=== PATIENT | male | born 1935 | race Caucasian/White ===

== ENCOUNTER 2016-06-27 08:00 | Outpatient (CLI) | payer MEDICARE, OTHER | END 2016-06-27 08:01 | disposition home or self-care (01) | DX: E78.5 Hyperlipidemia, unspecified (principal); I25.10 Atherosclerotic heart disease of native coronary artery without angina pectoris ==

== ENCOUNTER 2017-01-13 10:49 | Outpatient (CLI) | payer MEDICARE, OTHER ==
--- NOTE | 2017-01-13 15:14 | XRAY Report ---
PELVIS AND LEFT HIP: 01/13/2017 COMPARISON: Reformatted images from an abdomen and pelvic CT of 10/03/2014. FINDINGS: There is advanced left hip degenerative change with joint space narrowing, subchondral scl erosis, spurring, and cyst formation. Mild degenerative change in the right hip. Vascular calcificati on present. No fracture or malalignment. IMPRESSION: SEVERE LEFT HIP DEGENERATIVE CHANGE. MILD RIGHT HIP DEGENERATIVE CHANGE. NO SUPERIMPOSED ACUTE FINDINGS. JOB #: [id number] EXT JOB #:[id number]
== END 2017-01-13 10:50 | disposition home or self-care (01) ==
LOC: DI.S 10:49
PROVIDERS: ATTEND Internal Medicine
DX: M16.0 Bilateral primary osteoarthritis of hip (principal)

== ENCOUNTER 2017-03-14 10:26 | Outpatient (CLI) | payer MEDICARE, OTHER ==
[2017-03-14 17:54] LABS: CHOL/HDL RATIO 2.8 (<5.0); CHOLESTEROL 113 mg/dL; HDL CHOLESTEROL 40 mg/dL; LDL CHOLESTEROL,DIRECT 57 mg/dL; LDL/HDL RATIO 1.3 (<3.6); TRIGLYCERIDES 110 mg/dL; VLDL CHOLESTEROL 22 mg/dL
== END 2017-03-14 10:27 | disposition home or self-care (01) ==
LOC: LAB.F 10:26
PROVIDERS: ATTEND Internal Medicine Cardiovascular Disease
DX: I10 Essential (primary) hypertension (principal); E78.5 Hyperlipidemia, unspecified
CPT/HCPCS: 36415; 80061; 84450; 84460

== ENCOUNTER 2017-08-14 08:00 | Outpatient (CLI) | payer MEDICARE, OTHER ==
[2017-08-14 18:06] LABS: ALT ALANINE AMINOTRANSFERASE 21 IU/L (10-60); AST ASPARTATE AMINOTRANSFERASE 19 IU/L (10-42); CHOL/HDL RATIO 3.7 (<5.0); CHOLESTEROL 131 mg/dL; HDL CHOLESTEROL 35 mg/dL; LDL CHOLESTEROL,CALCULATED 64 mg/dL; LDL CHOLESTEROL,DIRECT 55 mg/dL; LDL/HDL RATIO 1.8 (<3.6); VLDL CHOLESTEROL 32 mg/dL
== END 2017-08-14 23:59 ==
LOC: LAB.S 08:00
PROVIDERS: ATTEND Internal Medicine Cardiovascular Disease
DX: I11.0 Hypertensive heart disease with heart failure (principal); I50.32 Chronic diastolic (congestive) heart failure; E78.5 Hyperlipidemia, unspecified
CPT/HCPCS: 36415; 80061; 83721; 84450; 84460

== ENCOUNTER 2017-08-18 09:11 | Day surgery (SDC) | payer MEDICARE, OTHER ==
[2017-08-18] MEDS ORDERED: LACTATED RINGERS 1,000 ML IV ONE (09:17)
[2017-08-18] MEDS ORDERED: GLYCOPYRROLATE 1 MG/5 ML VIAL IVP ONE (11:30)
[2017-08-18] MEDS ORDERED: MIDAZOLAM 2 MG/2 ML VIAL IVP ONE (11:30)
[2017-08-18] MEDS ORDERED: PROPOFOL 200 MG/20 ML VIAL IVP ONE (11:30)
[2017-08-18] MEDS ORDERED: KETAMINE 500 MG/10 ML VIAL IVP ONE (11:30)
[2017-08-18 12:02] VITALS: BP 145/57
== END 2017-08-18 09:12 | disposition home or self-care (01) ==
LOC: SDS 09:11
PROVIDERS: ATTEND Surgery
PROC: 0DJD8ZZ Inspection of Lower Intestinal Tract, Via Natural or Artificial Opening Endoscopic (ICD-10-PCS; principal; 2017-08-18 10:15)
DX: R19.7 Diarrhea, unspecified (principal); D50.9 Iron deficiency anemia, unspecified; K62.5 Hemorrhage of anus and rectum; K64.8 Other hemorrhoids; Z85.038 Personal history of other malignant neoplasm of large intestine; I11.0 Hypertensive heart disease with heart failure; I50.9 Heart failure, unspecified; E78.00 Pure hypercholesterolemia, unspecified; Z87.891 Personal history of nicotine dependence; G47.30 Sleep apnea, unspecified; Z90.49 Acquired absence of other specified parts of digestive tract
CPT/HCPCS: 45378; J7120

== ENCOUNTER 2017-11-10 19:14 | Outpatient (CLI) | payer MEDICARE, OTHER ==
--- NOTE | 2017-11-10 20:45 | XRAY Report ---
Procedure Date: 11/10/2017 Accession Number: [id number] / [id number] Procedure: XR - Ankle 3 View LT CPT Code: FULL RESULT: EXAM: LEFT ANKLE RADIOGRAPHY EXAM DATE: 11/10/2017 07:24 PM. CLINICAL HISTORY: Left ankle swelling, pain medial edema of foot. COMPARISON: None. TECHNIQUE: 3 views. FINDINGS: Distal tibia screws for internal fixation. Old healed distal tibia and fibula diaphyseal fractures. Mild tibiotalar degenerative joint disease. No subluxation. The bones are demineralized. No evidence for acute fracture. Mild diffuse ankle soft tissue swelling. Arterial calcifications are noted. Calcaneal bone spurs. IMPRESSION: Mild diffuse ankle soft tissue swelling. Chronic, degenerative and postsurgical changes as above. No acute bone findings are seen. RADIA
--- NOTE | 2017-11-10 20:49 | Ultrasound Report ---
Procedure Date: 11/10/2017 Accession Number: [id number] / [id number] Procedure: US - Duplex Ext Veins Left CPT Code: FULL RESULT: EXAM: LEFT LOWER EXTREMITY VENOUS ULTRASOUND EXAM DATE: 11/10/2017 07:52 PM. CLINICAL HISTORY: L ANKLE SWELLING PAIN MEDIAL EDEMA OF FOOT. COMPARISON: None. TECHNIQUE: Real-time sonographic vascular imaging was performed by the box truck owner operator through the lower extremity utilizing both color-flow and Doppler spectral analysis. Multiple fuels sales representative static images were saved for review. FINDINGS: Common Femoral Vein (CFV): Normal. CFV-GSV Junction: Normal. Profunda Femoral Vein (PFV): Normal. Femoral Vein (FV) Prox: Normal. Femoral Vein (FV) Mid: Normal. Femoral Vein (FV) Dist: Normal. Popliteal Vein: Normal. Posterior Tibial Veins: The visualized segments appear normal. Peroneal Veins: The visualized segments appear normal. Contralateral Side CFV: Normal. Other: None. IMPRESSION: No evidence for deep venous thrombosis. RADIA
--- NOTE | 2017-11-10 22:37 | XRAY Report ---
Procedure Date: 11/10/2017 Accession Number: [id number] / [id number] Procedure: XR - Foot 3 View LT CPT Code: FULL RESULT: EXAM: LEFT FOOT RADIOGRAPHY EXAM DATE: 11/10/2017 07:46 PM. CLINICAL HISTORY: Left ankle swelling, pain, medial edema of foot. COMPARISON: None. TECHNIQUE: 3 views. FINDINGS: No acute fracture or dislocation is seen and alignment is within normal limits. No lytic lesions or periosteal reaction seen. Small calcaneal bone spurs. Tibiotalar degenerative joint disease. Moderate dorsal talonavicular osteophytes. Arterial calcifications are noted. No definite acute soft tissue findings are seen in the left foot. IMPRESSION: No acute findings are seen in the left foot. Degenerative changes as above. RADIA
== END 2017-11-10 19:15 | disposition home or self-care (01) ==
LOC: DI 19:14
PROVIDERS: ATTEND Nurse Practitioner Family
DX: M19.072 Primary osteoarthritis, left ankle and foot (principal); R22.42 Localized swelling, mass and lump, left lower limb; M77.32 Calcaneal spur, left foot

== ENCOUNTER 2017-11-28 17:23 | Emergency (ER) | payer MEDICARE, OTHER ==
[2017-11-28 18:34] LABS: ALBUMIN 3.5 g/dL (3.2-5.5); ALBUMIN/GLOBULIN RATIO 0.9 (1.0-2.2); BILIRUBIN,TOTAL 0.7 mg/dL (0.2-1.0); CALCIUM 9.5 mg/dL (8.5-10.3); CREATININE 2.4 mg/dL (0.6-1.2); MAGNESIUM 1.7 mg/dL (1.7-2.8); TOTAL PROTEIN 7.6 g/dL (6.7-8.2)
[2017-11-28] MEDS ORDERED: SODIUM CHLORIDE 0.9% 1,000 ML IV ONE ×2 (19:37→19:40)
[2017-11-28] MEDS ORDERED: SODIUM POLYSTYRENE SULFONATE 15 GM/60 ML BOTTLE PO STA (19:40)
[2017-11-28] MEDS ORDERED: FUROSEMIDE 40 MG/4 ML VIAL IVP STA (19:40)
[2017-11-28] MEDS ORDERED: SODIUM BICARBONATE ABBOJECT 50 MEQ/50 ML SYRINGE IVP STA (19:40)
[2017-11-28 20:58] LABS: CALCIUM 9.3 mg/dL (8.5-10.3); CREATININE 2.3 mg/dL (0.6-1.2)
--- NOTE | 2017-11-28 21:53 | ED Physician Documentation ---
PD HPI DYSPNEA - Stated complaint Stated Complaint: SENT BY DOC/POTASSIUM LEVEL - Chief complaint Chief Complaint: Cardiac - History obtained from History obtained from: Patient - History of Present Illness Timing - onset: Today (he had nuclear stress test done today, and had labs done this mryina as part of that. Did okay with the test part. Was called by the office to come to ER as his labs from this morning showed creatinine 2.5 and potassium 6.1. The office person I talked to who called here with the info for us di dnot have other prior labs so did not know baseline for him. the patient had been fasting since yesterday (and had not drank fluid either as part of that ) per directions for the test.) Timing - details: Other (no chest pain nor worse dyspnea per se, but is feeling thirsty and some hungry, having fasted since yesterday after dinner. He has had some exertional dyspnea for months, which has led to the current nuclear stress test.) Inciting event(s): No: Immobilization/travel Improved by: Rest Associated symptoms: Bilateral edema (chronic). No: Fever, Cough, Wheezing, Chest pain / discomfort Recently seen: Clinic (had first part of nuclear stress test done today.) Review of Systems Constitutional: denies: Fever, Chills Nose: denies: Rhinorrhea / runny nose, Congestion Throat: denies: Sore throat Cardiac: reports: Pedal edema. denies: Chest pain / pressure, Palpitations, Calf pain Respiratory: reports: Dyspnea (ongoing for months, with stress test being done to evaluate that.). denies: Cough GI: denies: Nausea, Vomiting, Diarrhea PD PAST MEDICAL HISTORY - Past Medical History Past Medical History: Yes Cardiovascular: Hypertension, High cholesterol, [place] Respiratory: Pneumonia, CPAP use GI: GI bleed : Incontinence HEENT: Chronic hearing loss Musculoskeletal: Gout - Past Surgical History Past Surgical History: Yes General: Bowel surgery Cardiovascular: CABG - Present Medications Home Medications: Ambulatory Orders Medication Instructions Recorded Confirmed Ascorbic Acid [Vitamin C] 500 mg PO DAILY 10/03/14 08/18/17 Citalopram [CeleXA] 20 mg PO DAILY 10/03/14 08/18/17 Ferrous Sulfate, Dried [Iron] 65 mg PO TID 10/03/14 08/18/17 Finasteride 5 mg PO DAILY 10/03/14 08/18/17 Furosemide [Lasix] 40 mg PO DAILY 10/03/14 08/18/17 Metoprolol Succinate 25 mg PO DAILY 10/03/14 08/18/17 [place]-3 Fatty Acids/Fish Oil [Fish 1,000 mg PO DAILY 10/03/14 08/18/17 Oil 1,000 mg Capsule] Simvastatin 40 mg PO DAILY 10/03/14 08/18/17 Tamsulosin HCl [Flomax] 0.4 mg PO DAILY 10/03/14 08/18/17 Glucosamine HCl/Chondroitin [place] 2 each PO DAILY 08/18/17 08/18/17 [Endur-Flex Sr Tablet] Multivitamin [Multivitamins] 1 each PO DAILY 08/18/17 08/18/17 Oxybutynin Chloride [Ditropan Xl] 10 mg PO DAILY 08/18/17 08/18/17 Potassium Chloride 10 meq PO DAILY 08/18/17 08/18/17 Turmeric Root Extract [Turmeric] 500 mg PO DAILY 08/18/17 08/18/17 Sod Polystyrene Sulf. [Kayexalate] 15 gm PO BID #1 bottle 11/28/17 - Allergies Allergies/Adverse Reactions: Allergies Allergy/AdvReac Type Severity Reaction Status Date / Time No Known Drug Allergies Allergy Verified 11/28/17 19:31 - Social History Does the pt smoke?: No Smoking Status: Never smoker Does the pt drink ETOH?: Yes Does the pt have substance abuse?: No - Immunizations Immunizations are current?: Yes - POLST Patient has POLST: No PD ED PE NORMAL - Vitals Vital signs reviewed: Yes - General General: Alert and oriented X 3, No acute distress, Well developed/nourished, Other (obese) - Neck Neck: Supple, no meningeal sign, No adenopathy - Cardiac Cardiac: RRR, No murmur - Respiratory Respiratory: Clear bilaterally - Abdomen Abdomen: Normal bowel sounds, Soft, Non tender - Back Back: No CVA TTP - Derm Derm: Normal color, Warm and dry - Extremities Extremities: No calf tenderness / cord, Other (1+ edema in both legs and ankles. Some chronic stasis changes noted. ) - Neuro Neuro: Alert and oriented X 3, No motor deficit, Normal speech - Psych Psych: Normal mood, Normal affect Results - Vitals Vitals: Vital Signs - 24 hr 11/28/17 11/28/17 11/28/17 17:48 18:22 19:25 Temperature 36.4 C L 36.4 C L Heart Rate 69 60 60 Respiratory 20 14 14 Rate Blood Pressure 102/54 L 139/64 H 147/67 H O2 Saturation 96 97 99 11/28/17 11/28/17 11/28/17 20:05 20:54 21:20 Temperature 36.0 C L Heart Rate 62 65 65 Respiratory 19 14 19 Rate Blood Pressure 151/73 H 166/75 H 147/76 H O2 Saturation 99 100 98 11/28/17 22:01 Temperature 36.2 C L Heart Rate 64 Respiratory 16 Rate Blood Pressure 157/76 H O2 Saturation 100 Oxygen O2 Source Room air - Tele (time rhythm occurred) presentation Telemetry / rhythm strip: Rate (60s), NSR, Other (normal QRS and no conduction abnormality seen. ) - Labs Labs: Laboratory Tests 11/28/17 11/28/17 18:10 20:45 Sodium 134 L 137 Potassium 5.9 H 5.8 H Chloride 106 105 Carbon Dioxide 19 L 24 Anion Gap 9.0 8.0 BUN 37 H 37 H Creatinine 2.4 H 2.3 H Estimated GFR (MDRD) 26 L 27 L Glucose 113 H 98 Calcium 9.5 9.3 Magnesium 1.7 Total Bilirubin 0.7 AST 23 ALT 23 Alkaline Phosphatase 59 Total Protein 7.6 Albumin 3.5 Globulin 4.1 Albumin/Globulin Ratio 0.9 L Lipase 46 PD MEDICAL DECISION MAKING - ED course Complexity details: reviewed results (potassium is lowering slowly (was 6.1 this morning, then 5.9, and 5.8) and creatinine 2.5, 2.4, 2.3. He feels okay and ECG normal. Seems related to recent underhydration atop chronic renal insufficiency (similar creatinine in 2016). I don't feel he needs hospitalization. ), considered differential (likely underhydration atop chronic renal insufficiency. ), d/w patient - Sepsis Event Vital Signs: Vital Signs - 24 hr 11/28/17 11/28/17 11/28/17 17:48 18:22 19:25 Temperature 36.4 C L 36.4 C L Heart Rate 69 60 60 Respiratory 20 14 14 Rate Blood Pressure 102/54 L 139/64 H 147/67 H O2 Saturation 96 97 99 11/28/17 11/28/17 11/28/17 20:05 20:54 21:20 Temperature 36.0 C L Heart Rate 62 65 65 Respiratory 19 14 19 Rate Blood Pressure 151/73 H 166/75 H 147/76 H O2 Saturation 99 100 98 11/28/17 22:01 Temperature 36.2 C L Heart Rate 64 Respiratory 16 Rate Blood Pressure 157/76 H O2 Saturation 100 Oxygen O2 Source Room air Departure - Departure Disposition: 01 Home, Self Care Clinical Impression: Acute hyperkalemia, Dehydration Chronic renal insufficiency Qualifiers: Chronic kidney disease stage: unspecified stage Qualified Code(s): N18.9 - Chronic kidney disease, unspecified Condition: Stable Record reviewed to determine appropriate education?: Yes Instructions: Hyperkalemia Dc Follow-Up: Wiliam Perez MD [Primary Care Provider] - Prescriptions: Sod Polystyrene Sulf. [Kayexalate] 15 gm PO BID #1 bottle Comments: Your creatinine which is a measure of kidney function and your potassium level were both elevated. These are likely elevated chronically to some degree but were worsened because of the under hydration of the last day or two. Continue with your nuclear stress test tomorrow as planned. Do the food restrictions as needed for the test. However make sure you stay well hydrated for water. I would hold your Lasix dose tomorrow. Add Kayexalate to help lower the potassium level over the next 2 days. Follow-up with your primary care to have your kidney function and potassium level rechecked on . Return if problems. Be sure you are not taking any potassium supplements nor high potassium rich foods. Discharge Date/Time: 11/28/17 22:10
[2017-11-28 22:02] VITALS: BP 157/76
== END 2017-11-28 22:10 | disposition home or self-care (01) ==
LOC: ED 17:23
DX: E87.5 Hyperkalemia (principal); E86.0 Dehydration; I12.9 Hypertensive chronic kidney disease with stage 1 through stage 4 chronic kidney disease, or unspecified chronic kidney disease; N18.9 Chronic kidney disease, unspecified; E78.00 Pure hypercholesterolemia, unspecified; I25.2 Old myocardial infarction; Z95.1 Presence of aortocoronary bypass graft
CPT/HCPCS: 36415; 80048; 80053; 83690; 83735; 96361; 96374; 96375; 99284; A9270

== ENCOUNTER 2018-12-26 12:15 | Outpatient (CLI) | payer MEDICARE, OTHER ==
[2018-12-26 17:40] LABS: BASOPHILS # (AUTO) 0.1 10^3/uL (0.0-0.1); BASOPHILS % (AUTO) 0.6 %; EOSINOPHILS # (AUTO) 0.1 10^3/uL (0.0-0.7); EOSINOPHILS % (AUTO) 1.2 %; HGB - HEMOGLOBIN 13.1 g/dL (14.0-18.0); LYMPHOCYTES # (AUTO) 1.4 10^3/uL (1.5-3.5); LYMPHOCYTES % (AUTO) 15.7 %; MEAN CORPUSCULAR HEMOGLOBIN 29.4 pg (27.0-31.0); MEAN CORPUSCULAR VOLUME 92.1 fL (80.0-94.0); MEAN PLATELET VOLUME 10.8 fL (7.4-11.4); MONOCYTES # (AUTO) 0.8 10^3/uL (0.0-1.0); MONOCYTES % (AUTO) 8.7 %; NEUTROPHILS # (AUTO) 6.5 10^3/uL (1.5-6.6); NEUTROPHILS % (AUTO) 73.2 %; PLT - PLATELET COUNT 198 10^3/uL (130-450); RED BLOOD COUNT 4.45 10^6/uL (4.70-6.10); WHITE BLOOD COUNT 8.9 x10^3/uL (4.8-10.8)
[2018-12-26 17:53] LABS: ALBUMIN 3.9 g/dL (3.2-5.5); ALKALINE PHOSPHATASE 86 IU/L (42-121); ALT ALANINE AMINOTRANSFERASE 18 IU/L (10-60); AST ASPARTATE AMINOTRANSFERASE 21 IU/L (10-42); BILIRUBIN,TOTAL 0.9 mg/dL (0.2-1.0); BUN - BLOOD UREA NITROGEN 26 mg/dL (6-20); CALCIUM 9.5 mg/dL (8.5-10.3); CARBON DIOXIDE - CO2 24 mmol/L (21-32); CHLORIDE 105 mmol/L (101-111); CHOL/HDL RATIO 2.6 (<5.0); CHOLESTEROL 114 mg/dL; CK- CREATINE KINASE 60 IU/L (22-269); CREATININE 1.8 mg/dL (0.6-1.2); GFR - MDRD 36 (>89); GLUCOSE 118 mg/dL (70-100); HDL CHOLESTEROL 44 mg/dL; LDL CHOLESTEROL,CALCULATED 49 mg/dL; LDL CHOLESTEROL,DIRECT 55 mg/dL; LDL/HDL RATIO 1.1 (<3.6); SODIUM 140 mmol/L (135-145); TOTAL PROTEIN 7.7 g/dL (6.7-8.2); VLDL CHOLESTEROL 21 mg/dL
== END 2018-12-26 12:16 | disposition home or self-care (01) ==
LOC: LAB.S 12:15
PROVIDERS: ATTEND Internal Medicine Cardiovascular Disease
DX: I11.0 Hypertensive heart disease with heart failure (principal); I50.32 Chronic diastolic (congestive) heart failure; I25.10 Atherosclerotic heart disease of native coronary artery without angina pectoris; E78.5 Hyperlipidemia, unspecified; I48.0 Paroxysmal atrial fibrillation; M10.9 Gout, unspecified
CPT/HCPCS: 36415; 80053; 80061; 82550; 83721; 83880; 84550; 85025

== ENCOUNTER 2019-01-25 09:44 | Outpatient (CLI) | payer MEDICARE, OTHER | END 2019-01-25 09:45 | disposition critical access hospital (66) | LOC: EMS 09:44 | PROVIDERS: ATTEND Surgery | DX: R06.02 Shortness of breath (principal) | CPT/HCPCS: A0425; A0427 ==

== ENCOUNTER 2019-01-25 10:27 | Emergency (ER) | payer MEDICARE, OTHER ==
[2019-01-25] MEDS ORDERED: LORazepam 2 MG/ML VIAL IVP STA (10:52)
[2019-01-25 11:02] LABS: BASOPHILS % (AUTO) 0.4 %; EOSINOPHILS # (AUTO) 0.1 10^3/uL (0.0-0.7); HGB - HEMOGLOBIN 12.7 g/dL (14.0-18.0); LYMPHOCYTES # (AUTO) 1.1 10^3/uL (1.5-3.5); LYMPHOCYTES % (AUTO) 11.5 %; MEAN CORPUSCULAR HEMOGLOBIN 29.6 pg (27.0-31.0); MEAN CORPUSCULAR VOLUME 92.5 fL (80.0-94.0); MEAN PLATELET VOLUME 9.8 fL (7.4-11.4); MONOCYTES # (AUTO) 0.8 10^3/uL (0.0-1.0); MONOCYTES % (AUTO) 8.1 %; NEUTROPHILS # (AUTO) 7.5 10^3/uL (1.5-6.6); NEUTROPHILS % (AUTO) 78.7 %; PLT - PLATELET COUNT 144 10^3/uL (130-450); RED BLOOD COUNT 4.29 10^6/uL (4.70-6.10); RED CELL DISTRIBUTION WIDTH 15.9 % (12.0-15.0); WHITE BLOOD COUNT 9.6 x10^3/uL (4.8-10.8)
--- NOTE | 2019-01-25 11:16 | ED Physician Documentation ---
PD HPI DYSPNEA - Stated complaint Stated Complaint: SOA - Chief complaint Chief Complaint: Resp - History obtained from History obtained from: Patient, EMS - History of Present Illness Timing - onset: Today Timing - onset during: Rest Timing - duration: Hours (1) Timing - details: Abrupt onset Pain level max: 0 Pain level now: 0 Inciting event(s): Other (states felt like he couldn't catch his breath today.) Improved by: BiPAP / CPAP, Sitting up Worsened by: Laying flat (lies flat at night with one small pillow) Associated symptoms: No: Fever, Cough, Hemoptysis, Wheezing, Chest pain / discomfort, Palpitations, Diaphoresis, Bilateral edema Similar symptoms before: Diagnosis (sleep apnea) - Additional information Additional information: feels better now. Recently started on omperazole and metoprolol increased. Review of Systems Ten Systems: 10 systems reviewed and negative Constitutional: denies: Fever, Chills Ears: denies: Ear pain Nose: denies: Rhinorrhea / runny nose, Congestion Throat: denies: Sore throat Cardiac: denies: Chest pain / pressure Respiratory: denies: Cough GI: denies: Nausea, Vomiting, Diarrhea Skin: denies: Rash Musculoskeletal: denies: Neck pain, Back pain Neurologic: denies: Headache PD PAST MEDICAL HISTORY - Past Medical History Cardiovascular: Hypertension, High cholesterol, [place] Respiratory: Pneumonia, CPAP use GI: GI bleed : Incontinence HEENT: Chronic hearing loss Musculoskeletal: Gout - Past Surgical History Past Surgical History: Yes General: Bowel surgery Cardiovascular: CABG - Present Medications Home Medications: Ambulatory Orders Medication Instructions Recorded Confirmed Ascorbic Acid [Vitamin C] 500 mg PO DAILY 10/03/14 08/18/17 Citalopram [CeleXA] 20 mg PO DAILY 10/03/14 08/18/17 Ferrous Sulfate, Dried [Iron] 65 mg PO TID 10/03/14 08/18/17 Finasteride 5 mg PO DAILY 10/03/14 08/18/17 Furosemide [Lasix] 40 mg PO DAILY 10/03/14 08/18/17 Metoprolol Succinate 25 mg PO DAILY 10/03/14 08/18/17 [place]-3 Fatty Acids/Fish Oil [Fish 1,000 mg PO DAILY 10/03/14 08/18/17 Oil 1,000 mg Capsule] Simvastatin 40 mg PO DAILY 10/03/14 08/18/17 Tamsulosin HCl [Flomax] 0.4 mg PO DAILY 10/03/14 08/18/17 Glucosamine HCl/Chondroitin [place] 2 each PO DAILY 08/18/17 08/18/17 [Endur-Flex Sr Tablet] Multivitamin [Multivitamins] 1 each PO DAILY 08/18/17 08/18/17 Oxybutynin Chloride [Ditropan Xl] 10 mg PO DAILY 08/18/17 08/18/17 Potassium Chloride 10 meq PO DAILY 08/18/17 08/18/17 Turmeric Root Extract [Turmeric] 500 mg PO DAILY 08/18/17 08/18/17 Sod Polystyrene Sulf. [Kayexalate] 15 gm PO BID #1 bottle 11/28/17 - Allergies Allergies/Adverse Reactions: Allergies Allergy/AdvReac Type Severity Reaction Status Date / Time lisinopril Allergy Unknown Verified 01/25/19 10:32 - Social History Does the pt smoke?: No Smoking Status: Never smoker Does the pt drink ETOH?: Yes ETOH Use: Wine Does the pt have substance abuse?: No - Immunizations Immunizations are current?: Yes - POLST Patient has POLST: Yes PD ED PE NORMAL - Vitals Vital signs reviewed: Yes - General General: Alert and oriented X 3, No acute distress, Other (obese male) - HEENT HEENT: PERRL, Moist mucous membranes - Neck Neck: Supple, no meningeal sign - Cardiac Cardiac: RRR, Strong equal pulses - Respiratory Respiratory: No respiratory distress, Clear bilaterally - Abdomen Abdomen: Normal bowel sounds, Soft, Non tender, Non distended - Derm Derm: Warm and dry - Extremities Extremities: Other (1+ BLE edema) - Neuro Neuro: Alert and oriented X 3 - Psych Psych: Normal mood, Normal affect Results - Vitals Vitals: Vital Signs - 24 hr 01/25/19 01/25/19 01/25/19 10:32 12:46 13:28 Temperature 37.1 C Heart Rate 62 74 79 Respiratory 17 22 22 Rate Blood Pressure 165/78 H 170/69 H 183/90 H O2 Saturation 95 99 93 Oxygen O2 Source Nasal cannula - EKG (time done) 1033 Rate: Rate (enter#) (76) Rhythm: NSR [place]: Normal Intervals: Normal DC QRS: Normal Ischemia: Normal ST segments - Labs Labs: Laboratory Tests 01/25/19 01/25/19 01/25/19 10:50 10:50 10:50 WBC 9.6 RBC 4.29 L Hgb 12.7 L Hct 39.7 L MCV 92.5 MCH 29.6 MCHC 32.0 RDW 15.9 H Plt Count 144 MPV 9.8 Neut # (Auto) 7.5 H Lymph # (Auto) 1.1 L [place] # (Auto) 0.8 Eos # (Auto) 0.1 Baso # (Auto) 0.0 Absolute Nucleated RBC 0.00 Nucleated RBC % 0.0 Sodium 140 Potassium 4.0 Chloride 107 Carbon Dioxide 23 Anion Gap 10.0 BUN 26 H Creatinine 1.5 H Estimated GFR (MDRD) 45 L Glucose 127 H Calcium 9.0 Total Bilirubin 1.5 H AST 18 ALT 17 Alkaline Phosphatase 71 B-Natriuretic Peptide 351 H Total Protein 7.5 Albumin 3.7 Globulin 3.8 Albumin/Globulin Ratio 1.0 Lipase 30 - Rads (name of study) cxr Radiology: Prelim report reviewed, EMP read contemporaneously, See rad report (pulm edema) PD MEDICAL DECISION MAKING - ED course Complexity details: reviewed results, re-evaluated patient, considered differential, d/w patient, d/w family ED course: Patient with what appears to be CHF exacerbation. He was just started on Lasix yesterday. Given extra dose of Lasix here with good urine output. He feels better after this. No hypoxia. Ambulating without difficulty. We will have him prop himself up at night. We will continue his CPAP at home. Patient has well-appearing, nontoxic. Afebrile. Patient and family counseled regarding signs and symptoms for which I believe and urgent re-evaluation would be necessary. Patient with good understanding of and agreement to plan and is comfortable going home at this time This document was made in part using voice recognition software. While efforts are made to proofread this document, sound alike and grammatical errors may occur. Departure - Departure Disposition: 01 Home, Self Care Clinical Impression: Pulmonary edema Qualifiers: Chronicity: acute Qualified Code(s): J81.0 - Acute pulmonary edema Congestive heart failure Qualifiers: Heart failure type: unspecified Heart failure chronicity: acute on chronic Qualified Code(s): I50.9 - Heart failure, unspecified Condition: Good Instructions: ED CHF General Follow-Up: Wiliam Perez MD [Primary Care Provider] - Within 3 Days Comments: Continue your Lasix at home. Return if you worsen. Follow-up with your doctor for further care. You likely will also sleep better if you are propped up on several pillows. Discharge Date/Time: 01/25/19 14:07
[2019-01-25 11:17] LABS: ALBUMIN 3.7 g/dL (3.2-5.5); BILIRUBIN,TOTAL 1.5 mg/dL (0.2-1.0); CREATININE 1.5 mg/dL (0.6-1.2); TOTAL PROTEIN 7.5 g/dL (6.7-8.2)
[2019-01-25] MEDS ORDERED: FUROSEMIDE 40 MG/4 ML VIAL IVP STA (11:56)
--- NOTE | 2019-01-25 12:11 | XRAY Report ---
Reason: cough Procedure Date: 01/25/2019 Accession Number: [id number] / [id number] Procedure: XR - Chest 2 View X-Ray CPT Code: 29593 FULL RESULT: EXAM: CHEST RADIOGRAPHY EXAM DATE: 01/25/2019 11:45 AM. CLINICAL HISTORY: Cough. COMPARISON: XR CHEST PA AND LAT 10/22/2011 4:57 PM. TECHNIQUE: 2 views. FINDINGS: Lungs/Pleura: Bilateral alveolar and interstitial opacification, compatible with pulmonary edema. Minimal consolidation versus fluid at the posterior costophrenic angles. Mediastinum: Previous cardiac surgery and median sternotomy. Heart size upper limits of normal. Other: None. IMPRESSION: Findings consistent with pulmonary edema. RADIA
[2019-01-25 13:28] VITALS: BP 183/90
== END 2019-01-25 14:07 | disposition home or self-care (01) ==
LOC: EDUNIT# → ED 10:27
DX: I11.0 Hypertensive heart disease with heart failure (principal); I50.1 Left ventricular failure, unspecified
CPT/HCPCS: 36415; 71046; 80053; 83690; 83880; 85025; 93005; 96374; 96375; 99283; 99284; J2060

== ENCOUNTER 2019-02-01 11:25 | Outpatient (CLI) | payer MEDICARE, OTHER ==
[2019-02-01 18:34] LABS: ALBUMIN 3.9 g/dL (3.2-5.5); CALCIUM 9.3 mg/dL (8.5-10.3); CREATININE 1.7 mg/dL (0.6-1.2); PHOSPHORUS 3.6 mg/dL (2.5-4.6)
== END 2019-02-01 11:26 | disposition home or self-care (01) ==
LOC: LAB.S 11:25
PROVIDERS: ATTEND Internal Medicine Cardiovascular Disease
DX: I25.10 Atherosclerotic heart disease of native coronary artery without angina pectoris (principal); I50.32 Chronic diastolic (congestive) heart failure; I48.0 Paroxysmal atrial fibrillation
CPT/HCPCS: 36415; 80048; 80069

== ENCOUNTER 2019-02-19 12:04 | Outpatient (CLI) | payer MEDICARE, OTHER ==
[2019-02-19 17:38] LABS: CALCIUM 9.7 mg/dL (8.5-10.3)
== END 2019-02-19 12:05 | disposition home or self-care (01) ==
LOC: LAB.S 12:04
PROVIDERS: ATTEND Physician Assistant
DX: I25.10 Atherosclerotic heart disease of native coronary artery without angina pectoris (principal); I50.32 Chronic diastolic (congestive) heart failure; I48.0 Paroxysmal atrial fibrillation
CPT/HCPCS: 36415; 80048; 83880

== ENCOUNTER 2019-03-01 15:35 | Outpatient (CLI) | payer MEDICARE, OTHER ==
[2019-03-01 18:19] LABS: CALCIUM 9.4 mg/dL (8.5-10.3); CREATININE 2.1 mg/dL (0.6-1.2)
== END 2019-03-01 15:36 | disposition home or self-care (01) ==
LOC: LAB.S 15:35
PROVIDERS: ATTEND Physician Assistant
DX: I50.32 Chronic diastolic (congestive) heart failure (principal); I25.10 Atherosclerotic heart disease of native coronary artery without angina pectoris; I48.0 Paroxysmal atrial fibrillation
CPT/HCPCS: 36415; 80048; 83880

== ENCOUNTER 2019-04-15 13:24 | Outpatient (CLI) | payer MEDICARE, OTHER ==
[2019-04-15 17:22] LABS: CALCIUM 9.1 mg/dL (8.5-10.3); CREATININE 1.7 mg/dL (0.6-1.2)
== END 2019-04-15 13:25 | disposition home or self-care (01) ==
LOC: LAB.S 13:24
PROVIDERS: ATTEND Internal Medicine Cardiovascular Disease
DX: I11.0 Hypertensive heart disease with heart failure (principal); I50.32 Chronic diastolic (congestive) heart failure
CPT/HCPCS: 36415; 80048; 83880

== ENCOUNTER 2019-05-21 13:02 | Outpatient (CLI) | payer MEDICARE, OTHER ==
--- NOTE | 2019-05-22 10:11 | XRAY Report ---
Reason: OSTEOARTHRITIS OF LT HIP Procedure Date: 05/21/2019 Accession Number: [id number] / [id number] Procedure: XRS - Hip w/Pelvis 2-3V LT CPT Code: Final Report FULL RESULT: EXAM: LEFT HIP RADIOGRAPHY EXAM DATE: 05/21/2019 01:29 PM. CLINICAL HISTORY: OSTEOARTHRITIS OF LT HIP. COMPARISON: HIP W/PELVIS 2-3V LT 01/13/2017 11:10 AM. TECHNIQUE: 2 views. FINDINGS: Bones: Normal. No fractures or bone lesion. Joints: Normal alignment of bilateral hips. There is severe left and moderate right hip joint space narrowing with osteophytes Soft Tissues: No soft tissue swelling. Vascular calcifications noted. IMPRESSION: 1. No evidence for acute fracture or dislocation. 2. 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 RADIA
== END 2019-05-21 13:03 | disposition home or self-care (01) ==
LOC: DI.S 13:02
PROVIDERS: ATTEND Internal Medicine
DX: M16.0 Bilateral primary osteoarthritis of hip (principal)

== ENCOUNTER 2019-07-18 14:22 | Outpatient (CLI) | payer MEDICARE, OTHER ==
[2019-07-18 16:08] LABS: BASOPHILS % (AUTO) 0.7 %; EOSINOPHILS # (AUTO) 0.1 10^3/uL (0.0-0.7); EOSINOPHILS % (AUTO) 1.5 %; HGB - HEMOGLOBIN 13.9 g/dL (14.0-18.0); LYMPHOCYTES # (AUTO) 1.2 10^3/uL (1.5-3.5); LYMPHOCYTES % (AUTO) 20.2 %; MEAN CORPUSCULAR HEMOGLOBIN 29.1 pg (27.0-31.0); MEAN CORPUSCULAR HGB CONC 31.7 g/dL (32.0-36.0); MEAN CORPUSCULAR VOLUME 91.8 fL (80.0-94.0); MEAN PLATELET VOLUME 10.7 fL (7.4-11.4); MONOCYTES # (AUTO) 0.6 10^3/uL (0.0-1.0); MONOCYTES % (AUTO) 9.3 %; NEUTROPHILS # (AUTO) 4.1 10^3/uL (1.5-6.6); NEUTROPHILS % (AUTO) 68.1 %; PLT - PLATELET COUNT 213 10^3/uL (130-450); RED BLOOD COUNT 4.77 10^6/uL (4.70-6.10); RED CELL DISTRIBUTION WIDTH 14.7 % (12.0-15.0); WHITE BLOOD COUNT 6.1 x10^3/uL (4.8-10.8)
[2019-07-18 16:20] LABS: BILIRUBIN,URINE NEGATIVE (NEGATIVE); GLUCOSE, URINE (UA) NEGATIVE (NEGATIVE); KETONES,URINE (UA) NEGATIVE (NEGATIVE); LEUKOCYTE ESTERASE, URINE NEGATIVE (NEGATIVE); NITRITE,URINE NEGATIVE (NEGATIVE); OCCULT BLOOD,URINE NEGATIVE (NEGATIVE); PH,URINE 6.5 PH (5.0-7.5); PROTEIN,URINE NEGATIVE (NEGATIVE); UROBILINOGEN,URINE 0.2 (NORMAL) E.U./dL (NORMAL)
[2019-07-18 16:24] LABS: ALBUMIN 3.9 g/dL (3.2-5.5); CALCIUM 9.7 mg/dL (8.5-10.3); CREATININE 1.7 mg/dL (0.6-1.2)
[2019-07-18 16:29] LABS: BACTERIA,URINE None Seen /HPF (None Seen); CLARITY,URINE CLEAR (CLEAR); RBC,URINE None Seen /HPF (0-5); SQUAMOUS EPITHELIAL CELL,UR NONE SEEN (<= Few)
== END 2019-07-18 14:23 | disposition home or self-care (01) ==
LOC: LAB.S 14:22
PROVIDERS: ATTEND Internal Medicine
DX: R44.1 Visual hallucinations (principal)
CPT/HCPCS: 36415; 80053; 81001; 82607; 82746; 84443; 85025; 87086

== ENCOUNTER 2019-07-19 09:05 | Outpatient (CLI) | payer MEDICARE, OTHER ==
--- NOTE | 2019-07-19 10:04 | CT Report ---
Reason: VISUAL HALLUCINATIONS Procedure Date: 07/19/2019 Accession Number: [id number] / [id number] Procedure: CT - HEAD WO CPT Code: Final Report FULL RESULT: EXAM: CT HEAD EXAM DATE: 07/19/2019 09:52 AM. CLINICAL HISTORY: VISUAL HALLUCINATIONS. COMPARISON: None. TECHNIQUE: Multiaxial CT images were obtained from the foramen magnum to the vertex. Reformats: Sagittal and coronal. IV contrast: None. In accordance with CT protocol optimization, one or more of the following dose reduction techniques were utilized for this exam: automated exposure control, adjustment of mA and/or KV based on patient size, or use of iterative reconstructive technique. FINDINGS: Parenchyma: Evidence of diffuse parenchymal volume loss. Mild low attenuation in the periventricular white matter. No acute hemorrhage, mass-effect, or midline shift. Andrea-white differentiation appears maintained. Extraaxial Spaces: No acute extra-axial collection. Ventricles: Appropriate in size and configuration. Sinuses and Orbits: Imaged paranasal sinuses with minimal thickening. Orbits and mastoids show no significant abnormality. Bones: No depressed skull fracture. Other: Atherosclerotic vascular calcification. IMPRESSION: No acute intracranial abnormal abnormality identified. Probable age-related diffuse parenchymal volume loss and chronic microvascular ischemic change. RADIA
== END 2019-07-19 09:06 | disposition home or self-care (01) ==
LOC: DI 09:05
PROVIDERS: ATTEND Internal Medicine
DX: R44.1 Visual hallucinations (principal)
CPT/HCPCS: 70450

== ENCOUNTER 2020-05-18 08:00 | Outpatient (CLI) | payer MEDICARE, OTHER ==
--- NOTE | 2020-05-18 15:57 | XRAY Report ---
PROCEDURE: Chest 2 View X-Ray INDICATIONS: SHORTNESS OF BREATH TECHNIQUE: 2 view(s) of the chest. COMPARISON: 01/25/2019. FINDINGS: Surgical changes and devices: Median sternotomy wires and surgical clips are again seen.. Lungs and pleura: No pleural effusions or pneumothorax. Increased opacity in right infrahilar region is noted, concerning for developing right lower lobe infiltrate. Mediastinum: Mediastinal contours are normal. Heart size is enlarged. Bones and chest wall: No suspicious bony abnormalities. Soft tissues appear unremarkable. IMPRESSION: Ill-defined increased opacity in right infrahilar region concerning for developing right lower lobe infiltrate. No pleural effusion or pneumothorax. Reviewed by: Alan Kelley MD on 05/18/2020 3:55 PM PST Approved by: Alan Kelley MD on 05/18/2020 3:55 PM PST Station ID: [id number]
[2020-05-18 19:54] LABS: BASOPHILS # (AUTO) 0.1 10^3/uL (0.0-0.1); BASOPHILS % (AUTO) 0.8 %; EOSINOPHILS # (AUTO) 0.2 10^3/uL (0.0-0.7); EOSINOPHILS % (AUTO) 2.3 %; HGB - HEMOGLOBIN 14.1 g/dL (14.0-18.0); LYMPHOCYTES # (AUTO) 1.5 10^3/uL (1.5-3.5); LYMPHOCYTES % (AUTO) 19.4 %; MEAN CORPUSCULAR HEMOGLOBIN 30.5 pg (27.0-31.0); MEAN CORPUSCULAR HGB CONC 32.3 g/dL (32.0-36.0); MEAN CORPUSCULAR VOLUME 94.4 fL (80.0-94.0); MEAN PLATELET VOLUME 10.3 fL (7.4-11.4); MONOCYTES # (AUTO) 0.7 10^3/uL (0.0-1.0); MONOCYTES % (AUTO) 9.5 %; NEUTROPHILS # (AUTO) 5.2 10^3/uL (1.5-6.6); NEUTROPHILS % (AUTO) 67.7 %; PLT - PLATELET COUNT 159 10^3/uL (130-450); RED BLOOD COUNT 4.62 10^6/uL (4.70-6.10); RED CELL DISTRIBUTION WIDTH 16.3 % (12.0-15.0); WHITE BLOOD COUNT 7.7 x10^3/uL (4.8-10.8)
[2020-05-18 20:18] LABS: ALBUMIN 3.2 g/dL (3.2-5.5); ALBUMIN/GLOBULIN RATIO 0.9 (1.0-2.2); BILIRUBIN,TOTAL 0.9 mg/dL (0.2-1.0); CREATININE 1.6 mg/dL (0.6-1.2); TOTAL PROTEIN 6.6 g/dL (6.7-8.2)
== END 2020-05-18 23:59 | disposition home or self-care (01) ==
LOC: DI.S 08:00
PROVIDERS: ATTEND Physician Assistant Medical
DX: R91.8 Other nonspecific abnormal finding of lung field (principal); R06.02 Shortness of breath; R05 Cough; Z20.822 Contact with and (suspected) exposure to COVID-19
CPT/HCPCS: 36415; 71046; 80053; 83880; 85025; 87275; 87276; U0004

== ENCOUNTER 2020-05-19 16:21 | Emergency (ER) | payer MEDICARE, OTHER ==
--- NOTE | 2020-05-19 16:49 | ED Physician Documentation ---
PD HPI CHEST PAIN - Stated complaint Stated Complaint: IRREGULAR HEARTBEAT/SOA - Chief complaint Chief Complaint: Cardiac - History obtained from History obtained from: Patient - Additional information Additional information: 85-year-old gentleman with history of coronary disease, CABG presents with shortness of breath which been ongoing and chronic. More recently yesterday was seen in urgent care. He does not remember for what. He said that his heart rate there was 195. Now presents feeling anxious. His wfe clarified that he's has been sick x 2 week with cough/sneezing. No fevers. Seen for that yesterday and rx doxycycline for CXR showing small RLL pna. Review of Systems Ten Systems: 10 systems reviewed and negative Constitutional: reports: Reviewed and negative Nose: denies: Rhinorrhea / runny nose, Congestion Throat: reports: Reviewed and negative Cardiac: reports: Palpitations. denies: Chest pain / pressure, Pedal edema, Calf pain Respiratory: reports: Dyspnea PD PAST MEDICAL HISTORY - Past Medical History Cardiovascular: Hypertension, High cholesterol, [place] Respiratory: Pneumonia, CPAP use GI: GI bleed : Incontinence HEENT: Chronic hearing loss Musculoskeletal: Gout - Past Surgical History Past Surgical History: Yes General: Bowel surgery Cardiovascular: CABG - Present Medications Home Medications: Ambulatory Orders Medication Instructions Recorded Confirmed Ascorbic Acid [Vitamin C] 500 mg PO DAILY 10/03/14 08/18/17 Citalopram [CeleXA] 20 mg PO DAILY 10/03/14 08/18/17 Ferrous Sulfate, Dried [Iron] 65 mg PO TID 10/03/14 08/18/17 Finasteride 5 mg PO DAILY 10/03/14 08/18/17 Furosemide [Lasix] 40 mg PO DAILY 10/03/14 08/18/17 Metoprolol Succinate 25 mg PO DAILY 10/03/14 08/18/17 [place]-3 Fatty Acids/Fish Oil [Fish 1,000 mg PO DAILY 10/03/14 08/18/17 Oil 1,000 mg Capsule] Simvastatin 40 mg PO DAILY 10/03/14 08/18/17 Tamsulosin HCl [Flomax] 0.4 mg PO DAILY 10/03/14 08/18/17 Glucosamine HCl/Chondroitin [place] 2 each PO DAILY 08/18/17 08/18/17 [Endur-Flex Sr Tablet] Multivitamin [Multivitamins] 1 each PO DAILY 08/18/17 08/18/17 Oxybutynin Chloride [Ditropan Xl] 10 mg PO DAILY 08/18/17 08/18/17 Potassium Chloride 10 meq PO DAILY 08/18/17 08/18/17 Turmeric Root Extract [Turmeric] 500 mg PO DAILY 08/18/17 08/18/17 Sod Polystyrene Sulf. [Kayexalate] 15 gm PO BID #1 bottle 11/28/17 - Allergies Allergies/Adverse Reactions: Allergies Allergy/AdvReac Type Severity Reaction Status Date / Time lisinopril Allergy Unknown Verified 05/19/20 16:36 - Social History Does the pt smoke?: No Smoking Status: Never smoker Does the pt drink ETOH?: Yes Does the pt have substance abuse?: No - Immunizations Immunizations are current?: Yes - POLST Patient has POLST: Yes PD ED PE NORMAL - Vitals Vital signs reviewed: Yes - General General: No acute distress, Well developed/nourished, Other (mild confusion) - HEENT HEENT: PERRL, EOMI - Neck Neck: Supple, no meningeal sign, No bony TTP - Cardiac Cardiac: Other (irreg, no murmur) - Respiratory Respiratory: No respiratory distress, Clear bilaterally - Abdomen Abdomen: Soft, Non tender - Back Back: No CVA TTP, No spinal TTP - Derm Derm: Normal color, Warm and dry - Extremities Extremities: No edema, No calf tenderness / cord - Neuro Eye Opening: Spontaneous Motor: Obeys Commands Verbal: Confused GCS Score: 14 Results - Vitals Vitals: Vital Signs - 24 hr 05/19/20 16:29 Temperature 36.5 C Heart Rate 65 Respiratory 20 Rate Blood Pressure 156/60 H Oxygen O2 Source Nasal cannula - EKG (time done) 1630 Rate: Rate (enter#) (61) Rhythm: Atrial fibrillation (with pvc) Intervals: LBBB Computer interpretation: Agree with computer - Labs Labs: Laboratory Tests 05/19/20 05/19/20 05/19/20 17:06 17:06 17:06 WBC 6.8 RBC 4.57 L Hgb 14.1 Hct 42.8 MCV 93.7 MCH 30.9 MCHC 32.9 RDW 15.9 H Plt Count 143 MPV 9.2 Neut # (Auto) 4.6 Lymph # (Auto) 1.2 L [place] # (Auto) 0.8 Eos # (Auto) 0.2 Baso # (Auto) 0.1 Absolute Nucleated RBC 0.00 Nucleated RBC % 0.0 PT 13.2 H INR 1.2 Sodium 140 Potassium 4.3 Chloride 103 Carbon Dioxide 28 Anion Gap 9.0 BUN 31 H Creatinine 1.5 H Estimated GFR (MDRD) 45 L Glucose 84 Calcium 9.2 Magnesium 2.0 Total Bilirubin 0.9 AST 28 ALT 21 Alkaline Phosphatase 114 Troponin I High Sens Total Protein 6.7 Albumin 3.3 Globulin 3.4 Albumin/Globulin Ratio 1.0 05/19/20 17:06 WBC RBC Hgb Hct MCV MCH MCHC RDW Plt Count MPV Neut # (Auto) Lymph # (Auto) [place] # (Auto) Eos # (Auto) Baso # (Auto) Absolute Nucleated RBC Nucleated RBC % PT INR Sodium Potassium Chloride Carbon Dioxide Anion Gap BUN Creatinine Estimated GFR (MDRD) Glucose Calcium Magnesium Total Bilirubin AST ALT Alkaline Phosphatase Troponin I High Sens 18.1 Total Protein Albumin Globulin Albumin/Globulin Ratio PD MEDICAL DECISION MAKING - ED course ED course: 85-year-old gentleman with atrial fibrillation presents with known pneumonia right lower lobe on antibiotic was referred here by PCP, sounds like yesterday during the walk test developed significant tachycardia. Here today his labs look good. His EKG showed A. fib without ischemic findings. We walked him up and down the hallway without significant desaturations or tachycardia. He was eager to go home. Departure - Departure Disposition: 01 Home, Self Care Clinical Impression: Pneumonia Qualifiers: Pneumonia type: due to unspecified organism Laterality: right Lung location: lower lobe of lung Qualified Code(s): J18.9 - Pneumonia, unspecified organism Atrial fibrillation Qualifiers: Atrial fibrillation type: unspecified Qualified Code(s): I48.91 - Unspecified atrial fibrillation Condition: Good Record reviewed to determine appropriate education?: Yes Instructions: Atrial Fibrillation Dc, ED Pneumonia Adult Comments: Continue the antibiotics prescribed to you yesterday. Return for new or worsening symptoms. Follow Dr. Perez's plan for following up with pulmonology as well as cardiology. Continue current medications.
[2020-05-19 17:17] LABS: BASOPHILS # (AUTO) 0.1 10^3/uL (0.0-0.1); BASOPHILS % (AUTO) 0.7 %; EOSINOPHILS # (AUTO) 0.2 10^3/uL (0.0-0.7); EOSINOPHILS % (AUTO) 2.9 %; HGB - HEMOGLOBIN 14.1 g/dL (14.0-18.0); LYMPHOCYTES # (AUTO) 1.2 10^3/uL (1.5-3.5); LYMPHOCYTES % (AUTO) 17.5 %; MEAN CORPUSCULAR HEMOGLOBIN 30.9 pg (27.0-31.0); MEAN CORPUSCULAR HGB CONC 32.9 g/dL (32.0-36.0); MEAN CORPUSCULAR VOLUME 93.7 fL (80.0-94.0); MEAN PLATELET VOLUME 9.2 fL (7.4-11.4); MONOCYTES # (AUTO) 0.8 10^3/uL (0.0-1.0); MONOCYTES % (AUTO) 11.2 %; NEUTROPHILS # (AUTO) 4.6 10^3/uL (1.5-6.6); NEUTROPHILS % (AUTO) 67.4 %; PLT - PLATELET COUNT 143 10^3/uL (130-450); RED BLOOD COUNT 4.57 10^6/uL (4.70-6.10); RED CELL DISTRIBUTION WIDTH 15.9 % (12.0-15.0); WHITE BLOOD COUNT 6.8 x10^3/uL (4.8-10.8)
[2020-05-19 17:25] LABS: INR 1.2 (0.8-1.2); PT - PROTHROMBIN TIME 13.2 secs (9.9-12.6)
[2020-05-19 17:29] LABS: ALBUMIN 3.3 g/dL (3.2-5.5); BILIRUBIN,TOTAL 0.9 mg/dL (0.2-1.0); CALCIUM 9.2 mg/dL (8.5-10.3); CREATININE 1.5 mg/dL (0.6-1.2); TOTAL PROTEIN 6.7 g/dL (6.7-8.2)
[2020-05-19 18:00] VITALS: BP 183/76
== END 2020-05-19 18:21 | disposition home or self-care (01) ==
LOC: ED 16:21
DX: I48.91 Unspecified atrial fibrillation (principal); I49.3 Ventricular premature depolarization; I44.7 Left bundle-branch block, unspecified; J18.9 Pneumonia, unspecified organism; I25.10 Atherosclerotic heart disease of native coronary artery without angina pectoris; Z95.1 Presence of aortocoronary bypass graft; I10 Essential (primary) hypertension
CPT/HCPCS: 36415; 80053; 83735; 84484; 85025; 85610; 93005; 99283; 99284

== ENCOUNTER 2021-01-25 15:17 | Outpatient (CLI) | payer MEDICARE, OTHER ==
[2021-01-25 20:08] LABS: BASOPHILS % (AUTO) 0.7 %; EOSINOPHILS # (AUTO) 0.1 10^3/uL (0.0-0.7); HCT - HEMATOCRIT 41.9 % (42.0-52.0); HGB - HEMOGLOBIN 13.9 g/dL (14.0-18.0); LYMPHOCYTES # (AUTO) 1.1 10^3/uL (1.5-3.5); LYMPHOCYTES % (AUTO) 17.6 %; MEAN CORPUSCULAR HEMOGLOBIN 31.7 pg (27.0-31.0); MEAN CORPUSCULAR HGB CONC 33.2 g/dL (32.0-36.0); MEAN CORPUSCULAR VOLUME 95.7 fL (80.0-94.0); MEAN PLATELET VOLUME 10.6 fL (7.4-11.4); MONOCYTES # (AUTO) 0.5 10^3/uL (0.0-1.0); MONOCYTES % (AUTO) 7.5 %; NEUTROPHILS # (AUTO) 4.5 10^3/uL (1.5-6.6); NEUTROPHILS % (AUTO) 72.9 %; PLT - PLATELET COUNT 151 10^3/uL (130-450); RED BLOOD COUNT 4.38 10^6/uL (4.70-6.10); WHITE BLOOD COUNT 6.1 x10^3/uL (4.8-10.8)
[2021-01-25 20:21] LABS: ALBUMIN/GLOBULIN RATIO 1.1 (1.0-2.2); BILIRUBIN,TOTAL 1.2 mg/dL (0.2-1.0); CALCIUM 9.4 mg/dL (8.5-10.3); CREATININE 1.9 mg/dL (0.6-1.2); POTASSIUM 4.1 mmol/L (3.5-5.0); TOTAL PROTEIN 7.7 g/dL (6.7-8.2)
[2021-01-25 20:34] LABS: THYROID STIMULATING HORMONE 2.41 uIU/mL (0.34-5.60)
[2021-01-25 21:24] LABS: FOLATE > 49.60 ng/mL (5.90 - >24.8)
== END 2021-01-25 15:18 | disposition home or self-care (01) ==
LOC: LAB.S 15:17
PROVIDERS: ATTEND Internal Medicine
DX: R41.3 Other amnesia (principal)
CPT/HCPCS: 36415; 80053; 82607; 82746; 84443; 85025

== ENCOUNTER 2021-04-08 16:29 | Outpatient (CLI) | payer MEDICARE, OTHER | END 2021-04-08 16:30 | disposition critical access hospital (66) | LOC: EMS 16:29 | DX: R11.10 Vomiting, unspecified (principal); R19.7 Diarrhea, unspecified; R55 Syncope and collapse | CPT/HCPCS: A0425; A0429 ==

== ENCOUNTER 2021-04-08 17:16 | Emergency (ER) | payer MEDICARE, OTHER ==
[2021-04-08 18:20] LABS: BASOPHILS % (AUTO) 0.5 %; EOSINOPHILS # (AUTO) 0.1 10^3/uL (0.0-0.7); HCT - HEMATOCRIT 42.3 % (42.0-52.0); LYMPHOCYTES # (AUTO) 0.9 10^3/uL (1.5-3.5); LYMPHOCYTES % (AUTO) 10.5 %; MEAN CORPUSCULAR HEMOGLOBIN 32.2 pg (27.0-31.0); MEAN CORPUSCULAR HGB CONC 33.1 g/dL (32.0-36.0); MEAN CORPUSCULAR VOLUME 97.2 fL (80.0-94.0); MEAN PLATELET VOLUME 9.9 fL (7.4-11.4); MONOCYTES # (AUTO) 0.7 10^3/uL (0.0-1.0); MONOCYTES % (AUTO) 8.8 %; NEUTROPHILS # (AUTO) 6.4 10^3/uL (1.5-6.6); PLT - PLATELET COUNT 130 10^3/uL (130-450); RED BLOOD COUNT 4.35 10^6/uL (4.70-6.10); RED CELL DISTRIBUTION WIDTH 14.1 % (12.0-15.0); WHITE BLOOD COUNT 8.1 x10^3/uL (4.8-10.8)
[2021-04-08 18:31] LABS: ALBUMIN 3.8 g/dL (3.2-5.5); ALBUMIN/GLOBULIN RATIO 0.9 (1.0-2.2); CALCIUM 9.5 mg/dL (8.5-10.3); CREATININE 1.9 mg/dL (0.6-1.2); POTASSIUM 4.8 mmol/L (3.5-5.0); TOTAL PROTEIN 7.9 g/dL (6.7-8.2)
--- NOTE | 2021-04-08 18:47 | XRAY Report ---
PROCEDURE: Chest 1 View X-Ray INDICATIONS: Chest Pain TECHNIQUE: One view of the chest was acquired. COMPARISON: CXR 05/18/2020. FINDINGS: Surgical changes and devices: Is made of sternotomy and CABG.. Lungs and pleura: No significant pleural effusions or pneumothorax. Comment perihilar markings bilat erally. This is increased compared to the prior exam. Mediastinum: Mediastinal contours appear unchanged. Heart size is prominent. Bones and chest wall: No suspicious bony lesions. Overlying soft tissues appear unremarkable. IMPRESSION: Mild to moderate fluid overload/CHF. Reviewed by: Geovanni Anderson MD on 04/08/2021 6:46 PM PST Approved by: Geovanni Anderson MD on 04/08/2021 6:46 PM PST Station ID: [id number]
--- NOTE | 2021-04-08 19:08 | ED Physician Documentation ---
History of Present Illness - Stated complaint Stated Complaint: SYNCOPE - Chief complaint Chief Complaint: Neuro - History obtained from History obtained from: Patient, Family - History of Present Illness Timing: Today Pain level max: 0 Pain level now: 0 - Additonal information Additional information: Patient is a 86-year-old male who presents to the emergency department stating that he felt lightheaded and dizzy today like the room was spinning. He felt nauseated as well. He states that his pulled out a chair for him to sit on and he sat down. Reportedly he had a syncopal event but patient denies this. Patient denies any chest pain, shortness of breath. He states he feels normal now. history of CABG and multiple stents. Review of Systems Ten Systems: 10 systems reviewed and negative Constitutional: denies: Fever, Chills Ears: denies: Ear pain Nose: denies: Rhinorrhea / runny nose, Congestion Throat: denies: Sore throat Cardiac: denies: Chest pain / pressure Respiratory: denies: Dyspnea, Cough GI: denies: Vomiting, Diarrhea Skin: denies: Rash Musculoskeletal: denies: Neck pain, Back pain Neurologic: denies: Headache PD PAST MEDICAL HISTORY - Past Medical History Past Medical History: Yes Cardiovascular: Hypertension, High cholesterol, [place] Respiratory: Pneumonia, CPAP use GI: GI bleed : Incontinence HEENT: Chronic hearing loss Musculoskeletal: Gout - Past Surgical History Past Surgical History: Yes General: Bowel surgery Cardiovascular: CABG - Present Medications Home Medications: Ambulatory Orders Medication Instructions Recorded Confirmed Ascorbic Acid [Vitamin C] 500 mg PO DAILY 10/03/14 08/18/17 Citalopram [CeleXA] 20 mg PO DAILY 10/03/14 08/18/17 Ferrous Sulfate, Dried [Iron] 65 mg PO TID 10/03/14 08/18/17 Finasteride 5 mg PO DAILY 10/03/14 08/18/17 Furosemide [Lasix] 40 mg PO DAILY 10/03/14 08/18/17 Metoprolol Succinate 25 mg PO DAILY 10/03/14 08/18/17 [place]-3 Fatty Acids/Fish Oil [Fish 1,000 mg PO DAILY 10/03/14 08/18/17 Oil 1,000 mg Capsule] Simvastatin 40 mg PO DAILY 10/03/14 08/18/17 Tamsulosin HCl [Flomax] 0.4 mg PO DAILY 10/03/14 08/18/17 Glucosamine HCl/Chondroitin [place] 2 each PO DAILY 08/18/17 08/18/17 [Endur-Flex Sr Tablet] Multivitamin [Multivitamins] 1 each PO DAILY 08/18/17 08/18/17 Oxybutynin Chloride [Ditropan Xl] 10 mg PO DAILY 08/18/17 08/18/17 Potassium Chloride 10 meq PO DAILY 08/18/17 08/18/17 Turmeric Root Extract [Turmeric] 500 mg PO DAILY 08/18/17 08/18/17 Sod Polystyrene Sulf. [Kayexalate] 15 gm PO BID #1 bottle 11/28/17 - Allergies Allergies/Adverse Reactions: Allergies Allergy/AdvReac Type Severity Reaction Status Date / Time lisinopril Allergy Unknown Verified 05/19/20 16:36 - Social History Does the pt smoke?: No Smoking Status: Never smoker Does the pt drink ETOH?: Yes Does the pt have substance abuse?: No - Immunizations Immunizations are current?: Yes - POLST Patient has POLST: Yes PD ED PE NORMAL - Vitals Vital signs reviewed: Yes - General General: Alert and oriented X 3, No acute distress - HEENT HEENT: Moist mucous membranes - Neck Neck: Supple, no meningeal sign - Cardiac Cardiac: RRR, Strong equal pulses - Respiratory Respiratory: No respiratory distress, Clear bilaterally - Abdomen Abdomen: Soft, Non tender, Non distended - Derm Derm: Warm and dry - Extremities Extremities: No edema, No calf tenderness / cord - Neuro Neuro: Alert and oriented X 3 - Psych Psych: Normal mood, Normal affect Results - Vitals Vitals: Vital Signs - 24 hr 04/08/21 04/08/21 04/08/21 17:27 18:41 19:00 Temperature 37.0 C 36.5 C Heart Rate 60 77 Respiratory 22 24 22 Rate Blood Pressure 169/81 H 126/77 163/101 H O2 Saturation 98 97 98 04/08/21 04/08/21 04/08/21 20:00 20:30 21:14 Temperature Heart Rate 69 80 70 Respiratory 21 19 23 Rate Blood Pressure 166/81 H 140/96 H 163/94 H O2 Saturation 96 96 95 04/08/21 21:34 Temperature Heart Rate 71 Respiratory 18 Rate Blood Pressure 165/101 H O2 Saturation 98 Oxygen O2 Source Room air - EKG (time done) 1832 Rate: Rate (enter#) (77) Rhythm: Atrial fibrillation [place]: Normal QRS: Normal Ischemia: Normal ST segments - Labs Labs: Laboratory Tests 04/08/21 04/08/21 04/08/21 18:13 18:13 18:13 WBC 8.1 RBC 4.35 L Hgb 14.0 Hct 42.3 MCV 97.2 H MCH 32.2 H MCHC 33.1 RDW 14.1 Plt Count 130 MPV 9.9 Neut # (Auto) 6.4 Lymph # (Auto) 0.9 L [place] # (Auto) 0.7 Eos # (Auto) 0.1 Baso # (Auto) 0.0 Absolute Nucleated RBC 0.00 Nucleated RBC % 0.0 PT INR APTT Sodium 140 Potassium 4.8 Chloride 103 Carbon Dioxide 25 Anion Gap 12.0 BUN 31 H Creatinine 1.9 H Estimated GFR (MDRD) 34 L Glucose 97 Calcium 9.5 Total Bilirubin 1.0 AST 24 ALT 23 Alkaline Phosphatase 135 H Troponin I High Sens 95.4 H* B-Natriuretic Peptide Total Protein 7.9 Albumin 3.8 Globulin 4.1 Albumin/Globulin Ratio 0.9 L Lipase 41 Urine Color Urine Clarity Urine pH Ur Specific [place] Urine Protein Urine Glucose (UA) Urine Ketones Urine Occult Blood Urine Nitrite Urine Bilirubin Urine Urobilinogen Ur Leukocyte Esterase Urine RBC Urine WBC Ur Squamous Epith Cells Urine Bacteria Urine Casts Urine Culture Comments Nasal Adenovirus (PCR) Nasal B. parapertussis DNA (PCR) Nasal Coronavir 229E PCR Nasal Coronavir HKU1 PCR Nasal Coronavir NL63 PCR Nasal Coronavir OC43 PCR Nasal Enterovir/Rhinovir PCR Nasal Influenza B PCR Nasal Influenza A PCR Nasal Parainfluen 1 PCR Nasal Parainfluen 2 PCR Nasal Parainfluen 3 PCR Nasal Parainfluen 4 PCR Nasal RSV (PCR) Nasal B.pertussis DNA PCR Nasal C.pneumoniae (PCR) Riki Human Metapneumo PCR Nasal M.pneumoniae (PCR) Nasal SARS-CoV-2 (PCR) 04/08/21 04/08/21 04/08/21 18:50 20:00 20:00 WBC RBC Hgb Hct MCV MCH MCHC RDW Plt Count MPV Neut # (Auto) Lymph # (Auto) [place] # (Auto) Eos # (Auto) Baso # (Auto) Absolute Nucleated RBC Nucleated RBC % PT INR APTT Sodium Potassium Chloride Carbon Dioxide Anion Gap BUN Creatinine Estimated GFR (MDRD) Glucose Calcium Total Bilirubin AST ALT Alkaline Phosphatase Troponin I High Sens 141.5 H* B-Natriuretic Peptide 432 H Total Protein Albumin Globulin Albumin/Globulin Ratio Lipase Urine Color YELLOW Urine Clarity CLEAR Urine pH 5.5 Ur Specific [place] 1.020 Urine Protein TRACE Urine Glucose (UA) NEGATIVE Urine Ketones NEGATIVE Urine Occult Blood NEGATIVE Urine Nitrite NEGATIVE Urine Bilirubin NEGATIVE Urine Urobilinogen 0.2 (NORMAL) Ur Leukocyte Esterase NEGATIVE Urine RBC None Seen Urine WBC 0-3 Ur Squamous Epith Cells NONE SEEN Urine Bacteria None Seen Urine Casts 0-2 Hyaline Casts Urine Culture Comments NOT INDICATED Nasal Adenovirus (PCR) Nasal B. parapertussis DNA (PCR) Nasal Coronavir 229E PCR Nasal Coronavir HKU1 PCR Nasal Coronavir NL63 PCR Nasal Coronavir OC43 PCR Nasal Enterovir/Rhinovir PCR Nasal Influenza B PCR Nasal Influenza A PCR Nasal Parainfluen 1 PCR Nasal Parainfluen 2 PCR Nasal Parainfluen 3 PCR Nasal Parainfluen 4 PCR Nasal RSV (PCR) Nasal B.pertussis DNA PCR Nasal C.pneumoniae (PCR) Riki Human Metapneumo PCR Nasal M.pneumoniae (PCR) Nasal SARS-CoV-2 (PCR) 04/08/21 04/08/21 21:14 21:30 WBC RBC Hgb Hct MCV MCH MCHC RDW Plt Count MPV Neut # (Auto) Lymph # (Auto) [place] # (Auto) Eos # (Auto) Baso # (Auto) Absolute Nucleated RBC Nucleated RBC % PT 14.0 H INR 1.3 H APTT 32.3 Sodium Potassium Chloride Carbon Dioxide Anion Gap BUN Creatinine Estimated GFR (MDRD) Glucose Calcium Total Bilirubin AST ALT Alkaline Phosphatase Troponin I High Sens B-Natriuretic Peptide Total Protein Albumin Globulin Albumin/Globulin Ratio Lipase Urine Color Urine Clarity Urine pH Ur Specific [place] Urine Protein Urine Glucose (UA) Urine Ketones Urine Occult Blood Urine Nitrite Urine Bilirubin Urine Urobilinogen Ur Leukocyte Esterase Urine RBC Urine WBC Ur Squamous Epith Cells Urine Bacteria Urine Casts Urine Culture Comments Nasal Adenovirus (PCR) NOT DETECTED Nasal B. parapertussis DNA (PCR) NOT DETECTED Nasal Coronavir 229E PCR NOT DETECTED Nasal Coronavir HKU1 PCR NOT DETECTED Nasal Coronavir NL63 PCR NOT DETECTED Nasal Coronavir OC43 PCR NOT DETECTED Nasal Enterovir/Rhinovir PCR NOT DETECTED Nasal Influenza B PCR NOT DETECTED Nasal Influenza A PCR NOT DETECTED Nasal Parainfluen 1 PCR NOT DETECTED Nasal Parainfluen 2 PCR NOT DETECTED Nasal Parainfluen 3 PCR NOT DETECTED Nasal Parainfluen 4 PCR NOT DETECTED Nasal RSV (PCR) NOT DETECTED Nasal B.pertussis DNA PCR NOT DETECTED Nasal C.pneumoniae (PCR) NOT DETECTED Riki Human Metapneumo PCR NOT DETECTED Nasal M.pneumoniae (PCR) NOT DETECTED Nasal SARS-CoV-2 (PCR) NOT DETECTED - Rads (name of study) cxr Radiology: Final report received, EMP read contemporaneously, See rad report (Mild to moderate fluid overload/CHF. ) PD MEDICAL DECISION MAKING - ED course Complexity details: reviewed results, re-evaluated patient, considered differential, d/w patient, d/w loan consultant ED course: 86-year-old male with a NSTEMI. Started on a heparin drip and given aspirin. Asymptomatic here. Long history of cardiac disease including CABG and multiple stents. No beds are available currently in the region. He is on several waiting list. I did discuss the case with Anisha, the transfer center RN at the [facility], she will have a paper mill manager call back and we will continue looking for a bed placement. Patient signed out to Dr. Galvin for further care. This document was made in part using voice recognition software. While efforts are made to proofread this document, sound alike and grammatical errors may occur. Departure - Departure Disposition: 02 Transfer Acute Care Hosp Clinical Impression: NSTEMI (non-ST elevated myocardial infarction) Pulmonary edema Qualifiers: Chronicity: acute Qualified Code(s): J81.0 - Acute pulmonary edema Congestive heart failure Qualifiers: Heart failure type: unspecified Heart failure chronicity: acute on chronic Qualified Code(s): I50.9 - Heart failure, unspecified Condition: Stable
[2021-04-08 19:09] LABS: BILIRUBIN,URINE NEGATIVE (NEGATIVE); GLUCOSE, URINE (UA) NEGATIVE (NEGATIVE); KETONES,URINE (UA) NEGATIVE (NEGATIVE); LEUKOCYTE ESTERASE, URINE NEGATIVE (NEGATIVE); NITRITE,URINE NEGATIVE (NEGATIVE); OCCULT BLOOD,URINE NEGATIVE (NEGATIVE); PH,URINE 5.5 PH (5.0-7.5); PROTEIN,URINE TRACE mg/dL (NEGATIVE); UROBILINOGEN,URINE 0.2 (NORMAL) E.U./dL (NORMAL)
[2021-04-08 19:16] LABS: CLARITY,URINE CLEAR (CLEAR)
[2021-04-08 19:34] LABS: BACTERIA,URINE None Seen /HPF (None Seen); RBC,URINE None Seen /HPF (0-5); SQUAMOUS EPITHELIAL CELL,UR NONE SEEN (<= Few); WBC,URINE 0-3 /HPF (0-3)
[2021-04-08] MEDS ORDERED: ASPIRIN CHEW 81 MG TABLET PO STA (20:51)
[2021-04-08] MEDS: HEPARIN 25000UNITS/500ML (D5W) 25,000 UNIT/500 ML BAG IV SCH (21:08)
[2021-04-08 21:25] LABS: INR 1.3 (0.8-1.2)
[2021-04-08 21:32] LABS: PARTIAL THROMBOPLASTIN TIME 32.3 secs (24.9-33.3)
[2021-04-08 22:26] LABS: B. PARAPERTUSSIS- RESP PCR PAN NOT DETECTED; B. PERTUSSIS- RESP PCR PANEL NOT DETECTED; C. PNEUMONIAE- RESP PCR PANEL NOT DETECTED; CORONAVIRUS 229E-RESP PCR NOT DETECTED; CORONAVIRUS HKU1-RESP PCR NOT DETECTED; CORONAVIRUS NL63-RESP PCR NOT DETECTED; CORONAVIRUS OC43-RESP PCR NOT DETECTED; HUMAN METAPNEUMOVIRUS NOT DETECTED; INFLUENZA A- RESP PCR PANEL NOT DETECTED; INFLUENZA B - RESP PCR PANEL NOT DETECTED; M. PNEUMONIAE- RESP PCR PANEL NOT DETECTED; PARAINFLUENZA VIRUS 1 NOT DETECTED; PARAINFLUENZA VIRUS 2 NOT DETECTED; PARAINFLUENZA VIRUS 3 NOT DETECTED; PARAINFLUENZA VIRUS 4 NOT DETECTED; RHINOVIRUS/ENTEROVIRUS NOT DETECTED; RSV- RESP PCR PANEL NOT DETECTED; SARS-CoV-2 -RESP PCR PANEL NOT DETECTED
[2021-04-08] MEDS ORDERED: FUROSEMIDE 40 MG/4 ML VIAL IVP STA (22:34)
[2021-04-09] MEDS ORDERED: FUROSEMIDE 40 MG/4 ML VIAL IVP STA (13:33)
[2021-04-09] MEDS: HEPARIN 25000UNITS/500ML (D5W) 25,000 UNIT/500 ML BAG IV SCH (18:00)
--- NOTE | 2021-04-09 18:02 | ED Physician Documentation ---
ED Addendum - Addendum Addendum: 04/09/21 17:58The patient had remained stable through the day. He has remained on the heparin drip. He did have an echocardiogram this morning which showed an enlarged ventricles consistent with still likely fluid overload. There was no focal or asymmetric wall activity. Ejection fraction approximately 50%. He was given a repeat dose of Lasix today as well. The patient did not have any chest pain during the day. We contacted several hospitals to see on their bed status. Subsequently scheduled hospital was able to have a bed available. I talked with Dr. Soria the hourly team members on-call who says he would consult on the patient and referred to the hospitalist service. I talked with Dr. Chavez who is on as the hospitalist. He did ask for the echo report which I did not have in writing at the time I talked to him but subsequently I did update him when the official report became available. He talked with Dr. Soria and concurred with excepting the patient. The patient did have a D-dimer done as well which was elevated above our lab normal range but if age-adjusted would actually be within normal given his age of 86. He is already on heparin and has a somewhat elevated creatinine of 1.9. At this point I decided not to do a angio for the contrast load concern but keeping in reserve in case cardiology wants to do a heart cath. He is being treated with a heparin drip for potential of clots anyway. The patient is being transferred by ground ALS ambulance in stable condition. Disposition: The patient is transferred to acute care hospital in stable condition. Diagnoses: 1. Dyspnea 2. Acute syncopal episode 3. History of coronary disease with bypass surgery. 4. Elevated troponin consistent with myocardial injury acutely 5. Chronic renal insufficiency
[2021-04-09 18:04] VITALS: BP 162/85
== END 2021-04-09 18:32 | disposition short-term general hospital (02) ==
LOC: EDUNIT# → ED 17:16
DX: I21.4 Non-ST elevation (NSTEMI) myocardial infarction (principal); I13.0 Hypertensive heart and chronic kidney disease with heart failure and stage 1 through stage 4 chronic kidney disease, or unspecified chronic kidney disease; I50.1 Left ventricular failure, unspecified; N18.9 Chronic kidney disease, unspecified; R55 Syncope and collapse; I48.91 Unspecified atrial fibrillation; I25.10 Atherosclerotic heart disease of native coronary artery without angina pectoris; Z95.5 Presence of coronary angioplasty implant and graft; Z95.1 Presence of aortocoronary bypass graft; Z20.822 Contact with and (suspected) exposure to COVID-19
CPT/HCPCS: 36415; 71045; 80053; 81001; 83690; 83880; 84484; 85025; 85379; 85610; 85730; 87631; 93005; 93306; 96365; 96366; 96375; 96376; 99285; A9270; 0202U; 87086

== ENCOUNTER 2021-04-09 18:25 | Outpatient (CLI) | payer MEDICARE, OTHER | END 2021-04-09 18:26 | disposition short-term general hospital (02) | LOC: EMS 18:25 | PROVIDERS: ATTEND Emergency Medicine | DX: I21.4 Non-ST elevation (NSTEMI) myocardial infarction (principal) | CPT/HCPCS: A0425; A0428 ==

== ENCOUNTER 2021-05-11 12:56 | Outpatient (CLI) | payer MEDICARE, OTHER | END 2021-05-11 12:57 | disposition short-term general hospital (02) | LOC: EMS 12:56 | DX: R42 Dizziness and giddiness (principal); R07.89 Other chest pain; R11.2 Nausea with vomiting, unspecified; I25.2 Old myocardial infarction | CPT/HCPCS: A0425; A0427 ==

== ENCOUNTER 2021-06-29 12:47 | Outpatient (CLI) | payer MEDICARE, OTHER ==
[2021-06-29 15:08] LABS: ALBUMIN 3.7 g/dL (3.2-5.5); CALCIUM 9.2 mg/dL (8.5-10.3); CREATININE 1.8 mg/dL (0.6-1.2); PHOSPHORUS 4.2 mg/dL (2.5-4.6); POTASSIUM 3.9 mmol/L (3.5-5.0)
== END 2021-06-29 12:48 | disposition home or self-care (01) ==
LOC: LAB.S 12:47
PROVIDERS: ATTEND Internal Medicine Cardiovascular Disease
DX: R55 Syncope and collapse (principal); I11.0 Hypertensive heart disease with heart failure; I50.32 Chronic diastolic (congestive) heart failure; I50.22 Chronic systolic (congestive) heart failure; I25.10 Atherosclerotic heart disease of native coronary artery without angina pectoris; E78.5 Hyperlipidemia, unspecified
CPT/HCPCS: 36415; 80048; 80069

== ENCOUNTER 2021-07-15 13:44 | Outpatient (CLI) | payer MEDICARE, OTHER ==
--- NOTE | 2021-07-15 16:54 | XRAY Report ---
PROCEDURE: Knee 2 View RT INDICATIONS: OSTEOARTHRITIS OF RIGHT KNEE TECHNIQUE: 2 views of the right knee(s) were acquired. COMPARISON: None. FINDINGS: Bones: No fractures or dislocations. No suspicious bony lesions. Mild tricompartment periarticular osteophyte formation. Soft tissues: No joint effusion. No suspicious soft tissue calcifications. IMPRESSION: Osteoarthritis. No acute fracture. No osseous lesion. If symptoms and/or clinical suspici on for pathology continue, further assessment with repeat plain films, or advanced imaging (e.g., CT, MRI, or bone scan) is recommended for further assessment. Reviewed by: Hasmukh Shrestha MD on 07/15/2021 4:53 PM PDT Approved by: Hasmukh Shrestha MD on 07/15/2021 4:53 PM PDT Station ID: [id number]
== END 2021-07-15 13:45 | disposition home or self-care (01) ==
LOC: DI.S 13:44
PROVIDERS: ATTEND Internal Medicine
DX: M17.11 Unilateral primary osteoarthritis, right knee (principal)

== ENCOUNTER 2021-07-22 11:38 | Outpatient (CLI) | payer MEDICARE, OTHER | END 2021-07-22 11:39 | disposition critical access hospital (66) | LOC: EMS 11:38 | DX: R42 Dizziness and giddiness (principal) | CPT/HCPCS: A0425; A0429 ==

== ENCOUNTER 2021-07-22 12:21 | Emergency (ER) | payer MEDICARE, OTHER ==
--- NOTE | 2021-07-22 12:36 | ED Physician Documentation ---
PD HPI Fall - Stated complaint Stated Complaint: FALL - History obtained from History obtained from: Patient - History of Present Illness Mechanism of injury: Lost balance (he says he has had pain right knee for over a week. He had prior Rx for prednisone and took 60 mg. few days ago without improvement. Has had balance problems due to knee pain with walking. He says he fell last night against wall due to knee giving out. SLid to ground. Has also had chronic vertigo.) Fall distance: Standing position Where injury occurred: Home Timing - onset: Last night Injury(ies) location: Other (already with knee pain prior to fall. Not worse.). No: Head, Neck, Chest, Abdomen Associated symptoms: Other (vertigo with quick head movement ongoing chronic.). No: LOC, AMS, Weakness, Paresthesias Worsens with: Movement (of right knee), Palpation (anteriorly) Contributing factors: No: Anticoagulated, Intoxicated Similar symptoms before: Diagnosis (history of gout in the past and steroids usually help.) Recently seen: Not recently seen Review of Systems Psychiatric: reports: Hallucinations (he thought he had some visual hallucinations last night of objects in wrong places but then were in right place when looked again.) PD PAST MEDICAL HISTORY - Past Medical History Cardiovascular: Hypertension, High cholesterol, [place] Respiratory: Pneumonia, CPAP use GI: GI bleed : Incontinence HEENT: Chronic hearing loss Musculoskeletal: Gout - Past Surgical History Past Surgical History: Yes General: Bowel surgery Cardiovascular: CABG - Present Medications Home Medications: Ambulatory Orders Medication Instructions Recorded Confirmed Citalopram [CeleXA] 40 mg PO DAILY 10/03/14 04/08/21 Ferrous Sulfate, Dried [Iron] 65 mg PO TID 10/03/14 04/08/21 Finasteride 5 mg PO DAILY 10/03/14 04/08/21 Metoprolol Succinate 50 mg PO DAILY 10/03/14 04/08/21 [place]-3 Fatty Acids/Fish Oil [Fish 1,000 mg PO DAILY 10/03/14 04/08/21 Oil 1,000 mg Capsule] Simvastatin 40 mg PO DAILY 10/03/14 04/08/21 Tamsulosin HCl [Flomax] 0.4 mg PO DAILY 10/03/14 04/08/21 Glucosamine HCl/Chondroitin [place] 2 each PO DAILY 08/18/17 04/08/21 [Endur-Flex Sr Tablet] Multivitamin [Multivitamins] 1 each PO DAILY 08/18/17 04/08/21 Aspirin [[place] Aspirin] 81 mg PO DAILY 04/08/21 04/08/21 Melatonin 3 mg PO DAILY PM 04/08/21 04/08/21 Torsemide 10 mg PO DAILY 04/08/21 04/08/21 Zolpidem Tartrate [Ambien] 10 mg PO DAILY 04/08/21 04/08/21 allopurinoL [Allopurinol] 100 mg PO DAILY 04/08/21 04/08/21 buPROPion HCL [Bupropion Xl] 150 mg PO DAILY 04/08/21 04/08/21 Meclizine [Antivert] 12.5 mg PO Q6H PRN #30 tablet 07/22/21 dexAMETHasone [Decadron] 4 mg PO DAILY #6 tablet 07/22/21 - Allergies Allergies/Adverse Reactions: Allergies Allergy/AdvReac Type Severity Reaction Status Date / Time lisinopril Allergy Unknown Verified 07/22/21 12:29 - Social History Does the pt smoke?: No Smoking Status: Never smoker Does the pt drink ETOH?: Yes Does the pt have substance abuse?: No - Immunizations Immunizations are current?: Yes - POLST Patient has POLST: Yes PD ED PE NORMAL - Vitals Vital signs reviewed: Yes - General General: Alert and oriented X 3, No acute distress, Well developed/nourished - HEENT HEENT: Atraumatic - Neck Neck: Supple, no meningeal sign, No bony TTP, No bruit - Cardiac Cardiac: RRR, No murmur - Respiratory Respiratory: Clear bilaterally - Derm Derm: Normal color, Warm and dry - Extremities Extremities: Other (right knee is markedly tender anteriorly with redness over patellar area. No skin sores. No effusion. LAteral and posterior knee not tender. NO gross laxity on stress testing. ) - Neuro Neuro: Alert and oriented X 3, No motor deficit, No sensory deficit, Normal speech Results - Vitals Vitals: Vital Signs - 24 hr 07/22/21 07/22/21 07/22/21 12:30 12:37 14:37 Temperature 36.6 C 36.6 C Heart Rate 77 77 72 Respiratory 18 18 16 Rate Blood Pressure 155/76 H 155/76 H 161/65 H O2 Saturation 94 94 96 07/22/21 15:07 Temperature Heart Rate 72 Respiratory 16 Rate Blood Pressure 185/91 H O2 Saturation 96 Oxygen O2 Source Room air - Labs Labs: Laboratory Tests 07/22/21 07/22/21 12:45 12:45 WBC 8.1 RBC 3.79 L Hgb 12.0 L Hct 36.1 L MCV 95.3 H MCH 31.7 H MCHC 33.2 RDW 14.8 Plt Count 213 MPV 9.2 Neut # (Auto) 6.3 Lymph # (Auto) 1.0 L Clark # (Auto) 0.6 Eos # (Auto) 0.1 Baso # (Auto) 0.0 Absolute Nucleated RBC 0.00 Nucleated RBC % 0.0 Sodium 137 Potassium 4.2 Chloride 103 Carbon Dioxide 22 Anion Gap 12.0 BUN 21 H Creatinine 1.5 H Estimated GFR (MDRD) 45 L Glucose 93 Calcium 9.3 Magnesium 2.1 Total Bilirubin 1.0 AST 22 ALT 25 Alkaline Phosphatase 132 H Total Protein 7.5 Albumin 3.3 Globulin 4.2 Albumin/Globulin Ratio 0.8 L Lipase 33 PD MEDICAL DECISION MAKING - ED course Complexity details: reviewed results, re-evaluated patient (Recent x-ray of the knee showed arthritis. His exam is most consistent with gout or bursitis. We can try different anti-inflammatory and regular Tylenol. He otherwise appears well. his visual misperceptions last night might have been the higher prednisone dose he had taken day prior.), considered differential (Had pain in the right knee which caused his leg to give out and fall. needed help from EMS to get him up. Recent pain in the right knee from apparent gout. Medics urged the patient to come in for evaluation. He denies any local pains or injuries aside from the knee.), d/w patient Departure - Departure Disposition: 01 Home, Self Care Clinical Impression: Vertigo Knee pain, acute Qualifiers: Laterality: right Qualified Code(s): M25.561 - Pain in right knee Fall Qualifiers: Encounter type: initial encounter Qualified Code(s): W19.XXXA - Unspecified fall, initial encounter Condition: Stable Record reviewed to determine appropriate education?: Yes Instructions: ED Dizziness UKO, ED Arthritis Gout Follow-Up: Wiliam Perez MD [Primary Care Provider] - Prescriptions: Meclizine [Antivert] 12.5 mg PO Q6H PRN #30 tablet PRN Reason: Vertigo dexAMETHasone [Decadron] 4 mg PO DAILY #6 tablet Comments: Your knee exam is suggestive of gout or bursitis. Your recent x-ray does show some arthritis in the knee but I think that is more reflective of age related changes and not the cause of the pain per se. I would have you try a dexamethasone steroid daily for 6 more days combined with Tylenol regularly 4 times a day and see if that helps better. Given your vertigo and general weakness, I would be reluctant to add any opioid pain medicines. Regarding your dizziness, you could use meclizine every 8 hours or so if needed for the vertigo and see if that helps. I transmitted your prescriptions to [facility] pharmacy in [place]. Discharge Date/Time: 07/22/21 15:07
[2021-07-22] MEDS ORDERED: DEXAMETHASONE 10 MG/ML VIAL IVP STA (12:37)
[2021-07-22] MEDS ORDERED: KETOROLAC 15 MG/ML VIAL IVP STA (12:37)
[2021-07-22] MEDS ORDERED: ACETAMINOPHEN 325 MG TABLET PO STA (12:37)
[2021-07-22] MEDS ORDERED: MECLIZINE 12.5 MG TABLET PO STA (12:38)
[2021-07-22 12:50] LABS: BASOPHILS % (AUTO) 0.5 %; EOSINOPHILS # (AUTO) 0.1 10^3/uL (0.0-0.7); EOSINOPHILS % (AUTO) 1.2 %; HCT - HEMATOCRIT 36.1 % (42.0-52.0); LYMPHOCYTES % (AUTO) 12.9 %; MEAN CORPUSCULAR HEMOGLOBIN 31.7 pg (27.0-31.0); MEAN CORPUSCULAR HGB CONC 33.2 g/dL (32.0-36.0); MEAN CORPUSCULAR VOLUME 95.3 fL (80.0-94.0); MEAN PLATELET VOLUME 9.2 fL (7.4-11.4); MONOCYTES # (AUTO) 0.6 10^3/uL (0.0-1.0); MONOCYTES % (AUTO) 7.7 %; NEUTROPHILS # (AUTO) 6.3 10^3/uL (1.5-6.6); NEUTROPHILS % (AUTO) 77.5 %; PLT - PLATELET COUNT 213 10^3/uL (130-450); RED BLOOD COUNT 3.79 10^6/uL (4.70-6.10); RED CELL DISTRIBUTION WIDTH 14.8 % (12.0-15.0); WHITE BLOOD COUNT 8.1 x10^3/uL (4.8-10.8)
--- OUTSIDE RECORDS SUMMARY | 2021-07-22 13:03 | EXTERNAL MEDICAL SUMMARY RPT | Continuity of Care Document ---
:1935 Author Organization [facility] Address [address] [place] [address] Phone Allergies No information. Encounters No information. Medications No information. Problems date description facility [id number] Unspecified hearing loss, unspecified [facility] ear [id number] Syncope and collapse [facility] [id number] Spinal stenosis, site unspecified [facility] [id number] Sleep apnea, unspecified [facility] [id number] Presence of aortocoronary bypass graft [facility] [id number] Personal history of malignant neoplasm [facility] of bladder [id number] Paroxysmal atrial fibrillation [facility] [id number] Other specified erythematous conditions [facility] [id number] Other specified depressive episodes [facility] [id number] Mild cognitive impairment, so stated [facility] [id number] Hypoxemia [facility] [id number] Hyperlipidemia, unspecified [facility] [id number] Essential (primary) hypertension [facility] [id number] Dizziness and giddiness [facility] [id number] Chronic kidney disease, stage 3 [facility] unspecified [id number] Benign prostatic hyperplasia without [facility] lower urinary tract symptoms [id number] Benign paroxysmal vertigo, unspecified [facility] ear [id number] 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
[2021-07-22 13:10] LABS: ALBUMIN 3.3 g/dL (3.2-5.5); ALBUMIN/GLOBULIN RATIO 0.8 (1.0-2.2); CALCIUM 9.3 mg/dL (8.5-10.3); CREATININE 1.5 mg/dL (0.6-1.2); MAGNESIUM 2.1 mg/dL (1.7-2.8); POTASSIUM 4.2 mmol/L (3.5-5.0); TOTAL PROTEIN 7.5 g/dL (6.7-8.2)
[2021-07-22 15:08] VITALS: BP 185/91
== END 2021-07-22 15:07 | disposition home or self-care (01) ==
LOC: EDUNIT# → ED 12:21
DX: M25.561 Pain in right knee (principal); W19.XXXA Unspecified fall, initial encounter; I10 Essential (primary) hypertension; R42 Dizziness and giddiness
CPT/HCPCS: 36415; 80053; 83690; 83735; 85025; 99283; A9270

== ENCOUNTER 2021-08-31 14:33 | Outpatient (CLI) | payer MEDICARE, OTHER ==
--- NOTE | 2021-08-31 15:09 | SLEEP CARE CONSULTATION ---
Information from patient questionnaire entered by Izabela Rider MA. I have reviewed and concur with the information entered by Izabela Rider MA. This document represents the service I personally performed and the decisions made by , Adina Tai ARNP. History of Present Illness Service Date and Time: 08/31/2021 1433 Reason for Visit: New patient (last seen 2015, on CPAP), Previously diagnosed sleep apnea, sleep apnea on CPAP therapy Accompanied by: Spouse Chief Complaint: reports: Other (Cpap) Usual bedtime: 9 pm Time it takes to fall asleep: 20 minutes Snores at night: Yes (sometimes) Number of times waking at night: none Toss, Turn, or Twitch while sleeping: No Recalls having dreams: No Usually gets out of bed at: 10 am plus Feels refreshed in the morning: No Morning headache: No Sleepy or fatigued during the day: No Ever fallen asleep while driving: No Takes day naps: Yes (sometimes) Dreams during day naps: No Year and Where: [employer], 6 years ago Additional HPI information: SHELIA DASH was previously diagnosed to have extremely severe, 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 - Parasomnia Symptoms Ever been unable to move upon waking from sleep: No Walks in sleep: No Talks in sleep: Yes Ever acted out dreams in sleep: Yes Ever felt weak in the knees when startled or emotional: No Bothered by creepy, crawly, restless sensations in legs: No Problems with memory or concentration: Yes CPAP Compliance Data - Data Reviewed with Patient Average duration of nightly device use: 14 hours 2 minutes Compliance rate %: 96.7 Current pressure setting (cmH2O): 19.0 Average residual AHI: 10.5 Central apnea: 0.4 Obstructive apnea: 0.8 Hypopnea: 9.3 Average large leak: 5 hours 10 minutes Compliance data discussion: He has been using [employer] for his supplies but hasn't need to order for a long time. He needs a new headgear but has a lot of Dreamwear Wisp cushions that go with the fabric frame headgear. He states he wears it religiously. His CPAP stopped working about a month and he is using an old CPAP that he had at home. Subjective Patient concerns: reports: air blowing in eyes, mask leak noise (mask headgear needs replaced). denies: aerophagia, mask discomfort, condensation in mask/hose, nasal congestion, dry mouth, nose, throat, epistaxis, other Observed to snore while using device: No Current pressure setting perceived as: comfortable On therapy, patient: reports: sleeping better, awakening more refreshed, being more awake and alert during the day, more rested overall. denies: drowsiness while driving Initial [place] Sleepiness Scale score: 4 (in 2021) Past Medical History Past Medical History: reports: Hypertension, Congestive Heart Failure, Arthritis, Coronary Heart Disease (has heart stents), Gout, Mood disorder (Depression) Social History The patient's occupation is a RE. Patient is and lives in [place]. Have you smoked in the past 12 months: No Cigarettes per day (20/pack): 10 Years of smokin Quit date: 40 years ago Smoking Pack Years: 2.0 Alcohol use: Yes Alcohol amount and frequency: 1 glass per day Caffeine use: No Family History Family history of sleep disordered breathing: Yes (Daughter) Family Hx Sleep Apnea: Mother: Snoring, Father: Snoring, Sibling: Snoring, Grandparent: Snoring Allergies and Home Medications Drug allergies reviewed: Yes (lisinopril) Home medication list reviewed: Yes Allergy and home medication list: Allergies lisinopril Allergy (Verified 07/22/21 12:29) Unknown Review of Systems Weight loss over past 5 years: 50 lb Cardiovascular: reports: high blood pressure, irregular heart rate or pulse Respiratory: reports: shortness of breath Urinary: reports: incontinence Neurological: reports: gait or balance problems Psychiatric: reports: depression Endocrine: reports: sluggishness, too hot or cold (cold) Musculoskeletal: reports: joint pain, mobility problems Physical Exam Vital signs obtained and entered by: Maggy RIDER CMA [place] Blood Pressure: 132/71 Cuff size: wrist Heart Rate: 72 O2 Saturation: 96 (paper mask) Height: 5 ft 10 in Weight: 220 lb Body Mass Index: 31.5 BMI Classification: Obese Heart: regular rate and rhythm Lungs: clear bilaterally Impression and Plan 1. Obstructive Sleep Apnea-Hypopnea Syndrome, extremely severe, with good treatment compliance and fair apnea control with elevated residual AHI. On CPAP therapy, the patient has better sleep quality and is more rested overall. The patients CPAP is over 5 years old and of reasonable use. Thus, the CPAP will be updated. A DWO prescription will be made. Compliance guidelines for new device and follow up discussed. Patient's apnea severity and rationale for treatment to reduce apnea, improve sleep quality and reduce cardiovascular and cerebrovascular events was reviewed. I also reviewed the benefit of consistent device use of CPAP for hypertension, cardiac disease (CAD, [place], CHF), depression and anxiety. * Continue auto CPAP pressure at 19 cmH2O * Update device * Update supplies as needed * Notify me if snoring with mask or feeling that the pressure is too much or too little * Attempt to lose weight * Call this office if any problems using CPAP * Return for follow up one month after obtaining new device, or sooner if concerns arise Counseling Topics: Spare mask, Weight loss health impact Visit Type: In Office Other Participants: Spouse/Significant Other Time Spent with Patient (minutes): 25 Provider Statement: I spent 100% of the Face to Face Visit with the patient with greater than 50% spent counseling the patient and coordination of care.
[2021-08-31 15:10] VITALS: BP 132/71
== END 2021-08-31 14:34 | disposition home or self-care (01) ==
LOC: SC 14:33
PROVIDERS: ATTEND Nurse Practitioner Family
DX: G47.33 Obstructive sleep apnea (adult) (pediatric) (principal); Z87.891 Personal history of nicotine dependence; E66.9 Obesity, unspecified; Z68.31 Body mass index [BMI] 31.0-31.9, adult
CPT/HCPCS: 99202; G0463; 99212

== ENCOUNTER 2022-11-02 09:03 | Outpatient (CLI) | payer MEDICARE, OTHER | END 2022-11-02 23:59 | disposition EMS.NT | LOC: EMS 09:03 | DX: R06.02 Shortness of breath (principal) ==

== ENCOUNTER 2023-03-23 13:05 | Outpatient (CLI) | payer MEDICARE, OTHER ==
[2023-03-23 19:42] LABS: BASOPHILS % (AUTO) 0.5 %; EOSINOPHILS # (AUTO) 0.1 10^3/uL (0.0-0.7); EOSINOPHILS % (AUTO) 1.3 %; HCT - HEMATOCRIT 45.2 % (42.0-52.0); HGB - HEMOGLOBIN 14.6 g/dL (14.0-18.0); LYMPHOCYTES # (AUTO) 1.4 10^3/uL (1.5-3.5); LYMPHOCYTES % (AUTO) 18.3 %; MEAN CORPUSCULAR HEMOGLOBIN 31.5 pg (27.0-31.0); MEAN CORPUSCULAR HGB CONC 32.3 g/dL (32.0-36.0); MEAN CORPUSCULAR VOLUME 97.6 fL (80.0-94.0); MEAN PLATELET VOLUME 10.7 fL (7.4-11.4); MONOCYTES # (AUTO) 0.7 10^3/uL (0.0-1.0); MONOCYTES % (AUTO) 8.9 %; NEUTROPHILS # (AUTO) 5.5 10^3/uL (1.5-6.6); NEUTROPHILS % (AUTO) 70.9 %; PLT - PLATELET COUNT 175 10^3/uL (130-450); RED BLOOD COUNT 4.63 10^6/uL (4.70-6.10); RED CELL DISTRIBUTION WIDTH 14.6 % (12.0-15.0); WHITE BLOOD COUNT 7.8 x10^3/uL (4.8-10.8)
[2023-03-23 20:16] LABS: % IRON SATURATION 17 % (20-50); ALBUMIN 4.2 g/dL (3.2-5.5); IRON 60 ug/dL (50-212); TOTAL IRON BINDING CAPACITY 347 ug/dL (250-450); TRANSFERRIN 248 mg/dL (203-362)
[2023-03-23 20:24] LABS: THYROID STIMULATING HORMONE 2.17 uIU/mL (0.34-5.60)
[2023-03-23 20:31] LABS: FERRITIN 374.5 ng/mL (23.9-336.2)
[2023-03-23 21:19] LABS: ALBUMIN/GLOBULIN RATIO 1.2 (1.0-2.2); ALKALINE PHOSPHATASE 128 IU/L (42-121); ALT ALANINE AMINOTRANSFERASE 20 IU/L (10-60); AST ASPARTATE AMINOTRANSFERASE 29 IU/L (10-42); BILIRUBIN,TOTAL 1.3 mg/dL (0.2-1.0); BUN - BLOOD UREA NITROGEN 28 mg/dL (6-20); CALCIUM 9.8 mg/dL (8.5-10.3); CARBON DIOXIDE - CO2 24 mmol/L (21-32); CHLORIDE 105 mmol/L (101-111); CREATININE 1.6 mg/dL (0.6-1.3); GFR - MDRD 41 (>89); GLUCOSE 98 mg/dL (74-104); POTASSIUM 4.3 mmol/L (3.5-4.5); SODIUM 137 mmol/L (135-145); TOTAL PROTEIN 7.7 g/dL (6.4-8.9)
--- NOTE | 2023-03-24 09:30 | XRAY Report ---
PROCEDURE: Chest 2 View X-Ray INDICATIONS: DYSPNEA TECHNIQUE: 2 views of the chest were acquired. COMPARISON: 11/28/2022 FINDINGS: Surgical changes and devices: Median sternotomy changes. Lungs and pleura: Mixed interstitial and alveolar opacities are again seen, right worse than left an d chronic compared to the prior study. Blunting of the right lateral diaphragm. No pneumothorax. Mediastinum: Mediastinal contours appear normal. Heart size is normal. Bones and chest wall: No suspicious bony lesions. Overlying soft tissues appear unremarkable. IMPRESSION: Chronic interstitial thickening with superimposed increased right infrahilar alveolar opacity. Findin gs are likely acute on chronic interstitial edema although underlying infection cannot be excluded. The heart size has normalized compared to the prior study. Reviewed by: Mercy Le MD on 03/24/2023 9:28 AM PST Approved by: Mercy Le MD on 03/24/2023 9:28 AM PST Station ID: [id number]
== END 2023-03-23 13:06 | disposition home or self-care (01) ==
LOC: DI.S 13:05
PROVIDERS: ATTEND Registered Nurse
DX: R06.00 Dyspnea, unspecified (principal); Z86.39 Personal history of other endocrine, nutritional and metabolic disease; R41.89 Other symptoms and signs involving cognitive functions and awareness; I50.42 Chronic combined systolic (congestive) and diastolic (congestive) heart failure; R91.8 Other nonspecific abnormal finding of lung field
CPT/HCPCS: 36415; 80053; 82607; 82728; 82746; 83540; 83880; 84443; 84466; 85025

== ENCOUNTER 2023-07-02 03:51 | Outpatient (CLI) | payer MEDICARE, OTHER | END 2023-07-02 03:52 | disposition EMS.NT | LOC: EMS 03:51 | DX: U07.1 COVID-19 (principal) ==

== ENCOUNTER 2023-07-03 06:57 | Outpatient (CLI) | payer MEDICARE, OTHER | END 2023-07-03 23:59 | disposition critical access hospital (66) | LOC: EMS 06:57 | DX: R53.1 Weakness (principal); R63.0 Anorexia | CPT/HCPCS: A0425; A0427 ==

== ENCOUNTER 2023-07-03 07:43 | Inpatient (IN) | payer MEDICARE, OTHER ==
--- NOTE | 2023-07-03 08:23 | ED Physician Documentation ---
History of Present Illness - Stated complaint Stated Complaint: COVID+/WEAKNESS - Chief complaint Chief Complaint: Resp - Additonal information Additional information: Patient 88-year-old male with past medical history significant for coronary artery disease, CABG, congestive heart failure presented to the emergency department with shortness of breath. Reports tested positive for COVID 3-4 days ago. Progressively worsening shortness of breath and weakness at home. States never received any of the vaccines for COVID. Denies chest or abdominal pain. Reports has been so weak he has not been able to get out of bed. Review of Systems Constitutional: reports: Myalgias, Fatigue. denies: Fever Eyes: denies: Loss of vision Ears: denies: Loss of hearing Nose: denies: Rhinorrhea / runny nose Throat: denies: Sore throat Respiratory: reports: Dyspnea, Cough GI: denies: Abdominal Pain : denies: Dysuria Skin: denies: Rash Musculoskeletal: denies: Neck pain Neurologic: reports: Generalized weakness PD PAST MEDICAL HISTORY - Past Medical History Past Medical History: Yes Cardiovascular: Hypertension, High cholesterol, [place] Respiratory: Pneumonia, CPAP use GI: GI bleed : Incontinence HEENT: Chronic hearing loss Musculoskeletal: Gout - Past Surgical History Past Surgical History: Yes General: Bowel surgery Cardiovascular: CABG - Present Medications Home Medications: Ambulatory Orders Medication Instructions Recorded Confirmed Citalopram [CeleXA] 40 mg PO DAILY 10/03/14 04/08/21 Ferrous Sulfate, Dried [Iron] 65 mg PO TID 10/03/14 04/08/21 Finasteride 5 mg PO DAILY 10/03/14 04/08/21 Metoprolol Succinate 50 mg PO DAILY 10/03/14 04/08/21 [place]-3 Fatty Acids/Fish Oil [Fish 1,000 mg PO DAILY 10/03/14 04/08/21 Oil 1,000 mg Capsule] Simvastatin 40 mg PO DAILY 10/03/14 04/08/21 Tamsulosin HCl [Flomax] 0.4 mg PO DAILY 10/03/14 04/08/21 Glucosamine HCl/Chondroitin [place] 2 each PO DAILY 08/18/17 04/08/21 [Endur-Flex Sr Tablet] Multivitamin [Multivitamins] 1 each PO DAILY 08/18/17 04/08/21 Aspirin [[place] Aspirin] 81 mg PO DAILY 04/08/21 04/08/21 Melatonin 3 mg PO DAILY PM 04/08/21 04/08/21 Torsemide 10 mg PO DAILY 04/08/21 04/08/21 Zolpidem Tartrate [Ambien] 10 mg PO DAILY 04/08/21 04/08/21 allopurinoL [Allopurinol] 100 mg PO DAILY 04/08/21 04/08/21 buPROPion HCL [Bupropion Xl] 150 mg PO DAILY 04/08/21 04/08/21 Meclizine [Antivert] 12.5 mg PO Q6H PRN #30 tablet 07/22/21 dexAMETHasone [Decadron] 4 mg PO DAILY #6 tablet 07/22/21 - Allergies Allergies/Adverse Reactions: Allergies Allergy/AdvReac Type Severity Reaction Status Date / Time lisinopril Allergy Unknown Verified 07/03/23 07:55 - Social History Does the pt smoke?: No Smoking Status: Never smoker Does the pt drink ETOH?: Yes Does the pt have substance abuse?: No - Immunizations Immunizations are current?: Yes - POLST Patient has POLST: Yes PD ED PE NORMAL - Vitals Vital signs reviewed: Yes (Patient hypoxic on arrival, initial oxygen saturation 81%.) - General General: Alert and oriented X 3, No acute distress, Other (Patient is extremely hard of hearing) - HEENT HEENT: Atraumatic, PERRL, EOMI, Ears normal, Moist mucous membranes, Pharynx benign, Dentition benign - Neck Neck: Supple, no meningeal sign, No bony TTP, No adenopathy, Thyroid normal, No JVD - Cardiac Cardiac: RRR - Respiratory Respiratory: No respiratory distress - Abdomen Abdomen: Normal bowel sounds, Non tender - Male Male : Deferred - Rectal Rectal: Deferred - Back Back: No CVA TTP - Derm Derm: Normal color - Extremities Extremities: No deformity - Neuro Neuro: Alert and oriented X 3, keeper helper 2-12 intact, No motor deficit - Psych Psych: Normal mood Results - Vitals Vitals: Vital Signs - 24 hr 07/03/23 07:47 Temperature 37.7 C Heart Rate 67 Respiratory 26 H Rate Blood Pressure 155/85 H O2 Saturation 81 L Oxygen O2 Source Room air Oxygen Flow Rate 4 - EKG (time done) 0818 EKG releavant findings:: EKG personally interpreted by author of this note. Relevant findings are: Atrial fibrillation with rate 75 bpm. Left axis deviation. Left bundle branch block morphology. No concordant ST segment elevations, concordant ST segment depressions or excessive discordance in any lead. No significant change in comparison to previous 2020. - Labs Labs: Laboratory Tests 07/03/23 07/03/23 07/03/23 08:15 08:30 08:30 WBC 6.0 RBC 3.99 L Hgb 12.6 L Hct 38.3 L MCV 96.0 H MCH 31.6 H MCHC 32.9 RDW 14.4 Plt Count 135 MPV 9.4 Neut # (Auto) 4.6 Lymph # (Auto) 0.5 L Weakley # (Auto) 0.8 Eos # (Auto) 0.0 Baso # (Auto) 0.0 Absolute Nucleated RBC 0.00 Nucleated RBC % 0.0 VBG pH VBG pCO2 VBG pO2 VBG HCO3 VBG Total CO2 VBG O2 Saturation VBG Base Excess Sodium Potassium Chloride Carbon Dioxide Anion Gap BUN Creatinine Estimated GFR (MDRD) Glucose Calcium Magnesium 1.8 Total Bilirubin AST ALT Alkaline Phosphatase Total Creatine Kinase 498 H B-Natriuretic Peptide Total Protein Albumin Globulin Albumin/Globulin Ratio Nasal Adenovirus (PCR) NOT DETECTED Nasal B. parapertussis DNA (PCR) NOT DETECTED Nasal Coronavir 229E PCR NOT DETECTED Nasal Coronavir HKU1 PCR NOT DETECTED Nasal Coronavir NL63 PCR NOT DETECTED Nasal Coronavir OC43 PCR NOT DETECTED Nasal Enterovir/Rhinovir PCR NOT DETECTED Nasal Influenza B PCR NOT DETECTED Nasal Influenza A PCR NOT DETECTED Nasal Parainfluen 1 PCR NOT DETECTED Nasal Parainfluen 2 PCR NOT DETECTED Nasal Parainfluen 3 PCR NOT DETECTED Nasal Parainfluen 4 PCR NOT DETECTED Nasal RSV (PCR) NOT DETECTED Nasal B.pertussis DNA PCR NOT DETECTED Nasal C.pneumoniae (PCR) NOT DETECTED Riki Human Metapneumo PCR NOT DETECTED Nasal M.pneumoniae (PCR) NOT DETECTED Nasal SARS-CoV-2 (PCR) DETECTED A 07/03/23 07/03/23 07/03/23 08:30 08:30 08:30 WBC RBC Hgb Hct MCV MCH MCHC RDW Plt Count MPV Neut # (Auto) Lymph # (Auto) Weakley # (Auto) Eos # (Auto) Baso # (Auto) Absolute Nucleated RBC Nucleated RBC % VBG pH 7.372 VBG pCO2 36.5 L VBG pO2 51.3 H VBG HCO3 20.7 L VBG Total CO2 21.8 L VBG O2 Saturation 83.9 H VBG Base Excess -3.9 L Sodium 132 L Potassium 3.8 Chloride 100 L Carbon Dioxide 22 Anion Gap 10.0 BUN 34 H Creatinine 2.0 H Estimated GFR (MDRD) 32 L Glucose 76 Calcium 9.1 Magnesium Total Bilirubin 1.0 AST 36 ALT 20 Alkaline Phosphatase 139 H Total Creatine Kinase B-Natriuretic Peptide 493 H Total Protein 7.3 Albumin 3.7 Globulin 3.6 Albumin/Globulin Ratio 1.0 Nasal Adenovirus (PCR) Nasal B. parapertussis DNA (PCR) Nasal Coronavir 229E PCR Nasal Coronavir HKU1 PCR Nasal Coronavir NL63 PCR Nasal Coronavir OC43 PCR Nasal Enterovir/Rhinovir PCR Nasal Influenza B PCR Nasal Influenza A PCR Nasal Parainfluen 1 PCR Nasal Parainfluen 2 PCR Nasal Parainfluen 3 PCR Nasal Parainfluen 4 PCR Nasal RSV (PCR) Nasal B.pertussis DNA PCR Nasal C.pneumoniae (PCR) Riki Human Metapneumo PCR Nasal M.pneumoniae (PCR) Nasal SARS-CoV-2 (PCR) PD Medical Decision Making - ED course Complexity details: reviewed old records, reviewed results, re-evaluated genesis chen, considered differential, d/w patient, d/w [employer] operations consultant ED course: Patient 88-year-old male presenting to the emergency department with shortness of breath. This is in setting of known history of atrial fibrillation, CHF, recent home diagnosis of SARS COVID virus. Patient endorsed for being unvaccinated to the SARS COVID virus. Presents hypoxic with oxygen saturation 81%. Respiratory rate 26. Otherwise hemodynamically stable. Started on supplemental oxygen 3-4 L via nasal cannula. Generally clear aeration in all lung frausto. Abdominal exam benign. Labs generally reassuring although he does have a very mild hyponatremia with sodium 132 as well as an elevation from his baseline creatinine at 2.0. Chart review demonstrates baseline is 1.4-1.6. This is consistent with a very mild early prerenal azotemia. Chest x-ray demonstrates cardiomegaly with pulmonary vascular congestion, query superimposed pneumonia. He is positive for the COVID virus here. Given 6 mg Decadron, covered with Rocephin, azithromycin for community-acquired pneumonia. Additionally given dose of Lasix. Informed by nursing staff that he has been having progressive increased urge to urinate but has been unable to urinate. Endorses for history of frequent nocturnal micturition consistent with an enlarged prostate. Da Silva catheter placed here in the emergency department for outlet obstruction. Care discussed with the hospitalist service who graciously agrees to hospitalize for further evaluation and treatment. Departure - Departure Disposition: 66 [facility] DC/Xfer Clinical Impression: Respiratory failure, COVID-19, CHF exacerbation, PNA (pneumonia)
[2023-07-03 08:39] LABS: BASOPHILS % (AUTO) 0.2 %; HCT - HEMATOCRIT 38.3 % (42.0-52.0); HGB - HEMOGLOBIN 12.6 g/dL (14.0-18.0); LYMPHOCYTES # (AUTO) 0.5 10^3/uL (1.5-3.5); MEAN CORPUSCULAR HEMOGLOBIN 31.6 pg (27.0-31.0); MEAN CORPUSCULAR HGB CONC 32.9 g/dL (32.0-36.0); MEAN PLATELET VOLUME 9.4 fL (7.4-11.4); MONOCYTES # (AUTO) 0.8 10^3/uL (0.0-1.0); MONOCYTES % (AUTO) 13.8 %; NEUTROPHILS # (AUTO) 4.6 10^3/uL (1.5-6.6); NEUTROPHILS % (AUTO) 76.5 %; PLT - PLATELET COUNT 135 10^3/uL (130-450); RED BLOOD COUNT 3.99 10^6/uL (4.70-6.10); RED CELL DISTRIBUTION WIDTH 14.4 % (12.0-15.0)
[2023-07-03 08:43] LABS: VBG BASE EXCESS -3.9 mmol/L (-2 - +2); VBG HCO3 20.7 mmol/L (23-28); VBG PCO2 36.5 mmHg (41-51); VBG PH 7.372 (7.31-7.41); VBG PO2 51.3 mmHg (25-47); VBG TOTAL CO2 21.8 mmol/L (24-29)
[2023-07-03 08:44] LABS: VBG OXYGEN SATURATION 83.9 % (60-80)
[2023-07-03 08:49] LABS: ALBUMIN 3.7 g/dL (3.2-5.5); CALCIUM 9.1 mg/dL (8.5-10.3); POTASSIUM 3.8 mmol/L (3.5-4.5); TOTAL PROTEIN 7.3 g/dL (6.4-8.9)
--- NOTE | 2023-07-03 09:00 | XRAY Report ---
PROCEDURE: Chest 1V INDICATIONS: COVID + Requires O2 TECHNIQUE: One view of the chest was acquired. COMPARISON: 03/23/2023. FINDINGS: Surgical changes and devices: Midline sternotomy. Lungs and pleura: Pulmonary edema, probable right pleural fluid versus superimposed right-sided pneu monia. Mediastinum: Mediastinal contours appear normal. Cardiomegaly. Bones and chest wall: No suspicious bony lesions. Overlying soft tissues appear unremarkable. IMPRESSION: Congestive heart failure with question of superimposed pneumonia. Reviewed by: Robb Brito MD on 07/03/2023 8:58 AM PDT Approved by: Robb Brito MD on 07/03/2023 8:58 AM PDT Station ID: [id number]
[2023-07-03 09:07] LABS: MAGNESIUM 1.8 mg/dL (1.7-2.3)
[2023-07-03 09:19] LABS: B. PARAPERTUSSIS- RESP PCR PAN NOT DETECTED; B. PERTUSSIS- RESP PCR PANEL NOT DETECTED; C. PNEUMONIAE- RESP PCR PANEL NOT DETECTED; CORONAVIRUS 229E-RESP PCR NOT DETECTED; CORONAVIRUS HKU1-RESP PCR NOT DETECTED; CORONAVIRUS NL63-RESP PCR NOT DETECTED; CORONAVIRUS OC43-RESP PCR NOT DETECTED; HUMAN METAPNEUMOVIRUS NOT DETECTED; INFLUENZA A- RESP PCR PANEL NOT DETECTED; INFLUENZA B - RESP PCR PANEL NOT DETECTED; M. PNEUMONIAE- RESP PCR PANEL NOT DETECTED; PARAINFLUENZA VIRUS 1 NOT DETECTED; PARAINFLUENZA VIRUS 2 NOT DETECTED; PARAINFLUENZA VIRUS 3 NOT DETECTED; PARAINFLUENZA VIRUS 4 NOT DETECTED; RHINOVIRUS/ENTEROVIRUS NOT DETECTED; RSV- RESP PCR PANEL NOT DETECTED
[2023-07-03 09:24] LABS: SARS-CoV-2 -RESP PCR PANEL DETECTED
[2023-07-03] MEDS: FUROSEMIDE 40 MG/4 ML VIAL IVP STA ×2 (10:29→12:48)
[2023-07-03] MEDS: DEXAMETHASONE 10 MG/ML VIAL IVP STA ×2 (10:29→12:48)
[2023-07-03] MEDS: cefTRIAXone 1 GM in SODIUM CHLORIDE 0.9% MINIBAG 100 ML IV STA (10:35)
[2023-07-03] MEDS: AZITHROMYCIN INJ 500 MG in SODIUM CHLORIDE 0.9% 250 ML IV STA (10:53)
[2023-07-03] MEDS ORDERED: HYDROcod/ACETAM 5/325 MG TABLET PO PRN (10:58)
[2023-07-03] MEDS ORDERED: ONDANSETRON ODT 4 MG TABLET TL PRN (10:58)
[2023-07-03] MEDS ORDERED: ACETAMINOPHEN 325 MG TABLET PO PRN (10:58)
[2023-07-03] MEDS ORDERED: ONDANSETRON 4 MG/2 ML VIAL IVP PRN (10:58)
--- NOTE | 2023-07-03 11:10 | HISTORY & PHYSICAL EXAMINATION ---
Chief Complaint - Chief Complaint Chief Complaint: SOB History of Present Illness - Admitted From Admitted From:: ED, came from home - History Obtained From Records Reviewed: Yes History obtained from: ED provider, patient Exam Limitations: No - History of Present Illness HPI Comment/Other: An 88 years old male with history of CAD s/p CABG, CHF, atrial fibrillation on Eliquis, BPH, iron deficient anemia presented to the ED with complaints of increasing shortness of breath, Generalized weakness, and home COVID test + four days ago. Patient reports he was not vaccinated against COVID. He started to feel ill about 4 days ago, shortness of breath and generalized weakness becomes profound today, he was too weak even to get out out of bed. Denies fever, or chills, no cough, no sputum production. Denies runny nose. No nausea vomiting. No diarrhea no dysuria or frequency. In the ED, Patient was tachypneic, hypoxia with oxygen saturation down to 81% on room air was improved with 3 L of oxygen. Afebrile, mild elevated blood pressure. Labs significant with normal white count, sodium 132, BMP 493, CK4 98, creatinine 2.0 worsened than baseline. Chest x-ray shows patchy opacity. COVID-19 positive. Patient was given Decadron, ceftriaxone and azithromycin in the ED History - Past Medical History Cardiovascular: reports: Hypertension, High cholesterol, [place] Respiratory: reports: Pneumonia, CPAP use GI: reports: GI bleed : reports: Incontinence HEENT: reports: Chronic hearing loss Musculoskeletal: reports: Gout MRSA Hx?: No - Past Surgical History General: reports: Bowel surgery Cardiovascular: reports: CABG - POLST Patient has POLST: Yes Meds/Allgy - Home Medications Home Medications: Ambulatory Orders Medication Instructions Recorded Confirmed Citalopram [CeleXA] 40 mg PO DAILY 10/03/14 04/08/21 Ferrous Sulfate, Dried [Iron] 65 mg PO TID 10/03/14 04/08/21 Finasteride 5 mg PO DAILY 10/03/14 04/08/21 Metoprolol Succinate 50 mg PO DAILY 10/03/14 04/08/21 [place]-3 Fatty Acids/Fish Oil [Fish 1,000 mg PO DAILY 10/03/14 04/08/21 Oil 1,000 mg Capsule] Simvastatin 40 mg PO DAILY 10/03/14 04/08/21 Tamsulosin HCl [Flomax] 0.4 mg PO DAILY 10/03/14 04/08/21 Glucosamine HCl/Chondroitin [place] 2 each PO DAILY 08/18/17 04/08/21 [Endur-Flex Sr Tablet] Multivitamin [Multivitamins] 1 each PO DAILY 08/18/17 04/08/21 Aspirin [[place] Aspirin] 81 mg PO DAILY 04/08/21 04/08/21 Melatonin 3 mg PO DAILY PM 04/08/21 04/08/21 Torsemide 10 mg PO DAILY 04/08/21 04/08/21 Zolpidem Tartrate [Ambien] 10 mg PO DAILY 04/08/21 04/08/21 allopurinoL [Allopurinol] 100 mg PO DAILY 04/08/21 04/08/21 buPROPion HCL [Bupropion Xl] 150 mg PO DAILY 04/08/21 04/08/21 Meclizine [Antivert] 12.5 mg PO Q6H PRN #30 tablet 07/22/21 dexAMETHasone [Decadron] 4 mg PO DAILY #6 tablet 07/22/21 - Allergies Allergies/Adverse Reactions: Allergies Allergy/AdvReac Type Severity Reaction Status Date / Time lisinopril Allergy Unknown Verified 07/03/23 07:55 Review of Systems - Constitutional Constitutional: reports: Weakness - Ears, Nose & Throat Ears, Nose & Throat: reports: Other (Very hard of hearing) - Cardiovascular Cariovascular: denies: Palpitations, Chest pain - Respiratory Respiratory: reports: SOB at rest, SOB with exertion. denies: Sputum production, Wheezing - Gastrointestinal Gastrointestinal: denies: Abdominal pain, Constipation, Diarrhea - Genitourinary Genitourinary: denies: Dysuria, Frequency, Urgency - Musculoskeletal Musculoskeletal: reports: Gout (Stable) - Neurological Neurological: reports: General weakness. denies: Focal weakness - Hematologic/Lymphatic Hematologic/Lymphatic: reports: Anemia Prior Level of Functionality: ADLs with assist Exam - Vital Signs Vital Signs: Vital Signs x48h Temp Pulse Resp BP Pulse Ox 07/03/23 07:47 37.7 C 67 26 H 155/85 H 81 L - Physical Exam General Appearance: positive: Alert, Mild distress Eyes Bilateral: positive: PERRL, EOMI ENT: positive: ENT inspection nml, Other (Very hard of hearing) Respiratory: positive: Chest non-tender, Rhonchi. negative: Wheezes, Rales Cardiovascular: positive: Irregularly irregular Abdomen: positive: Non-tender. negative: Guarding, Rebound Skin: positive: Warm, Dry Extremities: positive: Non-tender Neurologic/Psychiatric: positive: CN's nml (2-12) Sepsis Event Note (H) - Evaluation Current Stage of Sepsis: Ruled out Conclusion/Plan - Problem List (1) COVID-19 Conclusion/Plan: Start remdesivir, continue Decadron Droplet contact isolation (2) Respiratory failure Conclusion/Plan: Hypoxemic respiratory failure secondary to COVID-pneumonia, cannot rule out bacterial pneumonia, and component of CHF Oxygen treatment Give remdesivir and Steroid Continue ceftriaxone and azithromycin Give IV Lasix 40 mg 1 dose Qualifiers: Chronicity: acute Respiratory failure complication: hypoxia Qualified Code(s): J96.01 - Acute respiratory failure with hypoxia (3) Chronic renal insufficiency Conclusion/Plan: Creatinine 2, worsened than baseline renal function On torsemide 10 mg daily for CHF at home Plans to give Lasix IV, closely monitoring renal function Qualifiers: Chronic kidney disease stage: unspecified stage Qualified Code(s): N18.9 - Chronic kidney disease, unspecified (4) Congestive heart failure Conclusion/Plan: History of CAD and CHF With worsening shortness of breath, BNP 493,Chest x-ray showed pulmonary congestion Give diuretics Strict ins and O Fluid restriction 1.8 L/day Qualifiers: Heart failure type: unspecified Heart failure chronicity: acute on chronic Qualified Code(s): I50.9 - Heart failure, unspecified (5) Atrial fibrillation Conclusion/Plan: Persistent A-fib, rate controlled Continue metoprolol and Eliquis Telemetry - Lab Results Lab results reviewed: Yes Fish Bones: 07/03/23 08:30 07/03/23 08:30 - Diagnostic Imaging Results Diagnostic Imaging Results: positive: Final report reviewed
[2023-07-03 12:06] LABS: BILIRUBIN,URINE NEGATIVE (NEGATIVE); GLUCOSE, URINE (UA) NEGATIVE (NEGATIVE); KETONES,URINE (UA) NEGATIVE (NEGATIVE); LEUKOCYTE ESTERASE, URINE NEGATIVE (NEGATIVE); NITRITE,URINE NEGATIVE (NEGATIVE); OCCULT BLOOD,URINE NEGATIVE (NEGATIVE); PH,URINE 5.5 PH (5.0-7.5); PROTEIN,URINE NEGATIVE (NEGATIVE); UROBILINOGEN,URINE 0.2 (NORMAL) E.U./dL (NORMAL)
[2023-07-03 12:08] LABS: CLARITY,URINE CLEAR (CLEAR)
[2023-07-03] MEDS: ENOXAPARIN 40 MG/0.4 ML SYRINGE SUBQ SCH (13:25)
[2023-07-03] MEDS: REMDESIVIR 200 MG in SODIUM CHLORIDE 0.9% 250 ML IV ONE (14:38)
[2023-07-03] MEDS: SODIUM CHLORIDE FLUSH 0.9% 10 ML SYRINGE IVP PRN (14:38)
[2023-07-03] MEDS: SODIUM CHLORIDE FLUSH 0.9% 10 ML SYRINGE IVP SCH (18:04)
[2023-07-03] MEDS ORDERED: ZOLPIDEM 5 MG TABLET PO PRN (18:59)
[2023-07-03] MEDS: POTASSIUM CHLORIDE 20 MEQ TABLET PO SCH (21:09)
[2023-07-03] MEDS: ATORVASTATIN 40 MG TABLET PO SCH (21:09)
[2023-07-04 05:43] LABS: HCT - HEMATOCRIT 39.2 % (42.0-52.0); HGB - HEMOGLOBIN 12.7 g/dL (14.0-18.0); LYMPHOCYTES # (AUTO) 0.6 10^3/uL (1.5-3.5); LYMPHOCYTES % (AUTO) 12.2 %; MEAN CORPUSCULAR HGB CONC 32.4 g/dL (32.0-36.0); MEAN CORPUSCULAR VOLUME 95.6 fL (80.0-94.0); MEAN PLATELET VOLUME 9.8 fL (7.4-11.4); MONOCYTES # (AUTO) 0.5 10^3/uL (0.0-1.0); MONOCYTES % (AUTO) 8.9 %; NEUTROPHILS % (AUTO) 78.5 %; PLT - PLATELET COUNT 137 10^3/uL (130-450); RED CELL DISTRIBUTION WIDTH 14.1 % (12.0-15.0); WHITE BLOOD COUNT 5.1 x10^3/uL (4.8-10.8)
[2023-07-04] MEDS: ZINC OXIDE 20% OINT 30 GM TUBE TOP PRN (05:50)
[2023-07-04 05:51] LABS: CALCIUM 8.9 mg/dL (8.5-10.3); CREATININE 1.7 mg/dL (0.6-1.3); POTASSIUM 3.6 mmol/L (3.5-4.5)
[2023-07-04] MEDS ORDERED: POTASSIUM CHLORIDE 20 MEQ TABLET PO SCH (08:00)
[2023-07-04] MEDS ORDERED: cefTRIAXone 1 GM VIAL IVP SCH (09:00)
[2023-07-04] MEDS ORDERED: FUROSEMIDE 40 MG/4 ML VIAL IVP SCH (09:00)
[2023-07-04] MEDS: FUROSEMIDE 40 MG/4 ML VIAL IV SCH (09:02)
[2023-07-04] MEDS: buPROPion XL 150 MG TABLET PO SCH (09:03)
[2023-07-04] MEDS: AZITHROMYCIN 250 MG TABLET PO SCH (09:04)
[2023-07-04] MEDS: FERROUS SULFATE 325 MG TABLET PO SCH (09:04)
[2023-07-04] MEDS: FINASTERIDE 5 MG TABLET PO SCH (09:04)
[2023-07-04] MEDS: METOPROLOL SUCCINATE 50 MG TABLET PO SCH (09:04)
[2023-07-04] MEDS: TAMSULOSIN 0.4 MG CAPSULE PO SCH (09:04)
[2023-07-04] MEDS: allopurinoL 100 MG TABLET PO SCH (09:25)
[2023-07-04] MEDS: cefTRIAXone 1 GM in SODIUM CHLORIDE 0.9% MINIBAG 100 ML IV SCH (09:25)
[2023-07-04] MEDS: DEXAMETHASONE 4 MG/ML VIAL IVP SCH (09:35)
[2023-07-04] MEDS: ASPIRIN 325 MG TABLET PO SCH (10:38)
--- NOTE | 2023-07-04 12:26 | PHARMACY PROGRESS NOTE ---
- Best Possible Medication History Admit Date and Time: 07/03/23 1058 Processed by: Pharmacy Medications reviewed in ED?: Yes Medication History completed: Yes Patient Interview: Completed Secondary Source(s): Written medication list, Spouse/Significant other, Insurance records As the person ultimately responsible for medication therapy, providers are able to order a medication from an existing home medication list in [facility] via the "Reconcile Routine" prior to Confirmation of that medication by network diagnostic support specialist. Such practice is discouraged except when the physician, in their clinical judgment, deems that a medical need exists for a medication without regard to previous use.
[2023-07-04] MEDS: REMDESIVIR 100 MG in SODIUM CHLORIDE 0.9% 100ML 100 ML IV SCH (14:44)
[2023-07-04] MEDS ORDERED: BENZONATATE 100 MG CAPSULE PO PRN (21:39)
[2023-07-04] MEDS: guaiFENesin/DEXTROMETHORPHAN 10 ML UDC PO PRN (22:18)
[2023-07-05 05:40] LABS: BASOPHILS % (AUTO) 0.1 %; HCT - HEMATOCRIT 39.4 % (42.0-52.0); HGB - HEMOGLOBIN 12.7 g/dL (14.0-18.0); LYMPHOCYTES # (AUTO) 0.8 10^3/uL (1.5-3.5); LYMPHOCYTES % (AUTO) 11.4 %; MEAN CORPUSCULAR HEMOGLOBIN 31.1 pg (27.0-31.0); MEAN CORPUSCULAR HGB CONC 32.2 g/dL (32.0-36.0); MEAN CORPUSCULAR VOLUME 96.6 fL (80.0-94.0); MEAN PLATELET VOLUME 10.7 fL (7.4-11.4); MONOCYTES # (AUTO) 0.5 10^3/uL (0.0-1.0); MONOCYTES % (AUTO) 7.8 %; NEUTROPHILS # (AUTO) 5.4 10^3/uL (1.5-6.6); NEUTROPHILS % (AUTO) 80.4 %; PLT - PLATELET COUNT 147 10^3/uL (130-450); RED BLOOD COUNT 4.08 10^6/uL (4.70-6.10); RED CELL DISTRIBUTION WIDTH 14.1 % (12.0-15.0); WHITE BLOOD COUNT 6.8 x10^3/uL (4.8-10.8)
[2023-07-05 06:05] LABS: CALCIUM 8.7 mg/dL (8.5-10.3); POTASSIUM 3.8 mmol/L (3.5-4.5)
--- NOTE | 2023-07-05 08:07 | PROVIDER PROGRESS NOTE ---
Progress Note July 04, 2023 1300 Patient has been stable with no new events. He has been congested and coughing but has no other complaints. He has been requiring 2 to 3 L to maintain O2 sat at 92%. Eating about 75% of his food. Various family members have been in the room with him. This afternoon his daughter requested an update. I let her know that dad is doing well. That the usual treatment for COVID is 5 days of remdesivir with 10 days of steroids. However he tested positive for COVID 4 days before admission. And as such she is not a candidate for the remdesivir. However chest x-ray showed early pneumonia and he is being treated for empiric antibiotics for bacterial pneumonia. We discussed the difference between viral pneumonia and bacterial pneumonia and why he is on the antibiotics. 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 Please see advance care planning conversation under separate dictation. Exam: Temperature 36.8, heart rate 66, blood pressure 159/81, respirations 16. 3 L nasal cannula resulting in 94% O2 sat Short statured at 5 foot 10, 102 kg. He appears to be a well-nourished well- developed elderly gentleman. While he is congested and has occasional coughing, blowing of his nose, he is comfortable and that he is calmly reading the paper. Occasionally pulling the paper down to look over his glasses to look at his daughter and I as we discussed his case and I updated her. ENT exam is remarkable for the nasal congestion, rhinorrhea, nasal tone to voice Neck is supple, shotty adenopathy Lungs have coarse whistling rhonchi but no wheezing, respiratory distress. 1 episode of coughing during my exam Regular rate and rhythm. Abdomen is obese, soft, nontender Extremities without edema Laboratory Tests 07/04/23 07/04/23 05:08 05:08 WBC 5.1 Hgb 12.7 L Hct 39.2 L Plt Count 137 Sodium 135 Potassium 3.6 Chloride 103 Carbon Dioxide 21 Anion Gap 11.0 BUN 38 H Creatinine 1.7 H Estimated GFR (MDRD) 38 L Glucose 130 H Calcium 8.9 .Conclusion/Plan - Problem List (1) COVID-19 Conclusion/Plan: Started remdesivir 3 but not dose today. i will verify with pharmacy if the patient is a candidate or not , continue Decadron and plan for 10 days. today is Day #2 Droplet contact isolation (2) Respiratory failure Conclusion/Plan: Hypoxemic respiratory failure secondary to COVID-pneumonia, cannot rule out bacterial pneumonia, and component of CHF Contine Oxygen for goal >92% 02 sat. Give remdesivir and Steroid Continue ceftriaxone and azithromycin, Today is day #2/5 ceftriazone and #2/3 azithromycin Given IV Lasix 40 mg for CHF 3, and he is on torsemide at home. I hear rhonchi but no rales and he is comfortable on exam, no edema. no JVD Qualifiers: Chronicity: acute Respiratory failure complication: hypoxia Qualified Code(s): J96.01 - Acute respiratory failure with hypoxia (3) Chronic renal insufficiency Conclusion/Plan: Baseline creatinine is between 1.5 and 1.9. On admission he was 2. Today he is 1.7. Will need to balance his need for IV fluids versus fluid overload because of our resuscitation. Continue to monitor daily. Avoid nephrotoxic agents Adjust medications as needed Qualifiers: Chronic kidney disease stage: unspecified stage Qualified Code(s): N18.9 - Chronic kidney disease, unspecified (4) Congestive heart failure Conclusion/Plan: History of CAD and CHF With worsening shortness of breath, BNP 493,Chest x-ray showed pulmonary congestion Give diuretics Strict ins and O Fluid restriction 1.8 L/day Qualifiers: Heart failure type: unspecified Heart failure chronicity: acute on chronic Qualified Code(s): I50.9 - Heart failure, unspecified (5) Atrial fibrillation Conclusion/Plan: Persistent A-fib, rate controlled Continue metoprolol and Eliquis Telemetry
--- NOTE | 2023-07-05 08:13 | ADVANCE CARE PLANNING NOTE ---
Advance Care Planning - Planning Encounter Date: 07/04/23 Time: 13:10 Purpose: discuss code status in view of care goals Parties in Attendance: Hospitalist, Daughter, and patient Decisional Capacity of the Patient: he is alert and oriented to self, place but not time or situation, partially deaf - Diagnosis for Encounter (1) COVID-19 Summary: Elderly gentleman who lives at home with his second . Presents 4 days after becoming positive for COVID with progressive shortness of breath. Has pneumonia on chest x-ray and exam. - Encounter Subjective/Patient's Story: This blanca gentleman lives with his second . Daughter in the room states that her mother lives in [place] with her brother. The agreement in the family is that her brother has taken mom, and she is taking care of dad. She is a DPOA. However is a secondary position. Her stepmother is probably the primary DPOA. I asked about resuscitation status. I had wondered what their goals were with regards to this. With his age and comorbidities the resuscitation effort would probably be futile. I explained the difference between DO NOT RESUSCITATE and do not treat. I would anticipate that we would do everything to treat her father for any medical problem he had. If he needed to go to an ICU, be intubated, require antibiotics, blood transfusions, surgery those were all be offered in treatment for what ever disease he may have. But if all treatment was provided, and he failed and his heart were to stop, resuscitation would really not be in order. She states that she never really thought about it that way before. I asked what the plans were for the future. This elderly gentleman will continue to slowly deteriorate just due to age and disease. She states that they are already in discussions about need for placement or need for caregivers. Patient and she and stepmom and brother will have a discussion and decide if maybe is resuscitation status should change. He also has a POLST form that states both full treatment and limited intervention. She is willing for me to redo the POLST form once the family has a discussion Objective/Medical Story: An 88 years old male with history of CAD s/p CABG, CHF, atrial fibrillation on Eliquis, BPH, iron deficient anemia presented to the ED with complaints of increasing shortness of breath, Generalized weakness, and home COVID test + four days ago. Patient reports he was not vaccinated against COVID. He started to feel ill about 4 days ago, shortness of breath and generalized weakness becomes profound today, he was too weak even to get out out of bed. Denies fever, or chills, no cough, no sputum production. Denies runny nose. No nausea vomiting. No diarrhea no dysuria or frequency. In the ED, Patient was tachypneic, hypoxia with oxygen saturation down to 81% on room air was improved with 3 L of oxygen. Afebrile, mild elevated blood pressure. Labs significant with normal white count, sodium 132, BMP 493, CK4 98, creatinine 2.0 worsened than baseline. Chest x-ray shows patchy opacity. COVID-19 positive. Patient was given Decadron, ceftriaxone and azithromycin in the ED - Past Medical History Cardiovascular: reports: Hypertension, High cholesterol, [place] Respiratory: reports: Pneumonia, CPAP use GI: reports: GI bleed : reports: Incontinence HEENT: reports: Chronic hearing loss Musculoskeletal: reports: Gout MRSA Hx?: No - Past Surgical History General: reports: Bowel surgery Cardiovascular: reports: CABG So far with his hospital course the patient is doing well. Oxygen is stable on 2 to 3 L. He is comfortable, no respiratory distress. Eating about 75% of his food. Currently sitting up in bed reading the newspaper while his daughter and I talk and he interacts with us occasionally. Goals of Care: For him to remain as comfortable as possible with regards to pain and discomfort such as shortness of breath. How that goal will be achieved is still in the preliminary discussions within the family. Plan: We discussed CODE STATUS in the next 1 to 2 days. And then I will do the POLST form. By default he will remain full code until the family can have a conversation Code Status: Attempt Resuscitation Time spent on advance care plannin minutes
[2023-07-05] MEDS ORDERED: NON FORMULARY MED (Remdesivir 100 MG) IVP SCH (09:00)
[2023-07-05] MEDS: METOPROLOL SUCCINATE 50 MG TABLET PO SCH (09:09)
[2023-07-05] MEDS: ASPIRIN CHEW 81 MG TABLET PO SCH (13:54)
[2023-07-05] MEDS: polyethylene glycoL 3350 17 GM PACKET PO SCH (17:21)
[2023-07-05] MEDS: SENNA 8.6 MG TABLET PO SCH (17:22)
[2023-07-05] MEDS: DOCUSATE SODIUM 250 MG CAPSULE PO SCH (17:22)
--- NOTE | 2023-07-05 18:19 | PROVIDER PROGRESS NOTE ---
Progress Note July 05, 2023 6:17 PM Patient is continuing to improve. He is pleasantly watching TV. Has a really high volume. His daughter and are at the bedside. They pretty much stay here 14/11 to keep him company. They do want to make sure that his POLST form is redone. states that they have talked about this in the past. He was very angry when he was intubated for double pneumonia a few years ago. When he was finally himself and back to baseline, he told her that he never wanted to do that again. So she wants to make sure that he is a DO NOT RESUSCITATE with no intubation at his wishes. Currently eating more. He is at baseline a very sedentary person. 4 years ago he had his hip done. He was afraid of falling so he put himself in a wheelchair. At home he does wheel himself to where he needs to be. He will stand, transfer, and then sit again. He goes to a bathroom that way. He does not like to shower anymore because he is afraid of falling. So that happens infrequently and he will only do a sink bath. He can feed himself. He does dress himself. He has special instruments to get his socks on. He even has a s pecific way of getting pants on. He does not go outside anymore because he fell once outside a few months ago and he could not get up and they had to call the neighbors. Right now he does not have the strength to stand and transfer. As such he is not at his baseline for what he does at home. Active Medications Acetaminophen (Acetaminophen 325 Mg Tablet) 650 mg PO Q4HR PRN PRN Reason: Pain 1 to 4, or Fever Hydrocodone Bitart/Acetaminophen (Hydrocod/Acetam 5/325 Mg Tablet) 1 tab PO Q4HR PRN PRN Reason: Pain 5 to 7 Allopurinol (Allopurinol 100 Mg Tablet) 100 mg PO DAILY [facility] Last Admin: 07/05/23 09:09 Dose: 100 mg Aspirin (Aspirin Chew 81 Mg Tablet) 81 mg PO DAILYWM [facility] Last Admin: 07/05/23 13:54 Dose: 81 mg Atorvastatin Calcium (Atorvastatin 40 Mg Tablet) 40 mg PO QPM [facility] Last Admin: 07/04/23 21:11 Dose: 40 mg Azithromycin (Azithromycin 250 Mg Tablet) 500 mg PO DAILY [facility] Stop: 07/06/23 08:59 Last Admin: 07/05/23 09:09 Dose: 500 mg Benzonatate (Benzonatate 100 Mg Capsule) 100 mg PO TID PRN PRN Reason: Cough Bupropion HCl (Bupropion Xl 150 Mg Tablet) 150 mg PO DAILY [facility] Last Admin: 07/05/23 09:09 Dose: 150 mg Dexamethasone (Dexamethasone 4 Mg/Ml Vial) 6 mg IVP DAILY [facility] Last Admin: 07/05/23 09:09 Dose: 6 mg Docusate Sodium (Docusate Sodium 250 Mg Capsule) 250 - 500 mg PO DAILY [facility] Last Admin: 07/05/23 17:22 Dose: 250 mg Enoxaparin Sodium (Enoxaparin 40 Mg/0.4 Ml Syringe) 40 mg SUBQ DAILY [facility] Last Admin: 07/05/23 09:11 Dose: 40 mg Ferrous Sulfate (Ferrous Sulfate 325 Mg Tablet) 325 mg PO DAILYWM [facility] Last Admin: 07/05/23 09:10 Dose: 325 mg Finasteride (Finasteride 5 Mg Tablet) 5 mg PO DAILY [facility] Last Admin: 07/05/23 09:10 Dose: 5 mg Furosemide (Furosemide 20 Mg Tablet) 20 mg PO DAILY [facility] Guaifenesin (Guaifenesin/Dextromethorphan 10 Ml Udc) 10 ml PO Q6HR PRN PRN Reason: Cough Last Admin: 07/04/23 22:18 Dose: 10 ml Remdesivir 100 mg/ Sodium (Chloride) 100 mls @ 200 mls/hr IV 1300 [facility] Stop: 07/07/23 13:29 Last Infusion: 07/04/23 15:30 Dose: Infused Ceftriaxone Sodium 1 gm/ (Sodium Chloride) 100 mls @ 200 mls/hr IV DAILY [facility] Last Infusion: 07/05/23 10:54 Dose: Infused Metoprolol Succinate (Metoprolol Succinate 25 Mg Tablet) 25 mg PO DAILY [facility] Multi-Ingredient Ointment (Zinc Oxide 20% Oint 30 Gm Tube) 1 applic TOP PRN PRN PRN Reason: Skin Care Last Admin: 07/05/23 06:11 Dose: 1 applic Ondansetron HCl (Ondansetron Odt 4 Mg Tablet) 4 mg TL Q6HR PRN PRN Reason: Nausea / Vomiting Ondansetron HCl (Ondansetron 4 Mg/2 Ml Vial) 4 mg IVP Q6HR PRN PRN Reason: Nausea / Vomiting Polyethylene Glycol (Polyethylene Glycol 3350 17 Gm Packet) 17 gm PO DAILY [facility] Last Admin: 07/05/23 17:21 Dose: 17 gm Potassium Chloride (Potassium Chloride 20 Meq Tablet) 20 meq PO BID [facility] Last Admin: 07/05/23 09:11 Dose: 20 meq Senna (Senna 8.6 Mg Tablet) 8.6 - 17.2 mg PO DAILY [facility] Last Admin: 07/05/23 17:22 Dose: 8.6 mg Sodium Chloride (Sodium Chloride Flush 0.9% 10 Ml Syringe) 10 ml IVP 0100,0900,1700 [facility] Last Admin: 07/05/23 17:22 Dose: 10 ml Sodium Chloride (Sodium Chloride Flush 0.9% 10 Ml Syringe) 10 ml IVP PRN PRN PRN Reason: NEEDED PER PROVIDER ORDERS Last Admin: 07/03/23 14:38 Dose: 10 ml Tamsulosin HCl (Tamsulosin 0.4 Mg Capsule) 0.4 mg PO DAILY [facility] Last Admin: 07/05/23 09:10 Dose: 0.4 mg Zolpidem Tartrate (Zolpidem 5 Mg Tablet) 10 mg PO QPM PRN PRN Reason: Insomnia Exam: Temperature is 37.2. Heart rate 57. Blood pressure 142/69. Respirations 20. He is 94% on 2 L. When he was admitted he was on 4 L. Gradually coming down and has been on 2 L yesterday and today. 5 foot 10 inch band, 102 kg. Appears to be moderately overweight. But well- groomed. Hard of hearing. But he will repeat some of the conversation that we are having to let me know that he is aware of what is going on. Supple neck with shotty adenopathy Coarse upper airway sounds. Occasional cough. But no respiratory distress whatsoever. Regular rate and rhythm Abdomen is obese, soft, nontender Extremities with trace edema Laboratory Tests 07/05/23 07/05/23 05:00 05:00 WBC 6.8 Hgb 12.7 L Hct 39.4 L Plt Count 147 Sodium 136 Potassium 3.8 Chloride 103 Carbon Dioxide 23 Anion Gap 10.0 BUN 49 H Creatinine 2.0 H Estimated GFR (MDRD) 32 L Glucose 126 H .Conclusion/Plan - Problem List (1) COVID-19 Conclusion/Plan: Started remdesivir 07/02 and I thought he didnt get a dose 07/03 but he did 07/06 will be be dose #5 Continue Decadron and plan for 10 days. today is Day #3 Droplet contact isolation (2) Respiratory failure Conclusion/Plan: Hypoxemic respiratory failure secondary to COVID-pneumonia, cannot rule out bacterial pneumonia, and component of CHF Contine Oxygen for goal >92% 02 sat. Give remdesivir and Steroid Continue ceftriaxone and azithromycin, Today is day #3/5 ceftriazone and #3/3 azithromycin Given IV Lasix 40 mg for CHF 07/02, and that has been daily since he has been here. And he is on torsemide at home. I hear rhonchi but no rales and he is comfortable on exam, no edema. no JVD Qualifiers: Chronicity: acute Respiratory failure complication: hypoxia Qualified Code(s): J96.01 - Acute respiratory failure with hypoxia (3) Chronic renal insufficiency Conclusion/Plan: Baseline creatinine is between 1.5 and 1.9. On admission he was 2. Today he is 2.0. I am watching him eat and he has good po water/fluid intake.. Will need to balance his need for IV fluids versus fluid overload because of our resuscitation. Continue to monitor daily. Avoid nephrotoxic agents Adjust medications as needed and I will change to po lasix 20 mg from 40 mg IVP today since his creat is up. Qualifiers: Chronic kidney disease stage: unspecified stage Qualified Code(s): N18.9 - Chronic kidney disease, unspecified (4) Congestive heart failure Conclusion/Plan: History of CAD and CHF With worsening shortness of breath, BNP 493,Chest x-ray showed pulmonary congestion On lasix 40 IVP and I will lower to 20 mg po since his creat bumped. Strict ins and O Fluid restriction 1.8 L/day Qualifiers: Heart failure type: unspecified Heart failure chronicity: acute on chronic Qualified Code(s): I50.9 - Heart failure, unspecified (5) Atrial fibrillation Conclusion/Plan: Persistent A-fib, rate controlled Continue metoprolol and Eliquis Telemetry (6) Generalized weakness. This gentleman already has a limited endurance at home. describes him as a down tree. Wakes up at around 11 in the morning. Gets up to eat. Watching TV. Usually back in bed by 7 PM. When he is up, he uses a wheelchair. Will be able to stand and transfer on his own. When he falls the has a system. She will bring one of the wooden dining room chairs to him. He then gets on his knees and uses his elbows to launch his belly onto the chair. Then he turns around and puts his butt on the chair. She then brings in the wheelchair and he gets up. He cannot do that right now. As such I am asking PT and OT to see him and evaluate him. I do encourage nursing to get him up out of bed and into a chair. I would also like him to get a bath/shower before he leaves here. We discussed different nursing homes in the region. The patient is experienced with [facility], and [facility]. Family and he would like him to be in [place]. I am planning for dc on 07/06 once his dose #5 is done. (7) DO NOT RESUSCITATE status Long conversation with his and daughter. Patient is also participating in the conversation. They all agree jackie his POLST form should reflect that he is a DO NOT RESUSCITATE if he has no pulse and is not breathing. They want selective treatment. His legal medical decision maker/POA is his . And the second person would be his daughter Billie Kelly. I will fill out a POLST form with him tomorrow morning.
[2023-07-06 05:10] LABS: EOSINOPHILS % (AUTO) 0.1 %; HCT - HEMATOCRIT 39.6 % (42.0-52.0); HGB - HEMOGLOBIN 13.1 g/dL (14.0-18.0); LYMPHOCYTES # (AUTO) 0.8 10^3/uL (1.5-3.5); LYMPHOCYTES % (AUTO) 11.2 %; MEAN CORPUSCULAR HEMOGLOBIN 31.5 pg (27.0-31.0); MEAN CORPUSCULAR HGB CONC 33.1 g/dL (32.0-36.0); MEAN CORPUSCULAR VOLUME 95.2 fL (80.0-94.0); MEAN PLATELET VOLUME 10.3 fL (7.4-11.4); MONOCYTES # (AUTO) 0.5 10^3/uL (0.0-1.0); MONOCYTES % (AUTO) 7.5 %; NEUTROPHILS # (AUTO) 5.5 10^3/uL (1.5-6.6); NEUTROPHILS % (AUTO) 80.9 %; PLT - PLATELET COUNT 141 10^3/uL (130-450); RED BLOOD COUNT 4.16 10^6/uL (4.70-6.10); RED CELL DISTRIBUTION WIDTH 14.1 % (12.0-15.0); WHITE BLOOD COUNT 6.8 x10^3/uL (4.8-10.8)
[2023-07-06 05:25] LABS: CALCIUM 8.8 mg/dL (8.5-10.3); POTASSIUM 3.8 mmol/L (3.5-4.5)
[2023-07-06] MEDS: METOPROLOL SUCCINATE 25 MG TABLET PO SCH (08:11)
[2023-07-06] MEDS: FUROSEMIDE 20 MG TABLET PO SCH (10:50)
--- NOTE | 2023-07-06 17:49 | PROVIDER PROGRESS NOTE ---
Progress Note 09/05/2023 5:45 PM Continues to improve. He worked with PT today and was able to stand at the side of the bed. Lift up his arms to do circular movements. But he became easily winded short of breath. Dropped his O2 sats. Had to sit in a chair and get his oxygen back on. But the fact that he was able to get out of bed and stand amazed his who says that she finds it difficult to get him to do that at home. He is eating the food here. He has some chest congestion but no chest pain. Temperature is 36.8, heart rate 55. He is having 2.8-second pauses. Supine blood pressure is 137/70. Sitting blood pressure is 130/59. Standing blood pressure is 137/55. Pulse stays consistently in the 50s with this. Respirations are 18 and unlabored He is saturating 95% with 1 L. When he was working with physical therapy he dropped to O2 sat of 85% with room air. He still has a nasal tone of voice, some slight congestion Coarse crackles and occasional squeaking rhonchi but no tachypnea or respiratory distress. 1 cough. Nonproductive. Slow regular rate and rhythm Abdomen is obese, soft, nontender Extremities without edema Laboratory Tests 07/06/23 07/06/23 04:50 04:50 WBC 6.8 Hgb 13.1 L Hct 39.6 L Plt Count 141 Sodium 138 Potassium 3.8 Chloride 107 Carbon Dioxide 23 Anion Gap 8.0 BUN 56 H Creatinine 2.0 H Estimated GFR (MDRD) 32 L Glucose 134 H .Conclusion/Plan - Problem List (1) COVID-19 Conclusion/Plan: Over the last 2 to 3 days he has had slow but steady improvement. Today was a good day and that he was able to get out of bed, and work with PT. But he became hypoxic without effort. Currently eating dinner and comfortable. Started remdesivir 07/02 and I thought he didnt get a dose 3 but he did 3 will be be dose #5 Continue Decadron and plan for 10 days. today is Day #4 Droplet contact isolation (2) Respiratory failure Conclusion/Plan: Hypoxemic respiratory failure secondary to COVID-pneumonia, cannot rule out bacterial pneumonia, and component of CHF Contine Oxygen for goal >92% 02 sat. Complete 5 days of remdesivir, and 10 days of Decadron. Continue ceftriaxone and azithromycin, Today is day #4/5 ceftriazone and #3/3 azithromycin Given IV Lasix 40 mg for CHF 07/02, and that has been daily since he has been here. And he is on torsemide at home. Today I hear minimal crackles. No rhonchi. Same air movement. Plan: I will be stopping his Lasix completely and watch for fluid overload but watching his creatinine bumped today thinks he may be at dry weight now Qualifiers: Chronicity: acute Respiratory failure complication: hypoxia Qualified Code(s): J96.01 - Acute respiratory failure with hypoxia (3) Chronic renal insufficiency Conclusion/Plan: Baseline creatinine is between 1.5 and 1.9. On admission he was 2. For two days he has been at 2.0. I am watching him eat and he has good po water/fluid intake.. Will need to balance his need for IV fluids versus fluid overload because of our resuscitation. Continue to monitor daily. Avoid nephrotoxic agents Adjust medications as needed and I had already change Lasix from IV to p.o. With creatinine still staying up, I will hold his Lasix for the next day. Qualifiers: Chronic kidney disease stage: unspecified stage Qualified Code(s): N18.9 - Chronic kidney disease, unspecified (4) Congestive heart failure Conclusion/Plan: History of CAD and CHF With worsening shortness of breath, BNP 493,Chest x-ray showed pulmonary congestion Is on Lasix IV push up until yesterday. I then changed him to 20 mg p.o. I will hold his Lasix tomorrow and watch his creatinine. Strict ins and O Continue his fluid restriction at 1.8 L a day Qualifiers: Heart failure type: unspecified Heart failure chronicity: acute on chronic Qualified Code(s): I50.9 - Heart failure, unspecified (5) Atrial fibrillation Conclusion/Plan: Persistent A-fib, rate controlled Continue metoprolol and Eliquis. Fortunately he is developing occasional bradycardia with sinus pause of 2.8 seconds. Completely asymptomatic with that. Telemetry to continue. Does have occasional tachycardia that does not last very long. I am a mean to keep him on the metoprolol at this dose for right now. (6) Generalized weakness. This gentleman already has a limited endurance at home. describes him as very sedentary. Wakes up at around 11 in the morning. Gets up to eat. Watching TV. Usually back in bed by 7 PM. When he is up, he uses a wheelchair. Will be able to stand and transfer on his own. When he falls the has a system. She will bring one of the wooden dining room chairs to him. He then gets on his knees and uses his elbows to launch his belly onto the chair. Then he turns around and puts his butt on the chair. She then brings in the wheelchair and he gets up. He cannot do that right now. PT and OT saw him today. They noted that he is hard of hearing and needs those hearing aids. Barriers to learning included the hearing aids, cognitive deficits, and some type of word finding problems. Very deconditioned. Desaturates to 85% on room air with activity and needed 1 L when he was seated back in his chair. He was only able to walk a short distance from the bed to his chair which is 5 feet. Shuffling gait. states that this is pretty near his baseline. So physical therapy recommends that he actually go home with home health PT and bath aide for right now. But if he really cannot get up at home safely he will need rehab placement. (7) DO NOT RESUSCITATE status Long conversation with his and daughter on 07/04. Patient is also participating in the conversation. They all agree jackie his POLST form should reflect that he is a DO NOT RESUSCITATE if he has no pulse and is not breathing. They want selective treatment. His legal medical decision maker/POA is his . And the second person would be his daughter Billie Kelly. Plan to fill out a POLST form today. But I ran out of time. Family is okay with that and I will try again tomorrow morning with them.
[2023-07-07 05:00] LABS: HCT - HEMATOCRIT 42.4 % (42.0-52.0); HGB - HEMOGLOBIN 13.7 g/dL (14.0-18.0); LYMPHOCYTES # (AUTO) 0.6 10^3/uL (1.5-3.5); LYMPHOCYTES % (AUTO) 10.1 %; MEAN CORPUSCULAR HEMOGLOBIN 31.3 pg (27.0-31.0); MEAN CORPUSCULAR HGB CONC 32.3 g/dL (32.0-36.0); MEAN CORPUSCULAR VOLUME 96.8 fL (80.0-94.0); MEAN PLATELET VOLUME 10.2 fL (7.4-11.4); MONOCYTES # (AUTO) 0.4 10^3/uL (0.0-1.0); MONOCYTES % (AUTO) 6.2 %; NEUTROPHILS # (AUTO) 4.9 10^3/uL (1.5-6.6); NEUTROPHILS % (AUTO) 83.5 %; PLT - PLATELET COUNT 131 10^3/uL (130-450); RED BLOOD COUNT 4.38 10^6/uL (4.70-6.10); RED CELL DISTRIBUTION WIDTH 14.2 % (12.0-15.0); WHITE BLOOD COUNT 5.8 x10^3/uL (4.8-10.8)
[2023-07-07 05:13] LABS: CALCIUM 8.8 mg/dL (8.5-10.3); CREATININE 1.9 mg/dL (0.6-1.3); POTASSIUM 4.3 mmol/L (3.5-4.5)
[2023-07-07 08:16] VITALS: BP 152/75; O2SAT 94
[2023-07-07] MEDS: REMDESIVIR 100 MG in SODIUM CHLORIDE 0.9% 100ML 100 ML IV SCH (10:54)
--- NOTE | 2023-07-07 14:32 | Discharge Plan ---
Discharge Plan Problem Reviewed?: Yes Disposition: Home Health Service Condition: Fair Prescriptions: Metoprolol Succinate [Toprol Xl] 25 mg PO DAILY #30 tab Diet: Regular Activity Restrictions: Activity as Tolerated Shower Restrictions: No Driving Restrictions: Yes (no driving) Assistance Devices: Wheelchair, Walker Health Concerns: Mr. Malloy has memory loss and is taken care of by his . He has a history of congestive heart failure and chronic atrial fibrillation. He has a very sedentary lifestyle and sleeps till about 10 or 11 in the morning. Gets up with the help of his . 4 years ago he had a hip replacement and put himself in a wheelchair because he was afraid of falling. He gets up to the wheelchair, and that is what he sits in during the day. Goes to bed around 7 or 7:30 at night. Patient developed congestion of sinuses, and a mild cough with shortness of breath. Home test was positive for COVID so they brought him to the emergency room. He was identified as having very low oxygen, mild congestive heart failure, and mild pneumonia throughout his lungs. He has responded to remdesivir and steroids for the COVID. Just in case he had a bacterial pneumonia we also gave him antibiotics. He has completed 5 days of antibiotics as well. We initially thought he needed to go to a fci because of weakness. But physical therapy worked with him and he is walking 10 feet to the bathroom. Only needed a standby assist. Physical therapy feels he does not need to go to a fci and is recommending he go home with home health. He is now stable to go home. Plan of Treatment: 1. Please see your primary care provider in the next 1 to 2 weeks. 2. Try and work with the physical therapist that comes to your house so that you can get stronger. 3. You are any new medication to slow down your heart rate and lower your blood pressure. Take that once a day. Your primary care provider should take your pulse and blood pressure when you are seen in the office. Care Goals: Because of your memory loss, you really do not have very many care goals. But we would strongly, strongly, strongly encourage you to be more active. Work with your and getting up out of a chair, or out of bed. Work with the physical therapist. Aim for being able to use a walker and walking at least 10 feet at a time. Assessment: Patient has moderate memory loss. Reliant on his and daughter for complete care. Unable to participate in a meaningful way with this care plan. While here a new POLST was filled out today. He is a DO NOT RESUSCITATE. Selective treatments. DPOA is his . This conversation was also had with his daughter and she agrees to the change in pulse. Follow-Up Care: Home Health - RN, Home Health - PT, Home Health - OT, Home Health - ST No Smoking: If you smoke, Please STOP! Call for help.
--- NOTE | 2023-07-07 14:40 | DISCHARGE SUMMARY ---
"Discharge Summary Admit Date: 07/03/23 Discharge Date: 07/07/23 Discharging Provider: Lizzie Stauffer MD Primary Care Provider: Wandy Ann-Marie Code Status: Do Not Attempt Resuscitation Condition at Discharge: Fair Discharge Disposition: 06 Home Health Service - DIAGNOSES Discharge Diagnoses with Status of Each Condition: 1. COVID-19 infection 2. Acute respiratory failure with hypoxia 3. Chronic renal insufficiency 4. Acute on chronic unspecified heart failure 5. Chronic atrial fibrillation. Patient has 2.8-second sinus pauses with metoprolol 6. Generalized weakness Due to self-imposed deconditioning Acute worsening due to COVID infection 7. DO NOT RESUSCITATE status with POLST form filled out on the day of discharge 8. Moderate cognitive deficits indicative of dementia. - HPI History of Present Illness: An 88 years old male with history of CAD s/p CABG, CHF, atrial fibrillation on Eliquis, BPH, iron deficient anemia presented to the ED with complaints of increasing shortness of breath, Generalized weakness, and home COVID test + four days ago. Patient reports he was not vaccinated against COVID. He started to feel ill about 4 days ago, shortness of breath and generalized weakness becomes profound today, he was too weak even to get out out of bed. Denies fever, or chills, no cough, no sputum production. Denies runny nose. No nausea vomiting. No diarrhea no dysuria or frequency. In the ED, Patient was tachypneic, hypoxia with oxygen saturation down to 81% on room air was improved with 3 L of oxygen. Afebrile, mild elevated blood pressure. Labs significant with normal white count, sodium 132, BMP 493, CK4 98, creatinine 2.0 worsened than baseline. Chest x-ray shows patchy opacity. COVID-19 positive. Patient was given Decadron, ceftriaxone and azithromycin in the ED - Past Medical History Cardiovascular: reports: Hypertension, High cholesterol, VT Respiratory: reports: Pneumonia, CPAP use GI: reports: GI bleed : reports: Incontinence HEENT: reports: Chronic hearing loss Musculoskeletal: reports: Gout MRSA Hx?: No - Past Surgical History General: reports: Bowel surgery Cardiovascular: reports: CABG - CONSULTS | PROCEDURES Procedures: Chest x-ray with congestive heart failure and superimposed pneumonia Blood cultures negative after 2 days. However 1 bottle grew out Staphylococcus hominis that we feel is contamination. - HOSPITAL COURSE Hospital Course: (1) COVID-19 Conclusion/Plan: Over 2 to 3 days he had slow and steady improvement. On the he was able to get out of bed and work with physical therapy. Did develop temporary hypoxemia with effort but quickly recovered once in bed. He is currently 94% on room air. And uses CPAP at night. He has completed 5 days of remdesivir and 5 days of Decadron. Taking into context his baseline status, physical therapy felt he was actually better than his baseline status as described by his . As such they recommended he go home with home health PT and OT and that was ordered. (2) Respiratory failure Conclusion/Plan: He completed 5 days of remdesivir and 5 days of Decadron. He also completed 5 days of ceftriaxone and 3 days of azithromycin. He was given Lasix 40 mg IV push for congestive heart failure and fluid overload. Then changed to 20 mg daily. And Lasix was changed from IV to p.o. Lasix was held 2 days before discharge for slight rise in creatinine. Qualifiers: Chronicity: acute Respiratory failure complication: hypoxia Qualified Code(s): J96.01 - Acute respiratory failure with hypoxia (3) Chronic renal insufficiency Conclusion/Plan: Baseline creatinine is between 1.5 and 1.9. On admission he was 2.0. At discharge he is 2.2. Lasix has been stopped. He is on torsemide 10 mg daily at home. I am suggesting that he go to 5 mg every other day. When he sees his primary care provider BMP and BNP should be checked in the office.He is eating 100% of his food. Oral intake is anywhere between 150 to 400 cc with water. I would strongly encourage him to maintain that intake at home. Qualifiers: Chronic kidney disease stage: unspecified stage Qualified Code(s): N18.9 - Chronic kidney disease, unspecified (4) Congestive heart failure Conclusion/Plan: History of CAD and CHF With worsening shortness of breath, BNP 493,Chest x-ray showed pulmonary co ngestion He was on Lasix 40 mg IV push, we watched his intake and output to make sure fluid balance was not severely positive, and he was restricted to 1.8 L of fluid a day. He did not drink that amount of fluids. Lasix was eventually discontinued because of a bump in creatinine. I am asking his to decrease the torsemide from 1 tablet daily to half a tablet every other day. Encourage water intake to anywhere between 750 cc and a liter a day. Qualifiers: Heart failure type: unspecified Heart failure chronicity: acute on chronic Qualified Code(s): I50.9 - Heart failure, unspecified (5) Atrial fibrillation Conclusion/Plan: Persistent A-fib, rate controlled He was continued on metoprolol and Eliquis. He developed occasional bradycardia with sinus pause of 2.8 seconds. Completely asymptomatic with that. Was monitored on telemetry. He did have 1 episode of tachycardia which resolved quickly on its own. Not necessarily with activity or conversation. Patient was asymptomatic. On admission he was on 50 mg of metoprolol. At discharge I cut his metoprolol to 25 mg a day because of the bradycardia and 2.8-second pauses. He should be reevaluated his primary care provider office to make sure pulse rate is stable. (6) Generalized weakness. This gentleman already has a limited endurance at home. describes him as very sedentary. Wakes up at around 11 in the morning. Gets up to eat. Watching TV. Usually back in bed by 7 PM. When he is up, he uses a wheelchair. Will be able to stand and transfer on his own. When he falls the has a system. She will bring one of the wooden dining room chairs to him. He then gets on his knees and uses his elbows to launch his belly onto the chair. Then he turns around and puts his butt on the chair. She then brings in the wheelchair and he gets up. He cannot do that right now. PT and OT saw him . They noted that he is hard of hearing and needs those hearing aids. Barriers to learning included the hearing aids, cognitive deficits, and some type of word finding problems. Very deconditioned. Desaturates to 85% on room air with activity and needed 1 L when he was seated back in his chair. He was only able to walk a short distance from the bed to his chair which is 5 feet. Shuffling gait. states that this is pretty near his baseline. So physical therapy recommends that he actually go home with home health PT and bath aide for right now. (7) DO NOT RESUSCITATE status Long conversation with his and daughter on 07/04. Patient is also participating in the conversation. They all agree jackie his POLST form should re flect that he is a DO NOT RESUSCITATE if he has no pulse and is not breathing. They want selective treatment. His legal medical decision maker/POA is his . And the second person would be his daughter Billie Kelly. POLST form filled out on day of discharge for DO NOT RESUSCITATE, limited intervention.I handed the original to his , and a copy was made for our electronic medical record Exam: A very pleasant and placid elderly gentleman who is morbidly obese. Many of our conversations had to be held over the high-volume of the TV because he spent his hours watching TV or reading the paper. When , daughter and I would discuss his health, progress, or his POLST form, he would occasionally look over and listen to his but did not actively participate in the conversation. Temperature 36.5, heart rate 51, blood pressure 152/75, respirations 16, 94% on room air. Has some nasal congestion and rhinorrhea but not severe. No tachypnea and comfortable breast. Shotty neck adenopathy. But supple. No JVD. Lungs have coarse upper airway sounds. Occasional crackles. He is very se dentary. When I have him sit up, take a deep breath and hold it. Then I have him cough, crackles disappear as you have rhonchi. There is no tachypnea, comfortable at rest. No use of accessory muscles. Abdomen is obese, soft, nontender with normal bowel sounds Extremities with trace edema. Neurologically moderately deaf, moderately Very impaired. He is alert and oriented to person, place. But not time or very poor insight into situation. No focal deficits. But severe generalized weakness requiring moderate assist. Greater than 30 minutes was spent coordinating discharge This document was made in part using voice recognition software. While efforts are made to proofread this document, sound alike and grammatical errors may occur. - ALLERGIES Allergies/Adverse Reactions: Allergies Allergy/AdvReac Type Severity Reaction Status Date / Time lisinopril Allergy Unknown Verified 07/03/23 07:55 - MEDICATIONS Home Medications: Ambulatory Orders Medication Instructions Recorded Confirmed Citalopram [CeleXA] 40 mg PO DAILY 10/03/14 07/04/23 Ferrous Sulfate, Dried [Iron] See Rx Instructions .ROUTE .COMPLEX 10/03/14 07/04/23 Finasteride 5 mg PO DAILY 10/03/14 07/04/23 [place]-3 Fatty Acids/Fish Oil [Fish See Rx Instructions .ROUTE .COMPLEX 10/03/14 07/04/23 Oil 1,000 mg Capsule] Tamsulosin HCl [Flomax] 0.4 mg PO DAILY 10/03/14 07/04/23 Glucosamine HCl/Chondroitin [place] See Rx Instructions .ROUTE .COMPLEX 08/18/17 07/04/23 [Endur-Flex Sr Tablet] Multivitamin [Multivitamins] 1 each PO DAILY 08/18/17 07/04/23 Aspirin [Verdon Aspirin] 81 mg PO DAILY 04/08/21 07/04/23 Melatonin See Rx Instructions .ROUTE .COMPLEX 04/08/21 07/04/23 buPROPion HCL [Bupropion Xl] 150 mg PO DAILY 04/08/21 07/04/23 Ascorbic Acid [Vitamin C] See Rx Instructions .ROUTE .COMPLEX 07/04/23 07/04/23 Atorvastatin Calcium 40 mg PO HS 07/04/23 07/04/23 Calcium Carbonate [Calcium] See Rx Instructions .ROUTE .COMPLEX 07/04/23 07/04/23 allopurinoL [Zyloprim] 100 mg PO DAILY 07/04/23 07/04/23 Metoprolol Succinate [Toprol Xl] 25 mg PO DAILY #30 tab 07/07/23 Torsemide 10 mg PO DAILY #0 07/07/23 07/04/23 - LABS Result Diagrams: 07/07/23 04:37 07/07/23 04:37 - SEPSIS Current Stage of Sepsis: Ruled out"
== END 2023-07-07 15:08 | disposition home health service (06) | DRG 177 ==
LOC: EDUNIT# → ED 07:43 → MS3 10:58
PROVIDERS: ADMIT Internal Medicine; ATTEND Specialist
PROC: XW033E5 Introduction of Remdesivir Anti-infective into Peripheral Vein, Percutaneous Approach, New Technology Group 5 (ICD-10-PCS; principal; 2023-07-03)
PROC: 3E0333Z Introduction of Anti-inflammatory into Peripheral Vein, Percutaneous Approach (ICD-10-PCS; 2023-07-03)
PROC: 8E0ZXY6 Isolation (ICD-10-PCS; 2023-07-03)
DX: U07.1 COVID-19 (principal); J12.82 Pneumonia due to coronavirus disease 2019; J96.91 Respiratory failure, unspecified with hypoxia; J18.9 Pneumonia, unspecified organism; J96.01 Acute respiratory failure with hypoxia; I48.91 Unspecified atrial fibrillation; I11.0 Hypertensive heart disease with heart failure; J15.9 Unspecified bacterial pneumonia; E87.1 Hypo-osmolality and hyponatremia; I48.19 Other persistent atrial fibrillation; I13.0 Hypertensive heart and chronic kidney disease with heart failure and stage 1 through stage 4 chronic kidney disease, or unspecified chronic kidney disease; I50.9 Heart failure, unspecified; N18.9 Chronic kidney disease, unspecified; I25.10 Atherosclerotic heart disease of native coronary artery without angina pectoris; Z28.310 Unvaccinated for COVID-19; N40.0 Benign prostatic hyperplasia without lower urinary tract symptoms; R00.0 Tachycardia, unspecified; D50.9 Iron deficiency anemia, unspecified; I71.21 Aneurysm of the ascending aorta, without rupture; R00.1 Bradycardia, unspecified; R41.89 Other symptoms and signs involving cognitive functions and awareness; R53.1 Weakness; M10.9 Gout, unspecified; I25.2 Old myocardial infarction; E78.00 Pure hypercholesterolemia, unspecified; H91.90 Unspecified hearing loss, unspecified ear; Z87.01 Personal history of pneumonia (recurrent); Z95.1 Presence of aortocoronary bypass graft; Z79.01 Long term (current) use of anticoagulants; Z66 Do not resuscitate; Z91.81 History of falling; Z97.4 Presence of external hearing-aid
CPT/HCPCS: 36415; 71045; 80048; 80053; 81003; 82550; 82803; 83735; 83880; 84145; 85025; 87040; 87077; 87150; 87181; 87633; 93005; 96374; 96375; 97162; 97166; 99285; A9270; J1650; 81001; 87086

== ENCOUNTER 2023-07-14 15:38 | Outpatient (CLI) | payer MEDICARE, OTHER | END 2023-07-14 23:59 | disposition EMS.NT | LOC: EMS 15:38 | DX: Z03.89 Encounter for observation for other suspected diseases and conditions ruled out (principal) ==

== ENCOUNTER 2023-09-09 00:48 | Outpatient (CLI) | payer MEDICARE, OTHER | END 2023-09-09 23:59 | disposition EMS.NT | LOC: EMS 00:48 | DX: Z03.89 Encounter for observation for other suspected diseases and conditions ruled out (principal) ==

== ENCOUNTER 2023-09-11 08:00 | Outpatient (CLI) | payer MEDICARE, OTHER ==
--- NOTE | 2023-09-11 15:19 | XRAY Report ---
PROCEDURE: Lumbar Spine 2-3V INDICATIONS: FALL/LOW BACK PAIN TECHNIQUE: 3 views of the lumbar spine were acquired. COMPARISON: CT 10/03/2014 FINDINGS: Bones: Mild endplate deformities are seen in the lumbar vertebral bodies, no acute appearing fracture or traumatic subluxation. The lower thoracic vertebral bodies are not well evaluated due to obliquit y. Overall moderate degenerative changes. Soft tissues: Vascular calcifications. Hip and sacroiliac degenerative changes. Partially seen left h ip arthroplasty. Moderate to large fecal and gas burden in the bowel. Cholecystectomy clips. IMPRESSION: No acute vertebral body height loss by radiography in the lumbar spine. The lower thoracic vertebral bodies however are not well evaluated, consider dedicated thoracic imaging or cross-sectional imaging with CT or MRI if there is clinical further concern. Overall moderate degenerative changes. Limited radiograph due to obliquity. Reviewed by: Noel Sloan MD on 09/11/2023 3:18 PM PDT Approved by: Noel Sloan MD on 09/11/2023 3:18 PM PDT Station ID: [id number]
== END 2023-09-11 23:59 | disposition home or self-care (01) ==
LOC: DI.S 08:00
PROVIDERS: ATTEND Physician Assistant Medical
DX: M47.816 Spondylosis without myelopathy or radiculopathy, lumbar region (principal); R82.90 Unspecified abnormal findings in urine
CPT/HCPCS: 87086

== ENCOUNTER 2023-09-26 07:27 | Outpatient (CLI) | payer MEDICARE, OTHER | END 2023-09-26 23:59 | disposition EMS.NT | LOC: EMS 07:27 | DX: M25.562 Pain in left knee (principal) ==

== ENCOUNTER 2023-10-03 12:10 | Outpatient (CLI) | payer MEDICARE, OTHER | END 2023-10-03 23:59 | disposition EMS.NT | LOC: EMS 12:10 | DX: Z03.89 Encounter for observation for other suspected diseases and conditions ruled out (principal) ==

== ENCOUNTER 2023-10-31 12:15 | Outpatient (CLI) | payer MEDICARE, OTHER | END 2023-10-31 23:59 | disposition short-term general hospital (02) | LOC: EMS 12:15 | DX: R07.9 Chest pain, unspecified (principal); R53.83 Other fatigue; R05.9 Cough, unspecified | CPT/HCPCS: A0425; A0429 ==

== ENCOUNTER 2024-04-23 21:50 | Inpatient (IN) ==
--- NOTE | 2024-04-23 21:51 | ED Physician Documentation ---
PD HPI DYSPNEA Stated complaint Stated Complaint: SOA Chief complaint Chief Complaint: Resp Additional information Additional information: BIBA. HPI from patient, EMS. Patient complains of dyspnea, shortness of breath since waking up this morning, steadily worsening during the course of the day. Past medical history includes CHF. He says he does not use oxygen at home although he does use CPAP at night for sleep apnea. Denies fevers. Denies any pain (including, specifically, chest pain). Denies leg swelling. Meds/Allgy Home Medications Ambulatory Orders Medication Instructions Recorded Confirmed citalopram 10 mg tablet 40 mg PO DAILY 10/03/14 02/28/24 ferrous sulfate, dried 159 mg (45 See Rx Instructions .Route .COMPLEX 10/03/14 02/28/24 mg iron) tablet,extended release (iron ER) finasteride 5 mg tablet 5 mg PO DAILY 10/03/14 02/28/24 omega-3 fatty acids-fish oil 340 See Rx Instructions .Route .COMPLEX 10/03/14 02/28/24 mg-1,000 mg capsule (Fish Oil) tamsulosin 0.4 mg capsule (Flomax) 0.4 mg PO DAILY 10/03/14 02/28/24 glucosamine ER 500 mg-chondroitin See Rx Instructions .Route .COMPLEX 08/18/17 02/28/24 200 mg tablet,extended release (Endur-Flex) multivitamin 1 ea PO DAILY 08/18/17 02/28/24 aspirin 81 mg chewable tablet (St 81 mg PO DAILY 04/08/21 02/28/24 Daryl Aspirin) bupropion HCl 150 mg 24 hr tablet, 150 mg PO DAILY 04/08/21 02/28/24 extended release melatonin 3 mg capsule See Rx Instructions .Route .COMPLEX 04/08/21 02/28/24 allopurinol 100 mg tablet 100 mg PO DAILY 07/04/23 02/28/24 ascorbic acid (vitamin C) 500 mg See Rx Instructions .Route .COMPLEX 07/04/23 02/28/24 chewable tablet (C-500) atorvastatin 40 mg tablet 40 mg PO HS 07/04/23 02/28/24 calcium carbonate See Rx Instructions .Route .COMPLEX 07/04/23 02/28/24 torsemide 10 mg tablet 10 mg PO DAILY ##0 07/07/23 02/28/24 acetaminophen 300 mg-codeine 30 mg 1 tab PO BID PRN pain #14 tabs 02/28/24 02/28/24 tablet Allergies Allergies Allergy/AdvReac Type Severity Reaction Status Date / Time lisinopril Allergy Unknown Verified 04/23/24 21:58 [facility] Medical History Medical History (Updated 04/24/24 @ 00:35 by Pavan Downs MD) Fall Chronic renal insufficiency Congestive heart failure Atrial fibrillation Lewy body dementia Social History Social History Smoking Status: Never smoker If you are a former smoker, when did you quit? (Date/Year): 1974 Number of Years Smoked: 4 How many cigarettes a day do you smoke? (20 cigarettes=1 Pk): 10 Second hand tobacco smoke exposure: No Do you dip or chew tobacco?: No Do you vape?: No Patient requests smoking cessation consult: No Initiate information on smoking cessation: No Relationship: Level: Independent Home Mobility Equipment: Wheelchair Do you feel safe in your home environment?: Yes Suffered physical, verbal, emotional, or financial abuse?: No History of Abuse: No Frequency: Daily Number of Amount/day: 2 Substance Use: denies use POLST Patient has POLST: Yes Exam Constitutional normal general appearance, no apparent distress and alert mild tachypnea. very [place] Cardiovascular normal heart rate noted, rhythm abnormal (irregular), no rub, no murmur and no JVD Gastrointestinal abdomen soft to palpation and nontender to palpation Psychiatry mental status grossly normal Skin skin color normal Results Vitals Vitals: Vital Signs - 24 hr 04/23/24 21:54 04/23/24 22:40 04/23/24 23:00 Temperature 36.9 C Temperature Source Temporal Artery Scan Pulse Rate 107 H 90 Respiratory Rate 22 20 Blood Pressure 131/84 H 143/87 H O2 Saturation 93 93 97 O2 Source Room air Room air Nasal cannula If not protocol: Oxygen Flow, liters/minute 2 Pain Intensity 4 04/23/24 23:05 04/23/24 23:05 Temperature Temperature Source Pulse Rate Respiratory Rate Blood Pressure O2 Saturation 86 L 96 O2 Source Room air Nasal cannula If not protocol: Oxygen Flow, liters/minute 2 Pain Intensity Oxygen O2 Source Nasal cannula EKG (time done) 23:46: EKG releavant findings:: EKG personally interpreted by author of this note. Relevant findings are: Rate: Rate (enter#) (105) Rhythm: Atrial fibrillation [place]: LAD QRS: LBBB Ischemia: Normal ST segments and Q waves (II, III, aVF) Labs Labs: Laboratory Tests 04/23/24 04/23/24 22:13 22:47 WBC 8.2 RBC 4.49 L Hgb 13.3 L Hct 41.4 L MCV 92.2 MCH 29.6 MCHC 32.1 RDW 15.9 H Plt Count 229 MPV 9.3 Neut # (Auto) 6.0 Lymph # (Auto) 1.3 L [place] # (Auto) 0.7 Eos # (Auto) 0.1 Baso # (Auto) 0.0 Absolute Nucleated RBC 0.00 Nucleated RBC % 0.0 D-Dimer 396.3 H Sodium 136 Potassium 4.2 Chloride 102 Carbon Dioxide 27 Anion Gap 7.0 BUN 27 H Creatinine 1.6 H Estimated GFR (MDRD) 41 L Glucose 78 Calcium 8.7 Total Bilirubin 0.7 AST 29 ALT 27 Alkaline Phosphatase 165 H Troponin I High Sens 28.0 H* B-Natriuretic Peptide 1473 H Total Protein 6.2 L Albumin 2.8 L Globulin 3.4 Albumin/Globulin Ratio 0.8 L Lipase 45 Nasal Adenovirus (PCR) NOT DETECTED Nasal B. parapertussis DNA (PCR) NOT DETECTED Nasal Coronavir 229E PCR NOT DETECTED Nasal Coronavir HKU1 PCR NOT DETECTED Nasal Coronavir NL63 PCR NOT DETECTED Nasal Coronavir OC43 PCR NOT DETECTED Nasal Enterovir/Rhinovir PCR NOT DETECTED Nasal Influenza B PCR NOT DETECTED Nasal Influenza A PCR NOT DETECTED Nasal Parainfluen 1 PCR NOT DETECTED Nasal Parainfluen 2 PCR NOT DETECTED Nasal Parainfluen 3 PCR NOT DETECTED Nasal Parainfluen 4 PCR NOT DETECTED Nasal RSV (PCR) NOT DETECTED Nasal B.pertussis DNA PCR NOT DETECTED Nasal C.pneumoniae (PCR) NOT DETECTED Riki Human Metapneumo PCR NOT DETECTED Nasal M.pneumoniae (PCR) NOT DETECTED Nasal SARS-CoV-2 (PCR) NOT DETECTED Rads (name of study) CXR: Relevant Findings:: Prelim report reviewed, EMP independent interpretation of test (I reviewed these images and my interpretation is diffuse increased interstitial marking c/w CHF, right pleural effusion) and See rad report PD Medical Decision Making ED course Complexity details: reviewed results, re-evaluated patient, considered differential and d/w patient ED course: Unremarkable CBC. Elevated BUN, creatinine, GFR but these results are consistent with his baseline based on multiple previous results in [facility]. Otherwise no notable findings on ER abdominal panel. High-sensitivity troponin is mildly elevated (27.6). BNP is markedly elevated (1473). Chest x-ray as noted, above, with findings consistent with pulmonary edema and right pleural effusion. Afebrile and normal white blood cell count. Respiratory PCR panel is negative for the viruses tested on this panel. He is given 60 mg IV Lasix and I discussed this case with the [facility] telehealth practitioner on duty who accepts patient to [facility] for further testing and treatment. Discharge Plan Discharge Patient Disposition: 66 [facility] DC/Xfer Condition: Fair Clinical Impression: Congestive heart failure (CHF) Qualifiers: Heart failure type: unspecified Heart failure chronicity: acute Qualified Code(s): I50.9 - Heart failure, unspecified Interventions: ED Admission Assessment Last Done: 04/24/24 04:30
[2024-04-23 22:19] LABS: BASOPHILS % (AUTO) 0.5 %; EOSINOPHILS # (AUTO) 0.1 10^3/uL (0.0-0.7); EOSINOPHILS % (AUTO) 1.3 %; HCT - HEMATOCRIT 41.4 % (42.0-52.0); HGB - HEMOGLOBIN 13.3 g/dL (14.0-18.0); LYMPHOCYTES # (AUTO) 1.3 10^3/uL (1.5-3.5); LYMPHOCYTES % (AUTO) 16.4 %; MEAN CORPUSCULAR HEMOGLOBIN 29.6 pg (27.0-31.0); MEAN CORPUSCULAR HGB CONC 32.1 g/dL (32.0-36.0); MEAN CORPUSCULAR VOLUME 92.2 fL (80.0-94.0); MEAN PLATELET VOLUME 9.3 fL (7.4-11.4); MONOCYTES # (AUTO) 0.7 10^3/uL (0.0-1.0); MONOCYTES % (AUTO) 8.6 %; NEUTROPHILS % (AUTO) 72.8 %; PLT - PLATELET COUNT 229 10^3/uL (130-450); RED BLOOD COUNT 4.49 10^6/uL (4.70-6.10); RED CELL DISTRIBUTION WIDTH 15.9 % (12.0-15.0); WHITE BLOOD COUNT 8.2 x10^3/uL (4.8-10.8)
[2024-04-23 22:40] LABS: ALBUMIN 2.8 g/dL (3.2-5.5); ALBUMIN/GLOBULIN RATIO 0.8 (1.0-2.2); BILIRUBIN,TOTAL 0.7 mg/dL (0.2-1.0); CALCIUM 8.7 mg/dL (8.5-10.3); CREATININE 1.6 mg/dL (0.6-1.3); POTASSIUM 4.2 mmol/L (3.5-4.5); TOTAL PROTEIN 6.2 g/dL (6.4-8.9)
[2024-04-23 23:38] LABS: B. PARAPERTUSSIS- RESP PCR PAN NOT DETECTED; B. PERTUSSIS- RESP PCR PANEL NOT DETECTED; C. PNEUMONIAE- RESP PCR PANEL NOT DETECTED; CORONAVIRUS 229E-RESP PCR NOT DETECTED; CORONAVIRUS HKU1-RESP PCR NOT DETECTED; CORONAVIRUS NL63-RESP PCR NOT DETECTED; CORONAVIRUS OC43-RESP PCR NOT DETECTED; HUMAN METAPNEUMOVIRUS NOT DETECTED; INFLUENZA A- RESP PCR PANEL NOT DETECTED; INFLUENZA B - RESP PCR PANEL NOT DETECTED; M. PNEUMONIAE- RESP PCR PANEL NOT DETECTED; PARAINFLUENZA VIRUS 1 NOT DETECTED; PARAINFLUENZA VIRUS 2 NOT DETECTED; PARAINFLUENZA VIRUS 4 NOT DETECTED; RHINOVIRUS/ENTEROVIRUS NOT DETECTED; RSV- RESP PCR PANEL NOT DETECTED; SARS-CoV-2 -RESP PCR PANEL NOT DETECTED
[2024-04-23] MEDS: FUROSEMIDE 40 MG/4 ML VIAL IVP STA (23:41)
[2024-04-24] MEDS ORDERED: ACETAMINOPHEN 325 MG TABLET PO PRN (00:37)
--- NOTE | 2024-04-24 00:51 | HISTORY & PHYSICAL EXAMINATION ---
Chief Complaint Chief Complaint Chief Complaint: shortness of breath History of Present Illness Admitted From Admitted From:: ER History Obtained From Records Reviewed: Yes History obtained from: patient, , RN, ER doc Exam Limitations: dementia History of Present Illness HPI Comment/Other: 89 yo M who presented with shortness of breath. He states yesterday morning he developed trouble breathing, his is present and reports his breathing has been steadily worsening over weeks. He has had chest xrays over this time showing fluid but not a lot. The doctor at the time said the fluid was there, she increased his torsemide with half a pill and added potassium per his instruction for over a week. She states it has gradually continued to get worse. He requested that she call 911 which she states is unusual for him. says she caught something going around like a chest cold but she did not get tested. He has not had flu shot and last covid booster this past year. He states they are in a hospital room, he states it is 2025, he knows his wifes name is Shonna. In ER, he received Lasix 60mg IV once. Of note, he had cxr imaging 03/18 for tachypnea which revealed moderate unchanged R pleural effusion, unchanged interstitial thickening concerning for viral pneumonia vs moderate pulmonary edema compared to 02/27. [facility] Medical History Medical History (Updated 04/24/24 @ 00:35 by Pavan Downs MD) Fall Chronic renal insufficiency Congestive heart failure Atrial fibrillation Lewy body dementia Social History Social History Smoking Status: Former smoker If you are a former smoker, when did you quit? (Date/Year): 1974 Number of Years Smoked: 4 How many cigarettes a day do you smoke? (20 cigarettes=1 Pk): 10 Do you dip or chew tobacco?: No Patient requests smoking cessation consult: No Initiate information on smoking cessation: No Relationship: Level: Independent Home Mobility Equipment: Walker and Wheelchair Do you feel safe in your home environment?: Yes Suffered physical, verbal, emotional, or financial abuse?: No History of Abuse: No Frequency: Daily Number of Amount/day: 2 POLST Patient has POLST: Yes POLST Status: DNR Meds/Allgy Home Medications Ambulatory Orders Medication Instructions Recorded Confirmed citalopram 10 mg tablet 40 mg PO DAILY 10/03/14 02/28/24 ferrous sulfate, dried 159 mg (45 See Rx Instructions .Route .COMPLEX 10/03/14 02/28/24 mg iron) tablet,extended release (iron ER) finasteride 5 mg tablet 5 mg PO DAILY 10/03/14 02/28/24 omega-3 fatty acids-fish oil 340 See Rx Instructions .Route .COMPLEX 10/03/14 02/28/24 mg-1,000 mg capsule (Fish Oil) tamsulosin 0.4 mg capsule (Flomax) 0.4 mg PO DAILY 10/03/14 02/28/24 glucosamine ER 500 mg-chondroitin See Rx Instructions .Route .COMPLEX 08/18/17 02/28/24 200 mg tablet,extended release (Endur-Flex) multivitamin 1 ea PO DAILY 08/18/17 02/28/24 aspirin 81 mg chewable tablet (St 81 mg PO DAILY 04/08/21 02/28/24 Daryl Aspirin) bupropion HCl 150 mg 24 hr tablet, 150 mg PO DAILY 04/08/21 02/28/24 extended release melatonin 3 mg capsule See Rx Instructions .Route .COMPLEX 04/08/21 02/28/24 allopurinol 100 mg tablet 100 mg PO DAILY 07/04/23 02/28/24 ascorbic acid (vitamin C) 500 mg See Rx Instructions .Route .COMPLEX 07/04/23 02/28/24 chewable tablet (C-500) atorvastatin 40 mg tablet 40 mg PO HS 07/04/23 02/28/24 calcium carbonate See Rx Instructions .Route .COMPLEX 07/04/23 02/28/24 torsemide 10 mg tablet 10 mg PO DAILY ##0 07/07/23 02/28/24 acetaminophen 300 mg-codeine 30 mg 1 tab PO BID PRN pain #14 tabs 02/28/24 02/28/24 tablet Allergies Allergies Allergy/AdvReac Type Severity Reaction Status Date / Time lisinopril Allergy Unknown Verified 04/23/24 21:58 Review of Systems A comprehensive ROS was completed, pertinent positives and negatives are noted in the HPI and all other systems reviewed negative. Exam Exam General: awake, no acute distress Lungs: diffuse expiratory wheezes Heart: regular rate, rhythm Abdomen: Soft, nontender, nondistended, normal bowel sounds Musculoskeletal: Normal range of motion and strength, No tenderness Skin: Skin is warm, dry and pink; 1+ b/l LE edema Neurologic: alert, oriented, [place] Conclusion/Plan Problem List (1) Congestive heart failure (CHF): Qualifiers: Heart failure chronicity: acute Heart failure type: unspecified Q ualified Code(s): I50.9 - Heart failure, unspecified (2) Respiratory failure: Qualifiers: Chronicity: acute Respiratory failure complication: hypoxia Qualified Code(s): J96.01 - Acute respiratory failure with hypoxia (3) Pulmonary edema: Qualifiers: Chronicity: acute Qualified Code(s): J81.0 - Acute pulmonary edema Plan 1. Acute hypoxic respiratory failure per ER, O2 down to 86% on RA; viral panel neg 2. Acute on chronic diastolic heart failure, HFpEF echo 2020 with EF 50-55%; recd IV Lasix in ER, unknown u/o so far; also with hypoalbuminemia so will give IV albumin 3. Elevated alk phos - trend 4. Elevated troponin suspect secondary to demand ischemia from hypoxia; trend 5. Recent falls PT/OT 6. BPH 7. Depression 8. Lewy body dementia 9. CKD3 cr appears at baseline 10. Atrial fibrillation 11. Overweight 12. RAMA on CPAP 13. VTE prophylaxis heparin 14. Dispo admit to med/surg tele Code status discussed, he wishes to be DNR/DNI without chest compressions or intubation. Discussed plan of care with patient, his and his bedside RN. Case discussed at length with ER provider. Notes reviewed. This H&P was accomplished using Telemedicine services via [facility] and assistance for bedside assessment was carried out, interpreted and reported to me by the bedside nurse. Time spent 75min educating /interviewing patient, reviewing chart and coordinating care for patient. Lab Results 04/23/24 22:13 04/23/24 22:13 Diagnostic Imaging Results Diagnostic Imaging Results Comments: discussed CXR results with ER doc as unable to view imaging directly and official radiology read not available at time of discussion. Telemedicine Consult Details Provider Location & Consult Time Telemedicine consultation conducted via videoconferencing?: Yes List names and roles of persons who participated in consult:: ER provider, RN, , patient, myself Telemedicine provider location:: [place] Family History Family History Family History Comment/Other: significant cardiac history, mother passed of MS when he was 1 day old; father passed of heart disease
--- NOTE | 2024-04-24 01:08 | XRAY Report ---
PROCEDURE: XR Chest 2V INDICATIONS: dyspnea TECHNIQUE: 3 views of the chest were acquired. COMPARISON: Chest radiograph 03/18/2024 FINDINGS: Surgical changes and devices: Median sternotomy wire. Mediastinal surgical clips. Lungs and pleura: No pneumothorax. Moderate right pleural effusion. Costophrenic angle incompletely visualized. No significant left pleural effusion. Bilateral diffuse lung disease. Mediastinum: Mediastinal contours appear normal. Heart border is obscured. Bones and chest wall: No suspicious bony lesions. Overlying soft tissues appear unremarkable. IMPRESSION: Moderate right pleural effusion. Bilateral diffuse lung disease, increased since prior radiograph . Findings may represent pulmonary edema in the setting of CHF. Superimposed infection cannot be excluded. Reviewed by: Elaine Bravo MD, PhD on 04/24/2024 1:06 AM PST Approved by: Elaine Bravo MD, PhD on 04/24/2024 1:06 AM [facility] Station ID: [id number]
[2024-04-24] MEDS: ALBUMIN 25% 12.5 GM/50 ML VIAL IV SCH (02:04)
[2024-04-24] MEDS: SODIUM CHLORIDE FLUSH 0.9% 10 ML SYRINGE IVP SCH (02:10)
[2024-04-24 06:15] LABS: ALBUMIN 3.1 g/dL (3.2-5.5); ALBUMIN/GLOBULIN RATIO 1.1 (1.0-2.2); BILIRUBIN,TOTAL 0.9 mg/dL (0.2-1.0); CALCIUM 8.4 mg/dL (8.5-10.3); CREATININE 1.7 mg/dL (0.6-1.3); POTASSIUM 3.8 mmol/L (3.5-4.5); TOTAL PROTEIN 5.9 g/dL (6.4-8.9)
[2024-04-24] MEDS: HEPARIN 5,000 UNIT/ML VIAL SUBQ SCH (10:18)
[2024-04-24] MEDS: FUROSEMIDE 40 MG/4 ML VIAL IVP SCH (10:19)
[2024-04-24] MEDS: TAMSULOSIN 0.4 MG CAPSULE PO SCH (10:19)
[2024-04-24] MEDS: ONDANSETRON 4 MG/2 ML VIAL IVP PRN (11:11)
--- NOTE | 2024-04-24 13:28 | PHARMACY PROGRESS NOTE ---
Best Possible Medication History Admit Date and Time: 04/24/24 0038 Home Medications Medication Instructions Recorded Confirmed Type ferrous sulfate, dried 159 mg (45 See Rx Instructions .Route .COMPLEX 10/03/14 04/24/24 History mg iron) tablet,extended release (iron ER) finasteride 5 mg tablet 5 mg PO DAILY 10/03/14 04/24/24 History omega-3 fatty acids-fish oil 340 1 cap PO DAILY 10/03/14 04/24/24 History mg-1,000 mg capsule (Fish Oil) glucosamine ER 500 mg-chondroitin 1 tab PO DAILY 08/18/17 04/24/24 History 200 mg tablet,extended release (Endur-Flex) multivitamin 1 ea PO DAILY 08/18/17 04/24/24 History aspirin 81 mg chewable tablet (St 81 mg PO DAILY 04/08/21 04/24/24 History Daryl Aspirin) bupropion HCl 150 mg 24 hr tablet, 150 mg PO DAILY 04/08/21 04/24/24 History extended release melatonin 3 mg capsule 3 mg PO HS PRN sleep 04/08/21 04/24/24 History allopurinol 100 mg tablet 50 mg PO DAILY 07/04/23 04/24/24 History ascorbic acid (vitamin C) 500 mg See Rx Instructions .Route .COMPLEX 07/04/23 04/24/24 History chewable tablet (C-500) atorvastatin 40 mg tablet 40 mg PO HS 07/04/23 04/24/24 History calcium carbonate 600 mg PO DAILY 07/04/23 04/24/24 History citalopram 40 mg tablet 40 mg PO DAILY 04/24/24 04/24/24 History torsemide 10 mg tablet 10 mg PO DAILY 04/24/24 04/24/24 History Processed by: Pharmacy (Medication Reconciliation completed by fiber technicianCiara) Medications reviewed in ED?: No Medication History completed: Yes Patient Interview: Completed Secondary Source(s): Spouse/Significant other and Insurance records [facility] Statement: As the person ultimately responsible for medication therapy, providers are able to order a medication from an existing home medication list in [facility] via the "Reconcile Routine" prior to Confirmation of that medication by it desktop support technician. Such practice is discouraged except when the physician, in their clinical judgment, deems that a medical need exists for a medication without regard to previous use.
--- NOTE | 2024-04-24 13:41 | PT Plan of Care ---
Medical/Surgical Past History Past History Medical History (Updated 04/24/24 @ 00:35 by Pavan Downs MD) Fall Chronic renal insufficiency Congestive heart failure Atrial fibrillation Lewy body dementia
--- NOTE | 2024-04-24 19:16 | XRAY Report ---
PROCEDURE: XR Abdomen 1 V INDICATIONS: Nausea/vomiting TECHNIQUE: One view of the abdomen acquired. COMPARISON: CT abdomen and pelvis dated 10/03/2014 FINDINGS: Surgical changes and devices: Left hip arthroplasty. Bowel: Bowel gas pattern is nonobstructive. Normal fecal burden identified. Soft tissues: No suspicious abdominal calcifications. Visualized solid organ contours appear normal in size. Bones: No suspicious bony lesions. IMPRESSION: No acute abdominal pathology. Nonobstructive bowel gas pattern. Reviewed by: Xavi Paulino MD on 04/24/2024 7:15 PM PST Approved by: Xavi Paulino MD on 04/24/2024 7:15 PM PST Station ID: [id number]
[2024-04-24] MEDS ORDERED: MELATONIN 3 MG TABLET PO PRN (20:11)
[2024-04-24] MEDS: ATORVASTATIN 40 MG TABLET PO SCH (21:02)
[2024-04-25 06:27] LABS: BASOPHILS % (AUTO) 0.9 %; EOSINOPHILS # (AUTO) 0.2 10^3/uL (0.0-0.7); EOSINOPHILS % (AUTO) 3.4 %; HCT - HEMATOCRIT 31.6 % (42.0-52.0); HGB - HEMOGLOBIN 10.7 g/dL (14.0-18.0); LYMPHOCYTES # (AUTO) 1.1 10^3/uL (1.5-3.5); LYMPHOCYTES % (AUTO) 23.6 %; MEAN CORPUSCULAR HEMOGLOBIN 30.8 pg (27.0-31.0); MEAN CORPUSCULAR HGB CONC 33.9 g/dL (32.0-36.0); MEAN CORPUSCULAR VOLUME 91.1 fL (80.0-94.0); MEAN PLATELET VOLUME 9.6 fL (7.4-11.4); MONOCYTES # (AUTO) 0.5 10^3/uL (0.0-1.0); MONOCYTES % (AUTO) 10.2 %; NEUTROPHILS # (AUTO) 2.9 10^3/uL (1.5-6.6); NEUTROPHILS % (AUTO) 61.7 %; PLT - PLATELET COUNT 184 10^3/uL (130-450); RED BLOOD COUNT 3.47 10^6/uL (4.70-6.10); RED CELL DISTRIBUTION WIDTH 15.9 % (12.0-15.0); WHITE BLOOD COUNT 4.7 x10^3/uL (4.8-10.8)
[2024-04-25 06:43] LABS: CALCIUM 8.1 mg/dL (8.5-10.3); CREATININE 1.9 mg/dL (0.6-1.3); POTASSIUM 3.8 mmol/L (3.5-4.5)
[2024-04-25] MEDS: FERROUS SULFATE 325 MG TABLET PO SCH (09:47)
[2024-04-25] MEDS: CALCIUM CARBONATE CHEW 500 MG TABLET PO SCH (09:47)
[2024-04-25] MEDS: MULTIVITAMIN TABLET PO SCH (09:47)
[2024-04-25] MEDS: FINASTERIDE 5 MG TABLET PO SCH (09:47)
[2024-04-25] MEDS: ASCORBIC ACID 500 MG TABLET PO SCH (09:48)
[2024-04-25] MEDS: allopurinoL 100 MG TABLET PO SCH (09:48)
[2024-04-25] MEDS: CITALOPRAM HYDROBROMIDE 20 MG TABLET PO SCH (09:48)
[2024-04-25] MEDS: ASPIRIN CHEW 81 MG TABLET PO SCH (09:48)
[2024-04-25] MEDS: buPROPion XL 150 MG TABLET PO SCH (09:48)
--- NOTE | 2024-04-25 10:20 | PROVIDER PROGRESS NOTE ---
Subjective Prog Note Date Prog Note Date: 04/25/24 Subjective Pt reports feeling: Improved Current Medications Current Medications Current Medications: Current Medications Generic Name Dose Route Start Last Admin Trade Name Freq PRN Reason Stop Dose Admin Acetaminophen 650 mg 04/24/24 00:37 Acetaminophen 325 Mg Tablet PO Q4HR PRN Pain 1 to 4, or Fever Allopurinol 50 mg 04/25/24 09:00 04/25/24 09:48 Allopurinol 100 Mg Tablet PO 50 mg DAILY ALOK Administration Ascorbic Acid 500 mg 04/25/24 09:00 04/25/24 09:48 Ascorbic Acid 500 Mg Tablet PO 500 mg DAILY ALOK Administration Aspirin 81 mg 04/25/24 09:00 04/25/24 09:48 Aspirin Chew 81 Mg Tablet PO 81 mg DAILY ALOK Administration Atorvastatin Calcium 40 mg 04/24/24 21:00 04/24/24 21:02 Atorvastatin 40 Mg Tablet PO 40 mg HS ALOK Administration Bupropion HCl 150 mg 04/25/24 09:00 04/25/24 09:48 Bupropion Xl 150 Mg Tablet PO 150 mg DAILY ALOK Administration Calcium Carbonate/Glycine 500 mg 04/25/24 09:00 04/25/24 09:47 Calcium Carbonate Chew 500 Mg Tablet PO 500 mg DAILY ALOK Administration Citalopram Hydrobromide 40 mg 04/25/24 09:00 04/25/24 09:48 Citalopram Hydrobromide 20 Mg Tablet PO 40 mg DAILY ALOK Administration Ferrous Sulfate 325 mg 04/25/24 08:00 04/25/24 09:47 Ferrous Sulfate 325 Mg Tablet PO 325 mg DAILYWM ALOK Administration Finasteride 5 mg 04/25/24 09:00 04/25/24 09:47 Finasteride 5 Mg Tablet PO 5 mg DAILY ALOK Administration Furosemide 40 mg 04/24/24 09:00 04/25/24 09:47 Furosemide 40 Mg/4 Ml Vial IVP 40 mg DAILY ALOK Administration Heparin Sodium (Porcine) 5,000 unit 04/24/24 09:00 04/25/24 09:48 Heparin 5,000 Unit/Ml Vial SUBQ 5,000 unit BID ALOK Administration Melatonin 3 mg 04/24/24 20:11 Melatonin 3 Mg Tablet PO HS PRN sleep Multivitamins 1 tab 04/25/24 09:00 04/25/24 09:47 Multivitamin Tablet PO 1 tab DAILY ALOK Administration Ondansetron HCl 4 mg 04/24/24 11:03 04/24/24 11:11 Ondansetron 4 Mg/2 Ml Vial IVP 4 mg Q4HR PRN Administration Nausea / Vomiting Polyethylene Glycol 17 gm 04/24/24 20:51 Polyethylene Glycol 3350 17 Gm Packet PO DAILY PRN Bowel Protocol Sodium Chloride 10 ml 04/24/24 00:37 Sodium Chloride Flush 0.9% 10 Ml Syringe IVP PRN PRN NEEDED PER PROVIDER ORDERS Sodium Chloride 10 ml 04/24/24 01:00 04/25/24 09:49 Sodium Chloride Flush 0.9% 10 Ml Syringe IVP 10 ml 0100,0900,1700 ALOK Administration Tamsulosin HCl 0.4 mg 04/24/24 09:00 04/25/24 09:48 Tamsulosin 0.4 Mg Capsule PO 0.4 mg DAILY ALOK Administration Objective Vital Signs/Intake & Output Reviewed Vital Signs: Yes Vital Signs: Vital Signs x48h Temp Pulse Pulse Resp BP Pulse Ox O2 Flow Rate 04/25/24 09:53 2 04/25/24 05:28 37.0 C 69 20 123/60 91 L 4 04/25/24 05:17 70 4 04/25/24 03:05 98 4 04/25/24 03:05 4 Intake & Output: Intake & Output 04/22/24 04/23/24 04/24/24 04/25/24 23:59 23:59 23:59 23:59 Intake Total 999 / 999 Output Total 1500 / 1500 200 / 200 Balance -501 / -501 -200 / -200 Weight (kg) 82.554 kg 82.5 kg 81.5 kg Objective General Appearance: positive No acute distress and Alert Eyes Bilateral: positive Normal inspection and PERRL ENT: positive No signs of dehydration Neck: positive Nml inspection Respiratory: positive Chest non-tender Cardiovascular: positive Regular rate & rhythm and No murmur Abdomen: positive Non-tender Skin: positive Color nml Extremities: positive Non-tender Neurologic/Psychiatric: positive Oriented x3 Lab Results 04/25/24 05:53 04/25/24 05:53 Other Labs: Lab Results x24hrs 04/25/24 04/25/24 Range/Units 09:42 05:53 WBC 4.7 L (4.8-10.8) x10^3/uL RBC 3.47 L (4.70-6.10) 10^6/uL Hgb 10.7 L (14.0-18.0) g/dL Hct 31.6 L (42.0-52.0) % MCV 91.1 (80.0-94.0) fL MCH 30.8 (27.0-31.0) pg MCHC 33.9 (32.0-36.0) g/dL RDW 15.9 H (12.0-15.0) % Plt Count 184 (130-450) 10^3/uL MPV 9.6 (7.4-11.4) fL Neut # (Auto) 2.9 (1.5-6.6) 10^3/uL Lymph # (Auto) 1.1 L (1.5-3.5) 10^3/uL [place] # (Auto) 0.5 (0.0-1.0) 10^3/uL Eos # (Auto) 0.2 (0.0-0.7) 10^3/uL Baso # (Auto) 0.0 (0.0-0.1) 10^3/uL Absolute Nucleated RBC 0.00 x10^3/uL Nucleated RBC % 0.0 /100WBC Sodium 137 (135-145) mmol/L Potassium 3.8 (3.5-4.5) mmol/L Chloride 104 (101-111) mmol/L Carbon Dioxide 28 (21-32) mmol/L Anion Gap 5.0 L (6-13) BUN 30 H (6-20) mg/dL Creatinine 1.9 H (0.6-1.3) mg/dL Estimated GFR (MDRD) 34 L (>89) Glucose 66 L (74-104) mg/dL POC Whole Bld Glucose 65 (70-100) mg/dL Calcium 8.1 L (8.5-10.3) mg/dL Assessment/Plan Problem List (1) Respiratory failure: Impression: Procalcitonin negative, manage as CHF exacerbation Now on 2 L O2 Qualifiers: Chronicity: acute Respiratory failure complication: hypoxia Qualified Code(s): J96.01 - Acute respiratory failure with hypoxia (2) Congestive heart failure (CHF): Impression: Echo ordered O2 as needed 40 mg Lasix IV daily Monitor I&O Elevated troponin likely demand ischemia Qualifiers: Heart failure chronicity: acute Heart failure type: unspecified Q ualified Code(s): I50.9 - Heart failure, unspecified (3) Lewy body dementia: Impression: PT/OT consult given recent falls (4) Atrial fibrillation: Impression: Rate controlled without medication (5) Chronic renal insufficiency: Impression: At baseline Qualifiers: Chronic kidney disease stage: unspecified stage Qualified Code(s): N 18.9 - Chronic kidney disease, unspecified (6) Protein calorie malnutrition: Impression: He is lost 20 kg since June 2023. Nutrition services are following. He has been started on nutritional supplements. I have instructed nursing to assist him with meals. He had a glucose of 65 this morning on his a.m. lab draw. I have added glucose checks ACHS at least for the next day (7) Iron deficiency: Impression: Check ferritin level
--- NOTE | 2024-04-25 12:37 | OT Plan of Care ---
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 Met supine in bed, on 2L NC. A&O to self and date- place with choices. present. Pt performed supine to sit, sit to stand, and ambulation to/from bathroom using RW MIN A - Slowed, guarded pace - noted LOB with turning in small space negotiation. Currently MOD A LB, MIN A UB ADL with full set up and increased time. Overall presents with decreased endurance, activity tolerance, and ADL status. Will benefit from cont OT services during acute stay. Rec d/c to SNF. OT Inpatient Plan PLAN Treatment Frequency: 1x/day Duration: Until goals are met -Discharge Recommendations Discharge Location: [facility] Facility Support/Services Needed: With assist and Home Health O.T. Recommended Equipment: Raised Toilet Seat, Commode, Grab bars, Shower/bath chair, Adaptive Self Care Devices and Other Transport Needs at Discharge: [facility]
[2024-04-25] MEDS: FUROSEMIDE 40 MG/4 ML VIAL IVP SCH (17:03)
[2024-04-26 06:07] LABS: BASOPHILS % (AUTO) 0.7 %; EOSINOPHILS # (AUTO) 0.1 10^3/uL (0.0-0.7); HCT - HEMATOCRIT 34.6 % (42.0-52.0); HGB - HEMOGLOBIN 11.1 g/dL (14.0-18.0); LYMPHOCYTES # (AUTO) 1.1 10^3/uL (1.5-3.5); LYMPHOCYTES % (AUTO) 18.4 %; MEAN CORPUSCULAR HEMOGLOBIN 29.4 pg (27.0-31.0); MEAN CORPUSCULAR HGB CONC 32.1 g/dL (32.0-36.0); MEAN CORPUSCULAR VOLUME 91.5 fL (80.0-94.0); MEAN PLATELET VOLUME 9.4 fL (7.4-11.4); MONOCYTES # (AUTO) 0.6 10^3/uL (0.0-1.0); MONOCYTES % (AUTO) 9.1 %; NEUTROPHILS # (AUTO) 4.2 10^3/uL (1.5-6.6); NEUTROPHILS % (AUTO) 69.5 %; PLT - PLATELET COUNT 189 10^3/uL (130-450); RED BLOOD COUNT 3.78 10^6/uL (4.70-6.10); RED CELL DISTRIBUTION WIDTH 15.9 % (12.0-15.0)
[2024-04-26 06:25] LABS: CALCIUM 8.1 mg/dL (8.5-10.3); POTASSIUM 4.1 mmol/L (3.5-4.5)
--- NOTE | 2024-04-26 12:56 | PROVIDER PROGRESS NOTE ---
Subjective Prog Note Date Prog Note Date: 04/26/24 Subjective Pt reports feeling: Improved Current Medications Current Medications Current Medications: Current Medications Generic Name Dose Route Start Last Admin Trade Name Freq PRN Reason Stop Dose Admin Acetaminophen 650 mg 04/24/24 00:37 Acetaminophen 325 Mg Tablet PO Q4HR PRN Pain 1 to 4, or Fever Allopurinol 50 mg 04/25/24 09:00 04/26/24 09:06 Allopurinol 100 Mg Tablet PO 50 mg DAILY ALOK Administration Ascorbic Acid 500 mg 04/25/24 09:00 04/26/24 09:06 Ascorbic Acid 500 Mg Tablet PO 500 mg DAILY ALOK Administration Aspirin 81 mg 04/25/24 09:00 04/26/24 09:06 Aspirin Chew 81 Mg Tablet PO 81 mg DAILY ALOK Administration Atorvastatin Calcium 40 mg 04/24/24 21:00 04/25/24 21:02 Atorvastatin 40 Mg Tablet PO 40 mg HS ALOK Administration Bupropion HCl 150 mg 04/25/24 09:00 04/26/24 09:06 Bupropion Xl 150 Mg Tablet PO 150 mg DAILY ALOK Administration Calcium Carbonate/Glycine 500 mg 04/25/24 09:00 04/26/24 09:06 Calcium Carbonate Chew 500 Mg Tablet PO 500 mg DAILY ALOK Administration Citalopram Hydrobromide 40 mg 04/25/24 09:00 04/26/24 09:06 Citalopram Hydrobromide 20 Mg Tablet PO 40 mg DAILY ALOK Administration Finasteride 5 mg 04/25/24 09:00 04/26/24 09:06 Finasteride 5 Mg Tablet PO 5 mg DAILY ALOK Administration Furosemide 40 mg 04/25/24 15:00 04/26/24 06:24 Furosemide 40 Mg/4 Ml Vial IVP 40 mg BIDDIURETIC ALOK Administration Heparin Sodium (Porcine) 5,000 unit 04/24/24 09:00 04/26/24 09:05 Heparin 5,000 Unit/Ml Vial SUBQ 5,000 unit BID ALOK Administration Melatonin 3 mg 04/24/24 20:11 Melatonin 3 Mg Tablet PO HS PRN sleep Multivitamins 1 tab 04/25/24 09:00 04/26/24 09:06 Multivitamin Tablet PO 1 tab DAILY ALOK Administration Ondansetron HCl 4 mg 04/24/24 11:03 04/24/24 11:11 Ondansetron 4 Mg/2 Ml Vial IVP 4 mg Q4HR PRN Administration Nausea / Vomiting Polyethylene Glycol 17 gm 04/24/24 20:51 Polyethylene Glycol 3350 17 Gm Packet PO DAILY PRN Bowel Protocol Sodium Chloride 10 ml 04/24/24 00:37 Sodium Chloride Flush 0.9% 10 Ml Syringe IVP PRN PRN NEEDED PER PROVIDER ORDERS Sodium Chloride 10 ml 04/24/24 01:00 04/26/24 09:06 Sodium Chloride Flush 0.9% 10 Ml Syringe IVP 10 ml 0100,0900,1700 ALOK Administration Tamsulosin HCl 0.4 mg 04/24/24 09:00 04/26/24 09:06 Tamsulosin 0.4 Mg Capsule PO 0.4 mg DAILY ALOK Administration Objective Vital Signs/Intake & Output Reviewed Vital Signs: Yes Vital Signs: Vital Signs x48h Temp Pulse Resp BP Pulse Ox O2 Flow Rate 04/26/24 08:08 36.5 C 76 20 132/66 H 96 2 Intake & Output: Intake & Output 04/23/24 04/24/24 04/25/24 04/26/24 23:59 23:59 23:59 23:59 Intake Total 999 / 999 730 / 730 360 / 360 Output Total 1500 / 1500 1050 / 1050 Balance -501 / -501 -320 / -320 360 / 360 Weight (kg) 82.554 kg 82.5 kg 81.5 kg 84 kg Objective General Appearance: positive No acute distress and Alert Eyes Bilateral: positive Normal inspection and PERRL ENT: positive No signs of dehydration Neck: positive Nml inspection Respiratory: positive Chest non-tender Cardiovascular: positive Regular rate & rhythm and No murmur Abdomen: positive Non-tender Skin: positive Color nml Extremities: positive Non-tender Neurologic/Psychiatric: positive Oriented x3 Lab Results 04/26/24 05:40 04/26/24 05:40 Other Labs: Lab Results x24hrs 04/26/24 04/26/24 04/26/24 Range/Units 11:23 08:00 07:29 WBC (4.8-10.8) x10^3/uL RBC (4.70-6.10) 10^6/uL Hgb (14.0-18.0) g/dL Hct (42.0-52.0) % MCV (80.0-94.0) fL MCH (27.0-31.0) pg MCHC (32.0-36.0) g/dL RDW (12.0-15.0) % Plt Count (130-450) 10^3/uL MPV (7.4-11.4) fL Neut # (Auto) (1.5-6.6) 10^3/uL Lymph # (Auto) (1.5-3.5) 10^3/uL [place] # (Auto) (0.0-1.0) 10^3/uL Eos # (Auto) (0.0-0.7) 10^3/uL Baso # (Auto) (0.0-0.1) 10^3/uL Absolute Nucleated RBC x10^3/uL Nucleated RBC % /100WBC Sodium (135-145) mmol/L Potassium (3.5-4.5) mmol/L Chloride (101-111) mmol/L Carbon Dioxide (21-32) mmol/L Anion Gap (6-13) BUN (6-20) mg/dL Creatinine (0.6-1.3) mg/dL Estimated GFR (MDRD) (>89) Glucose (74-104) mg/dL POC Whole Bld Glucose 119 81 74 (70-100) mg/dL Calcium (8.5-10.3) mg/dL Ferritin (23.9-336.2) ng/mL 04/26/24 04/25/24 04/25/24 Range/Units 05:40 20:53 16:44 WBC 6.0 (4.8-10.8) x10^3/uL RBC 3.78 L (4.70-6.10) 10^6/uL Hgb 11.1 L (14.0-18.0) g/dL Hct 34.6 L (42.0-52.0) % MCV 91.5 (80.0-94.0) fL MCH 29.4 (27.0-31.0) pg MCHC 32.1 (32.0-36.0) g/dL RDW 15.9 H (12.0-15.0) % Plt Count 189 (130-450) 10^3/uL MPV 9.4 (7.4-11.4) fL Neut # (Auto) 4.2 (1.5-6.6) 10^3/uL Lymph # (Auto) 1.1 L (1.5-3.5) 10^3/uL [place] # (Auto) 0.6 (0.0-1.0) 10^3/uL Eos # (Auto) 0.1 (0.0-0.7) 10^3/uL Baso # (Auto) 0.0 (0.0-0.1) 10^3/uL Absolute Nucleated RBC 0.00 x10^3/uL Nucleated RBC % 0.0 /100WBC Sodium 137 (135-145) mmol/L Potassium 4.1 (3.5-4.5) mmol/L Chloride 104 (101-111) mmol/L Carbon Dioxide 27 (21-32) mmol/L Anion Gap 6.0 (6-13) BUN 35 H (6-20) mg/dL Creatinine 2.0 H (0.6-1.3) mg/dL Estimated GFR (MDRD) 32 L (>89) Glucose 76 (74-104) mg/dL POC Whole Bld Glucose 116 108 (70-100) mg/dL Calcium 8.1 L (8.5-10.3) mg/dL Ferritin 387.6 H (23.9-336.2) ng/mL Assessment/Plan Problem List (1) Respiratory failure: Impression: Procalcitonin negative, manage as CHF exacerbation Now on 2 L O2 04/26/2024:Continues to need oxygen. Echocardiogram performed today, awaiting read. Will need facility placement at discharge, will likely be medically clear tomorrow Qualifiers: Chronicity: acute Respiratory failure complication: hypoxia Qualified Code(s): J96.01 - Acute respiratory failure with hypoxia (2) Congestive heart failure (CHF): Impression: Echo ordered O2 as needed 40 mg Lasix IV daily Monitor I&O Elevated troponin likely demand ischemia Qualifiers: Heart failure chronicity: acute Heart failure type: unspecified Q ualified Code(s): I50.9 - Heart failure, unspecified (3) Lewy body dementia: Impression: PT/OT consult given recent falls SNF recommended at discharge (4) Atrial fibrillation: Impression: Rate controlled without medication (5) Chronic renal insufficiency: Impression: At baseline Qualifiers: Chronic kidney disease stage: unspecified stage Qualified Code(s): N 18.9 - Chronic kidney disease, unspecified (6) Protein calorie malnutrition: Impression: He is lost 20 kg since June 2023. Nutrition services are following. He has been started on nutritional supplements. I have instructed nursing to assist him with meals. He had a glucose of 65 this morning on his a.m. lab draw. I have added glucose checks ACHS at least for the next day (7) Iron deficiency: Impression: Check ferritin level
[2024-04-27 06:01] LABS: BASOPHILS % (AUTO) 0.5 %; EOSINOPHILS # (AUTO) 0.2 10^3/uL (0.0-0.7); EOSINOPHILS % (AUTO) 2.6 %; HCT - HEMATOCRIT 32.4 % (42.0-52.0); HGB - HEMOGLOBIN 10.8 g/dL (14.0-18.0); LYMPHOCYTES % (AUTO) 17.7 %; MEAN CORPUSCULAR HEMOGLOBIN 30.2 pg (27.0-31.0); MEAN CORPUSCULAR HGB CONC 33.3 g/dL (32.0-36.0); MEAN CORPUSCULAR VOLUME 90.5 fL (80.0-94.0); MEAN PLATELET VOLUME 9.2 fL (7.4-11.4); MONOCYTES # (AUTO) 0.6 10^3/uL (0.0-1.0); MONOCYTES % (AUTO) 9.5 %; NEUTROPHILS % (AUTO) 69.4 %; PLT - PLATELET COUNT 168 10^3/uL (130-450); RED BLOOD COUNT 3.58 10^6/uL (4.70-6.10); RED CELL DISTRIBUTION WIDTH 15.7 % (12.0-15.0); WHITE BLOOD COUNT 5.8 x10^3/uL (4.8-10.8)
[2024-04-27 06:22] LABS: CALCIUM 8.2 mg/dL (8.5-10.3); CREATININE 1.9 mg/dL (0.6-1.3); POTASSIUM 3.6 mmol/L (3.5-4.5)
--- NOTE | 2024-04-27 11:44 | PROVIDER PROGRESS NOTE ---
Subjective Subjective Pt reports feeling: No change Current Medications Current Medications Current Medications: Current Medications Generic Name Dose Route Start Last Admin Trade Name Freq PRN Reason Stop Dose Admin Acetaminophen 650 mg 04/24/24 00:37 Acetaminophen 325 Mg Tablet PO Q4HR PRN Pain 1 to 4, or Fever Allopurinol 50 mg 04/25/24 09:00 04/27/24 09:07 Allopurinol 100 Mg Tablet PO 50 mg DAILY ALOK Administration Ascorbic Acid 500 mg 04/25/24 09:00 04/27/24 09:07 Ascorbic Acid 500 Mg Tablet PO 500 mg DAILY ALOK Administration Aspirin 81 mg 04/25/24 09:00 04/27/24 09:07 Aspirin Chew 81 Mg Tablet PO 81 mg DAILY ALOK Administration Atorvastatin Calcium 40 mg 04/24/24 21:00 04/26/24 21:13 Atorvastatin 40 Mg Tablet PO 40 mg HS ALOK Administration Bupropion HCl 150 mg 04/25/24 09:00 04/27/24 09:07 Bupropion Xl 150 Mg Tablet PO 150 mg DAILY ALOK Administration Calcium Carbonate/Glycine 500 mg 04/25/24 09:00 04/27/24 09:07 Calcium Carbonate Chew 500 Mg Tablet PO 500 mg DAILY ALOK Administration Citalopram Hydrobromide 40 mg 04/25/24 09:00 04/27/24 09:07 Citalopram Hydrobromide 20 Mg Tablet PO 40 mg DAILY ALOK Administration Finasteride 5 mg 04/25/24 09:00 04/27/24 09:07 Finasteride 5 Mg Tablet PO 5 mg DAILY ALOK Administration Furosemide 40 mg 04/25/24 15:00 04/27/24 06:41 Furosemide 40 Mg/4 Ml Vial IVP 40 mg BIDDIURETIC ALOK Administration Heparin Sodium (Porcine) 5,000 unit 04/24/24 09:00 04/27/24 09:07 Heparin 5,000 Unit/Ml Vial SUBQ 5,000 unit BID ALOK Administration Melatonin 3 mg 04/24/24 20:11 Melatonin 3 Mg Tablet PO HS PRN sleep Multivitamins 1 tab 04/25/24 09:00 04/27/24 09:07 Multivitamin Tablet PO 1 tab DAILY ALOK Administration Ondansetron HCl 4 mg 04/24/24 11:03 04/24/24 11:11 Ondansetron 4 Mg/2 Ml Vial IVP 4 mg Q4HR PRN Administration Nausea / Vomiting Polyethylene Glycol 17 gm 04/24/24 20:51 Polyethylene Glycol 3350 17 Gm Packet PO DAILY PRN Bowel Protocol Sodium Chloride 10 ml 04/24/24 00:37 Sodium Chloride Flush 0.9% 10 Ml Syringe IVP PRN PRN NEEDED PER PROVIDER ORDERS Sodium Chloride 10 ml 04/24/24 01:00 04/27/24 09:08 Sodium Chloride Flush 0.9% 10 Ml Syringe IVP 10 ml 0100,0900,1700 ALOK Administration Tamsulosin HCl 0.4 mg 04/24/24 09:00 04/27/24 09:08 Tamsulosin 0.4 Mg Capsule PO 0.4 mg DAILY ALOK Administration Objective Vital Signs/Intake & Output Reviewed Vital Signs: Yes Vital Signs: Vital Signs x48h Temp Pulse Resp BP Pulse Ox O2 Flow Rate 04/27/24 10:03 36.6 C 61 20 119/56 L 94 04/27/24 06:09 36.6 C 78 18 126/63 95 3 Intake & Output: Intake & Output 04/24/24 04/25/24 04/26/24 04/27/24 23:59 23:59 23:59 23:59 Intake Total 999 / 999 730 / 730 1060 / 1060 Output Total 1500 / 1500 1050 / 1050 800 / 800 200 / 200 Balance -501 / -501 -320 / -320 260 / 260 -200 / -200 Weight (kg) 82.5 kg 81.5 kg 84 kg 84 kg Objective General Appearance: positive No acute distress and Alert Eyes Bilateral: positive Normal inspection and PERRL ENT: positive No signs of dehydration Neck: positive Nml inspection Respiratory: positive Chest non-tender Cardiovascular: positive Regular rate & rhythm and No murmur Abdomen: positive Non-tender Skin: positive Color nml Extremities: positive Non-tender Neurologic/Psychiatric: positive Oriented x3 Lab Results 04/27/24 05:48 04/27/24 05:48 Other Labs: Lab Results x24hrs 04/27/24 04/27/24 04/26/24 Range/Units 07:51 05:48 16:47 WBC 5.8 (4.8-10.8) x10^3/uL RBC 3.58 L (4.70-6.10) 10^6/uL Hgb 10.8 L (14.0-18.0) g/dL Hct 32.4 L (42.0-52.0) % MCV 90.5 (80.0-94.0) fL MCH 30.2 (27.0-31.0) pg MCHC 33.3 (32.0-36.0) g/dL RDW 15.7 H (12.0-15.0) % Plt Count 168 (130-450) 10^3/uL MPV 9.2 (7.4-11.4) fL Neut # (Auto) 4.0 (1.5-6.6) 10^3/uL Lymph # (Auto) 1.0 L (1.5-3.5) 10^3/uL [place] # (Auto) 0.6 (0.0-1.0) 10^3/uL Eos # (Auto) 0.2 (0.0-0.7) 10^3/uL Baso # (Auto) 0.0 (0.0-0.1) 10^3/uL Absolute Nucleated RBC 0.00 x10^3/uL Nucleated RBC % 0.0 /100WBC Sodium 139 (135-145) mmol/L Potassium 3.6 (3.5-4.5) mmol/L Chloride 102 (101-111) mmol/L Carbon Dioxide 28 (21-32) mmol/L Anion Gap 9.0 (6-13) BUN 37 H (6-20) mg/dL Creatinine 1.9 H (0.6-1.3) mg/dL Estimated GFR (MDRD) 34 L (>89) Glucose 92 (74-104) mg/dL POC Whole Bld Glucose 84 120 (70-100) mg/dL Calcium 8.2 L (8.5-10.3) mg/dL Assessment/Plan Problem List (1) Respiratory failure: Impression: Procalcitonin negative, manage as CHF exacerbation Now on 2 L O2 04/26/2024:Continues to need oxygen. Echocardiogram performed today, awaiting read. Will need facility placement at discharge, will likely be medically clear tomorrow 04/27/2024: Weaned off oxygen. Echocardiogram performed, awaiting read. Needing facility placement, likely this will not happen until Monday. He is medically clear as of today Qualifiers: Chronicity: acute Respiratory failure complication: hypoxia Qualified Code(s): J96.01 - Acute respiratory failure with hypoxia (2) Congestive heart failure (CHF): Impression: Echo ordered O2 as needed 40 mg Lasix IV daily Monitor I&O Elevated troponin likely demand ischemia 04/27/2024: De-escalating to p.o. Lasix Qualifiers: Heart failure chronicity: acute Heart failure type: unspecified Q ualified Code(s): I50.9 - Heart failure, unspecified (3) Lewy body dementia: Impression: PT/OT consult given recent falls SNF recommended at discharge (4) Atrial fibrillation: Impression: Rate controlled without medication (5) Chronic renal insufficiency: Impression: At baseline Qualifiers: Chronic kidney disease stage: unspecified stage Qualified Code(s): N 18.9 - Chronic kidney disease, unspecified (6) Protein calorie malnutrition: Impression: He is lost 20 kg since June 2023. Nutrition services are following. He has been started on nutritional supplements. I have instructed nursing to assist him with meals. Glucose checks have stabilized now that he is having assistance with meals. They have been discontinued (7) Iron deficiency: Impression: Check ferritin level
[2024-04-27] MEDS: polyethylene glycoL 3350 17 GM PACKET PO PRN (20:07)
[2024-04-28 06:01] LABS: BASOPHILS % (AUTO) 0.5 %; EOSINOPHILS # (AUTO) 0.1 10^3/uL (0.0-0.7); EOSINOPHILS % (AUTO) 2.1 %; HCT - HEMATOCRIT 35.1 % (42.0-52.0); HGB - HEMOGLOBIN 11.6 g/dL (14.0-18.0); LYMPHOCYTES % (AUTO) 18.4 %; MEAN CORPUSCULAR VOLUME 90.7 fL (80.0-94.0); MEAN PLATELET VOLUME 9.6 fL (7.4-11.4); MONOCYTES # (AUTO) 0.6 10^3/uL (0.0-1.0); MONOCYTES % (AUTO) 10.3 %; NEUTROPHILS # (AUTO) 3.9 10^3/uL (1.5-6.6); NEUTROPHILS % (AUTO) 68.3 %; PLT - PLATELET COUNT 175 10^3/uL (130-450); RED BLOOD COUNT 3.87 10^6/uL (4.70-6.10); RED CELL DISTRIBUTION WIDTH 15.9 % (12.0-15.0); WHITE BLOOD COUNT 5.7 x10^3/uL (4.8-10.8)
[2024-04-28 06:19] LABS: CALCIUM 8.4 mg/dL (8.5-10.3); CREATININE 1.7 mg/dL (0.6-1.3); POTASSIUM 3.6 mmol/L (3.5-4.5)
[2024-04-28] MEDS: FUROSEMIDE 40 MG TABLET PO SCH (08:07)
--- NOTE | 2024-04-28 10:38 | PROVIDER PROGRESS NOTE ---
Subjective Prog Note Date Prog Note Date: 04/28/24 Subjective Pt reports feeling: No change Current Medications Current Medications Current Medications: Current Medications Generic Name Dose Route Start Last Admin Trade Name Freq PRN Reason Stop Dose Admin Acetaminophen 650 mg 04/24/24 00:37 Acetaminophen 325 Mg Tablet PO Q4HR PRN Pain 1 to 4, or Fever Allopurinol 50 mg 04/25/24 09:00 04/28/24 08:07 Allopurinol 100 Mg Tablet PO 50 mg DAILY ALOK Administration Ascorbic Acid 500 mg 04/25/24 09:00 04/28/24 08:07 Ascorbic Acid 500 Mg Tablet PO 500 mg DAILY ALOK Administration Aspirin 81 mg 04/25/24 09:00 04/28/24 08:07 Aspirin Chew 81 Mg Tablet PO 81 mg DAILY ALOK Administration Atorvastatin Calcium 40 mg 04/24/24 21:00 04/27/24 20:07 Atorvastatin 40 Mg Tablet PO 40 mg HS ALOK Administration Bupropion HCl 150 mg 04/25/24 09:00 04/28/24 08:07 Bupropion Xl 150 Mg Tablet PO 150 mg DAILY ALOK Administration Calcium Carbonate/Glycine 500 mg 04/25/24 09:00 04/28/24 08:07 Calcium Carbonate Chew 500 Mg Tablet PO 500 mg DAILY ALOK Administration Citalopram Hydrobromide 40 mg 04/25/24 09:00 04/28/24 08:06 Citalopram Hydrobromide 20 Mg Tablet PO 40 mg DAILY ALOK Administration Finasteride 5 mg 04/25/24 09:00 04/28/24 08:07 Finasteride 5 Mg Tablet PO 5 mg DAILY ALOK Administration Furosemide 40 mg 04/28/24 09:00 04/28/24 08:07 Furosemide 40 Mg Tablet PO 40 mg DAILY ALOK Administration Heparin Sodium (Porcine) 5,000 unit 04/24/24 09:00 04/28/24 08:06 Heparin 5,000 Unit/Ml Vial SUBQ 5,000 unit BID ALOK Administration Melatonin 3 mg 04/24/24 20:11 Melatonin 3 Mg Tablet PO HS PRN sleep Multivitamins 1 tab 04/25/24 09:00 04/28/24 08:07 Multivitamin Tablet PO 1 tab DAILY ALOK Administration Ondansetron HCl 4 mg 04/24/24 11:03 04/24/24 11:11 Ondansetron 4 Mg/2 Ml Vial IVP 4 mg Q4HR PRN Administration Nausea / Vomiting Polyethylene Glycol 17 gm 04/24/24 20:51 04/28/24 08:14 Polyethylene Glycol 3350 17 Gm Packet PO 17 gm DAILY PRN Administration Bowel Protocol Sodium Chloride 10 ml 04/24/24 00:37 Sodium Chloride Flush 0.9% 10 Ml Syringe IVP PRN PRN NEEDED PER PROVIDER ORDERS Sodium Chloride 10 ml 04/24/24 01:00 04/28/24 08:07 Sodium Chloride Flush 0.9% 10 Ml Syringe IVP 10 ml 0100,0900,1700 ALOK Administration Tamsulosin HCl 0.4 mg 04/24/24 09:00 04/28/24 08:06 Tamsulosin 0.4 Mg Capsule PO 0.4 mg DAILY ALOK Administration Objective Vital Signs/Intake & Output Reviewed Vital Signs: Yes Vital Signs: Vital Signs x48h Temp Pulse Resp BP Pulse Ox 04/28/24 09:00 36.5 C 74 20 127/66 95 Intake & Output: Intake & Output 04/25/24 04/26/24 04/27/24 04/28/24 23:59 23:59 23:59 23:59 Intake Total 730 / 730 1060 / 1060 720 / 720 120 / 120 Output Total 1050 / 1050 800 / 800 1025 / 1025 300 / 300 Balance -320 / -320 260 / 260 -305 / -305 -180 / -180 Weight (kg) 81.5 kg 84 kg 84 kg 84 kg Objective General Appearance: positive No acute distress and Alert Eyes Bilateral: positive Normal inspection and PERRL ENT: positive No signs of dehydration Neck: positive Nml inspection Respiratory: positive Chest non-tender Cardiovascular: positive Regular rate & rhythm and No murmur Abdomen: positive Non-tender Skin: positive Color nml Extremities: positive Non-tender Neurologic/Psychiatric: positive Oriented x3 Lab Results 04/28/24 05:42 04/28/24 05:42 Other Labs: Lab Results x24hrs 04/28/24 Range/Units 05:42 WBC 5.7 (4.8-10.8) x10^3/uL RBC 3.87 L (4.70-6.10) 10^6/uL Hgb 11.6 L (14.0-18.0) g/dL Hct 35.1 L (42.0-52.0) % MCV 90.7 (80.0-94.0) fL MCH 30.0 (27.0-31.0) pg MCHC 33.0 (32.0-36.0) g/dL RDW 15.9 H (12.0-15.0) % Plt Count 175 (130-450) 10^3/uL MPV 9.6 (7.4-11.4) fL Neut # (Auto) 3.9 (1.5-6.6) 10^3/uL Lymph # (Auto) 1.0 L (1.5-3.5) 10^3/uL [place] # (Auto) 0.6 (0.0-1.0) 10^3/uL Eos # (Auto) 0.1 (0.0-0.7) 10^3/uL Baso # (Auto) 0.0 (0.0-0.1) 10^3/uL Absolute Nucleated RBC 0.00 x10^3/uL Nucleated RBC % 0.0 /100WBC Sodium 137 (135-145) mmol/L Potassium 3.6 (3.5-4.5) mmol/L Chloride 103 (101-111) mmol/L Carbon Dioxide 28 (21-32) mmol/L Anion Gap 6.0 (6-13) BUN 33 H (6-20) mg/dL Creatinine 1.7 H (0.6-1.3) mg/dL Estimated GFR (MDRD) 38 L (>89) Glucose 92 (74-104) mg/dL Calcium 8.4 L (8.5-10.3) mg/dL Assessment/Plan Problem List (1) Respiratory failure: Impression: Procalcitonin negative, manage as CHF exacerbation Now on 2 L O2 04/26/2024:Continues to need oxygen. Echocardiogram performed today, awaiting read. Will need facility placement at discharge, will likely be medically clear tomorrow 04/27/2024: Weaned off oxygen. Echocardiogram performed, awaiting read. Needing facility placement, likely this will not happen until Monday. He is medically clear as of today 04/28/2024: Medically clear, today is first avoidable day. Echocardiogram still pending, will likely not be read until Monday. Will have update on placement on Monday Qualifiers: Chronicity: acute Respiratory failure complication: hypoxia Qualified Code(s): J96.01 - Acute respiratory failure with hypoxia (2) Congestive heart failure (CHF): Impression: Echo ordered O2 as needed 40 mg Lasix IV daily Monitor I&O Elevated troponin likely demand ischemia 04/27/2024: De-escalating to p.o. Lasix Qualifiers: Heart failure chronicity: acute Heart failure type: unspecified Q ualified Code(s): I50.9 - Heart failure, unspecified (3) Lewy body dementia: Impression: PT/OT consult given recent falls SNF recommended at discharge (4) Atrial fibrillation: Impression: Rate controlled without medication (5) Chronic renal insufficiency: Impression: At baseline Qualifiers: Chronic kidney disease stage: unspecified stage Qualified Code(s): N 18.9 - Chronic kidney disease, unspecified (6) Protein calorie malnutrition: Impression: He is lost 20 kg since June 2023. Nutrition services are following. He has been started on nutritional supplements. I have instructed nursing to assist him with meals. Glucose checks have stabilized now that he is having assistance with meals. They have been discontinued (7) Iron deficiency: Impression: Ferritin was 387.6. Iron supplementation has been stopped
[2024-04-28] MEDS: SODIUM CHLORIDE FLUSH 0.9% 10 ML SYRINGE IVP PRN (17:00)
[2024-04-29 06:04] LABS: BASOPHILS % (AUTO) 0.5 %; EOSINOPHILS # (AUTO) 0.1 10^3/uL (0.0-0.7); HCT - HEMATOCRIT 35.5 % (42.0-52.0); HGB - HEMOGLOBIN 11.9 g/dL (14.0-18.0); LYMPHOCYTES % (AUTO) 16.7 %; MEAN CORPUSCULAR HEMOGLOBIN 30.3 pg (27.0-31.0); MEAN CORPUSCULAR HGB CONC 33.5 g/dL (32.0-36.0); MEAN CORPUSCULAR VOLUME 90.3 fL (80.0-94.0); MEAN PLATELET VOLUME 9.5 fL (7.4-11.4); MONOCYTES # (AUTO) 0.6 10^3/uL (0.0-1.0); MONOCYTES % (AUTO) 9.9 %; NEUTROPHILS # (AUTO) 4.2 10^3/uL (1.5-6.6); NEUTROPHILS % (AUTO) 70.7 %; PLT - PLATELET COUNT 173 10^3/uL (130-450); RED BLOOD COUNT 3.93 10^6/uL (4.70-6.10); RED CELL DISTRIBUTION WIDTH 15.9 % (12.0-15.0)
[2024-04-29 06:18] LABS: CALCIUM 8.5 mg/dL (8.5-10.3); CREATININE 1.6 mg/dL (0.6-1.3); POTASSIUM 3.7 mmol/L (3.5-4.5)
--- NOTE | 2024-04-29 14:57 | PROVIDER PROGRESS NOTE ---
Subjective Prog Note Date Prog Note Date: 04/29/24 Subjective Pt reports feeling: No change Current Medications Current Medications Current Medications: Current Medications Generic Name Dose Route Start Last Admin Trade Name Freq PRN Reason Stop Dose Admin Acetaminophen 650 mg 04/24/24 00:37 Acetaminophen 325 Mg Tablet PO Q4HR PRN Pain 1 to 4, or Fever Allopurinol 50 mg 04/25/24 09:00 04/29/24 10:41 Allopurinol 100 Mg Tablet PO 50 mg DAILY ALOK Administration Ascorbic Acid 500 mg 04/25/24 09:00 04/29/24 10:41 Ascorbic Acid 500 Mg Tablet PO 500 mg DAILY ALOK Administration Aspirin 81 mg 04/25/24 09:00 04/29/24 10:40 Aspirin Chew 81 Mg Tablet PO 81 mg DAILY ALOK Administration Atorvastatin Calcium 40 mg 04/24/24 21:00 04/28/24 21:51 Atorvastatin 40 Mg Tablet PO 40 mg HS ALOK Administration Bupropion HCl 150 mg 04/25/24 09:00 04/29/24 10:42 Bupropion Xl 150 Mg Tablet PO 150 mg DAILY ALOK Administration Calcium Carbonate/Glycine 500 mg 04/25/24 09:00 04/29/24 10:41 Calcium Carbonate Chew 500 Mg Tablet PO 500 mg DAILY ALOK Administration Citalopram Hydrobromide 40 mg 04/25/24 09:00 04/29/24 10:41 Citalopram Hydrobromide 20 Mg Tablet PO 40 mg DAILY ALOK Administration Finasteride 5 mg 04/25/24 09:00 04/29/24 10:42 Finasteride 5 Mg Tablet PO 5 mg DAILY ALOK Administration Furosemide 40 mg 04/28/24 09:00 04/29/24 10:41 Furosemide 40 Mg Tablet PO 40 mg DAILY ALOK Administration Heparin Sodium (Porcine) 5,000 unit 04/24/24 09:00 04/29/24 09:31 Heparin 5,000 Unit/Ml Vial SUBQ 5,000 unit BID ALOK Administration Melatonin 3 mg 04/24/24 20:11 Melatonin 3 Mg Tablet PO HS PRN sleep Multivitamins 1 tab 04/25/24 09:00 04/29/24 10:42 Multivitamin Tablet PO 1 tab DAILY ALOK Administration Ondansetron HCl 4 mg 04/24/24 11:03 04/24/24 11:11 Ondansetron 4 Mg/2 Ml Vial IVP 4 mg Q4HR PRN Administration Nausea / Vomiting Polyethylene Glycol 17 gm 04/24/24 20:51 04/28/24 08:14 Polyethylene Glycol 3350 17 Gm Packet PO 17 gm DAILY PRN Administration Bowel Protocol Sodium Chloride 10 ml 04/24/24 00:37 04/28/24 17:00 Sodium Chloride Flush 0.9% 10 Ml Syringe IVP 10 ml PRN PRN Administration NEEDED PER PROVIDER ORDERS Sodium Chloride 10 ml 04/24/24 01:00 04/29/24 09:31 Sodium Chloride Flush 0.9% 10 Ml Syringe IVP 10 ml 0100,0900,1700 ALOK Administration Tamsulosin HCl 0.4 mg 04/24/24 09:00 04/29/24 10:42 Tamsulosin 0.4 Mg Capsule PO 0.4 mg DAILY ALOK Administration Objective Vital Signs/Intake & Output Reviewed Vital Signs: Yes Vital Signs: Vital Signs x48h Temp Pulse Resp BP Pulse Ox O2 Flow Rate 04/29/24 08:40 36.6 C 100 24 143/77 H 100 3 Intake & Output: Intake & Output 04/26/24 04/27/24 04/28/24 04/29/24 23:59 23:59 23:59 23:59 Intake Total 1060 / 1060 720 / 720 300 / 300 320 / 320 Output Total 800 / 800 1025 / 1025 825 / 825 150 / 150 Balance 260 / 260 -305 / -305 -525 / -525 170 / 170 Weight (kg) 84 kg 84 kg 84 kg 84 kg Objective General Appearance: positive No acute distress and Alert Eyes Bilateral: positive Normal inspection and PERRL ENT: positive No signs of dehydration Neck: positive Nml inspection Respiratory: positive Chest non-tender Cardiovascular: positive Regular rate & rhythm and No murmur Abdomen: positive Non-tender Skin: positive Color nml Extremities: positive Non-tender Neurologic/Psychiatric: positive Oriented x3 Lab Results 04/29/24 05:25 04/29/24 05:25 Other Labs: Lab Results x24hrs 04/29/24 Range/Units 05:25 WBC 6.0 (4.8-10.8) x10^3/uL RBC 3.93 L (4.70-6.10) 10^6/uL Hgb 11.9 L (14.0-18.0) g/dL Hct 35.5 L (42.0-52.0) % MCV 90.3 (80.0-94.0) fL MCH 30.3 (27.0-31.0) pg MCHC 33.5 (32.0-36.0) g/dL RDW 15.9 H (12.0-15.0) % Plt Count 173 (130-450) 10^3/uL MPV 9.5 (7.4-11.4) fL Neut # (Auto) 4.2 (1.5-6.6) 10^3/uL Lymph # (Auto) 1.0 L (1.5-3.5) 10^3/uL [place] # (Auto) 0.6 (0.0-1.0) 10^3/uL Eos # (Auto) 0.1 (0.0-0.7) 10^3/uL Baso # (Auto) 0.0 (0.0-0.1) 10^3/uL Absolute Nucleated RBC 0.00 x10^3/uL Nucleated RBC % 0.0 /100WBC Sodium 139 (135-145) mmol/L Potassium 3.7 (3.5-4.5) mmol/L Chloride 104 (101-111) mmol/L Carbon Dioxide 29 (21-32) mmol/L Anion Gap 6.0 (6-13) BUN 31 H (6-20) mg/dL Creatinine 1.6 H (0.6-1.3) mg/dL Estimated GFR (MDRD) 41 L (>89) Glucose 88 (74-104) mg/dL Calcium 8.5 (8.5-10.3) mg/dL Assessment/Plan Problem List (1) Respiratory failure: Impression: Procalcitonin negative, manage as CHF exacerbation Now on 2 L O2 04/26/2024:Continues to need oxygen. Echocardiogram performed today, awaiting read. Will need facility placement at discharge, will likely be medically clear tomorrow 04/27/2024: Weaned off oxygen. Echocardiogram performed, awaiting read. Needing facility placement, likely this will not happen until Monday. He is medically clear as of today 04/28/2024: Medically clear, today is first avoidable day. Echocardiogram still pending, will likely not be read until Monday. Will have update on placement on Monday04/29/2024: Potential placement in [place] tomorrow. No new concerns. Still awaiting echo Qualifiers: Chronicity: acute Respiratory failure complication: hypoxia Qualified Code(s): J96.01 - Acute respiratory failure with hypoxia (2) Congestive heart failure (CHF): Impression: Echo ordered O2 as needed 40 mg Lasix IV daily Monitor I&O Elevated troponin likely demand ischemia 04/27/2024: De-escalating to p.o. Lasix Qualifiers: Heart failure chronicity: acute Heart failure type: unspecified Q ualified Code(s): I50.9 - Heart failure, unspecified (3) Lewy body dementia: Impression: PT/OT consult given recent falls SNF recommended at discharge (4) Atrial fibrillation: Impression: Rate controlled without medication (5) Chronic renal insufficiency: Impression: At baseline Qualifiers: Chronic kidney disease stage: unspecified stage Qualified Code(s): N 18.9 - Chronic kidney disease, unspecified (6) Protein calorie malnutrition: Impression: He is lost 20 kg since June 2023. Nutrition services are following. He has been started on nutritional supplements. I have instructed nursing to assist him with meals. Glucose checks have stabilized now that he is having assistance with meals. They have been discontinued (7) Iron deficiency: Impression: Ferritin was 387.6. Iron supplementation has been stopped
[2024-04-29 15:42] VITALS: TEMP 97.7
[2024-04-30 00:07] VITALS: O2SAT 96
--- NOTE | 2024-04-30 09:27 | Discharge Summary ---
Discharge Summary Admit Date: 04/24/24 Discharge Date: 04/30/24 Discharging Provider: Jose Conteh NP Primary Care Provider: Ann-Marie Saba Code Status: Do Not Attempt Resuscitation DIAGNOSES Admission Diagnoses: Acute respiratory failure with hypoxia Acute on chronic diastolic heart failure SIRS Hypoalbuminemia Elevated alkaline phosphatase level Elevated troponin Multiple falls BPH Depression Lewy body dementia CKD stage III Atrial fibrillation Overweight, BMI 25-29 RAMA on CPAP History of bladder cancer Discharge Diagnoses with Status of Each Condition: Acute respiratory failure with hypoxiaresolved Acute on chronic diastolic heart failureresolved SIRSresolved Hypoalbuminemiaresolved Elevated alkaline phosphatase levelresolved Elevated troponinresolved Multiple fallschronic BPHchronic Depressionchronic Lewy body dementiachronic CKD stage IIIchronic Atrial fibrillationchronic Overweight, BMI 25-29chronic RAMA on CPAPchronic History of bladder cancerchronic HPI History of Present Illness: 89 yo M who presented with shortness of breath. He states yesterday morning he developed trouble breathing, his is present and reports his breathing has been steadily worsening over weeks. He has had chest xrays over this time showing fluid but not a lot. The doctor at the time said the fluid was there, she increased his torsemide with half a pill and added potassium per his instruction for over a week. She states it has gradually continued to get worse. He requested that she call 911 which she states is unusual for him. says she caught something going around like a chest cold but she did not get tested. He has not had flu shot and last covid booster this past year. He states they are in a hospital room, he states it is 2025, he knows his wifes name is Shonna. In ER, he received Lasix 60mg IV once. Of note, he had cxr imaging 03/18 for tachypnea which revealed moderate unchanged R pleural effusion, unchanged interstitial thickening concerning for viral pneumonia vs moderate pulmonary edema compared to 02/27. HOSPITAL COURSE Hospital Course: Patient was admitted to the hospital and placed on oxygen. Procalcitonin was checked and found to be negative. He was aggressively diuresed with IV Lasix. Troponins were trended to peak, and they came back down. LFTs were elevated on admit, trending down. Echocardiogram was performed, EF was found to be 45 to 50%. He was evaluated by PT/OT, and recommendation was made for SNF at discharge. He stayed here for a few days after being medically stable while pending placement. Today, he is excepted by a SNF in [place] ALLERGIES Allergies Allergy/AdvReac Type Severity Reaction Status Date / Time lisinopril Allergy Unknown Verified 04/23/24 21:58 MEDICATIONS Ambulatory Orders Medication Instructions Recorded Confirmed ferrous sulfate, dried 159 mg (45 See Rx Instructions .Route .COMPLEX 10/03/14 04/24/24 mg iron) tablet,extended release (iron ER) finasteride 5 mg tablet 5 mg PO DAILY 10/03/14 04/24/24 omega-3 fatty acids-fish oil 340 1 cap PO DAILY 10/03/14 04/24/24 mg-1,000 mg capsule (Fish Oil) glucosamine ER 500 mg-chondroitin 1 tab PO DAILY 08/18/17 04/24/24 200 mg tablet,extended release (Endur-Flex) multivitamin 1 ea PO DAILY 08/18/17 04/24/24 aspirin 81 mg chewable tablet (St 81 mg PO DAILY 04/08/21 04/24/24 Daryl Aspirin) bupropion HCl 150 mg 24 hr tablet, 150 mg PO DAILY 04/08/21 04/24/24 extended release melatonin 3 mg capsule 3 mg PO HS PRN sleep 04/08/21 04/24/24 allopurinol 100 mg tablet 50 mg PO DAILY 07/04/23 04/24/24 ascorbic acid (vitamin C) 500 mg See Rx Instructions .Route .COMPLEX 07/04/23 04/24/24 chewable tablet (C-500) atorvastatin 40 mg tablet 40 mg PO HS 07/04/23 04/24/24 calcium carbonate 600 mg PO DAILY 07/04/23 04/24/24 citalopram 40 mg tablet 40 mg PO DAILY 04/24/24 04/24/24 furosemide 40 mg tablet 40 mg PO DAILY 30 days #30 tabs 04/30/24 tamsulosin 0.4 mg capsule 0.4 mg PO DAILY 30 days #30 caps 04/30/24 PHYSICAL EXAM AT DISCHARGE General Appearance: positive No acute distress and Alert Eyes Bilateral: positive Normal inspection ENT: positive ENT inspection nml Neck: positive Nml inspection Respiratory: positive Chest non-tender Cardiovascular: positive Irregularly irregular Peripheral Pulses: positive 2+ Abdomen: positive Non-tender Skin: positive Color nml Extremities: positive Non-tender Neurologic/Psychiatric: positive Oriented x3 and Other (Intermittent confusion due to dementia) LABS 04/29/24 05:25 04/29/24 05:25 DIAGNOSTIC IMAGING Diagnostic Imaging Results: Final report reviewed Diagnostic Imaging Results Comments: Echocardiogram, EF 45 to 50% FOLLOW UP Follow Up: With PCP or facility provider TIME SPENT Time Spent in Discharge (Minutes): 35 Discharge Plan Discharge Patient Disposition: 03 [facility] DC/Xfer Condition: Fair Medically Cleared Date:: 04/30/24 Prescriptions: New tamsulosin 0.4 mg Capsule 0.4 mg PO DAILY 30 Days Qty: 30 0RF furosemide 40 mg Tablet 40 mg PO DAILY 30 Days Qty: 30 0RF Continued finasteride 5 MG tablet 5 mg PO DAILY iron 159 MG tablet extended release See Rx Instructions .Route .COMPLEX Rx Instructions: DOSE UNKNOWN ON WRITTEN MED LIST Fish Oil 1 EACH capsule 1 cap PO DAILY multivitamin 1 EACH capsule 1 ea PO DAILY Endur-Flex 1 EACH tablet extended release 1 tab PO DAILY melatonin 3 MG capsule 3 mg PO HS PRN (Reason: sleep) aspirin [St Daryl Aspirin] 81 MG tablet,chewable 81 mg PO DAILY bupropion HCl 150 MG tablet extended release 24 hr 150 mg PO DAILY atorvastatin 40 MG tablet 40 mg PO HS allopurinol 100 MG tablet 50 mg PO DAILY ascorbic acid (vitamin C) [C-500] 500 MG tablet,chewable See Rx Instructions .Route .COMPLEX Rx Instructions: DOSE UNKNOWN ON WRITTEN MED LIST calcium carbonate 600 MG tablet 600 mg PO DAILY citalopram 40 mg tablet 40 mg PO DAILY Patient Comments: TAKE 1 TABLET DAILY Discontinued torsemide 10 MG tablet 10 mg PO DAILY Activity Restrictions: Activity as Tolerated Diet: Cardiac Health Concerns: You are a 89-year-old male with history of fall, chronic renal insufficiency, congestive heart failure, atrial fibrillation, Lewy body dementia who presented with shortness of breath. You were found to have a CHF exacerbation, so you were admitted for oxygen and aggressive diuresis. Your respiratory status is much better now, but physical therapy says that you are not safe to go home due to generalized weakness. You are being transferred to a facility where you will continue to receive physical therapy. I am discontinuing your torsemide, and replacing it with Lasix 40 mg by mouth daily. I would like for you to remain as active as possible in the new facility, and gain as much strength that she can. Follow-up with PCP within 2 weeks or as directed by staff at the next facility Print Language: Greenlandic Patient Instructions: Heart Failure Stand Alone Forms: SNF Discharge
[2024-04-30 12:28] VITALS: BP 116/52
== END 2024-04-30 12:15 | DRG 189 ==
LOC: ED 21:50 → MS2 04-24 00:38
PROVIDERS: ADMIT Internal Medicine; ATTEND Internal Medicine
DX: Z79.82 Long term (current) use of aspirin; N40.0 Benign prostatic hyperplasia without lower urinary tract symptoms; G47.33 Obstructive sleep apnea (adult) (pediatric); Z91.81 History of falling; I50.33 Acute on chronic diastolic (congestive) heart failure; Z85.51 Personal history of malignant neoplasm of bladder; I44.7 Left bundle-branch block, unspecified; Z68.25 Body mass index [BMI] 25.0-25.9, adult; R79.89 Other specified abnormal findings of blood chemistry; F32.A Depression, unspecified; R74.8 Abnormal levels of other serum enzymes; R53.1 Weakness; E88.09 Other disorders of plasma-protein metabolism, not elsewhere classified; I48.91 Unspecified atrial fibrillation; E61.1 Iron deficiency; G31.83 Neurocognitive disorder with Lewy bodies; J96.01 Acute respiratory failure with hypoxia; G47.30 Sleep apnea, unspecified; E46 Unspecified protein-calorie malnutrition; F02.80 Dementia in other diseases classified elsewhere, unspecified severity, without behavioral disturbance, psychotic disturbance, mood disturbance, and anxiety; Z87.891 Personal history of nicotine dependence; Z66 Do not resuscitate; I50.9 Heart failure, unspecified; N18.30 Chronic kidney disease, stage 3 unspecified; R65.10 Systemic inflammatory response syndrome (SIRS) of non-infectious origin without acute organ dysfunction